=== PATIENT | female | born 1950 | race Caucasian/White ===

== ENCOUNTER 2016-05-12 05:06 | Inpatient (IN) ==
[2016-05-12 06:09] LABS: BASO% 0.2 % (0.0-0.8); HEMATOCRIT 44.8 % (37.0-47.0); HEMOGLOBIN 16.4 g/dL (12.0-16.0); IMM GRAN# 0.08 X1000 (0.0-0.04); IMM GRAN% 0.8 % (0.0-0.5); LYMPH# 1.56 X1000 (1.2-3.4); LYMPH% 14.9 % (20.5-51.1); MANUAL DIFF NEEDED? NO; MCH 30.5 PG (27-31); MCHC 36.6 g/dL (33-37); MCV 83.4 FL (81-99); MONO# 0.71 X1000 (0.11-0.59); MONO% 6.8 % (1.7-9.3); MPV 9.9 FL (7.4-10.4); NEUT% 77.3 % (42.2-75.2); PLT 254 X1000 (130-400); RBC 5.37 XMIL (4.2-5.4)
[2016-05-12 06:12] LABS: URINE CULTURE NEEDED? NO; URINE MICRO REVIEW NEEDED? NO; URINE SOURCE CLEAN CATCH
--- NOTE | 2016-05-12 06:17 | PROVIDER DOCUMENTATION ---
HPI-Neurological Disorder - General Chief Complaint: Stroke-Like Symptoms Stated Complaint: fall Time Seen by Provider: 05/12/16 06:10 Source: patient, family Allergies/Adverse Reactions: Patient Allergies Allergy/AdvReac Type Severity Reaction Status Date / Time NSAIDS (Non-Steroidal Allergy Severe ANGIOEDEMA Verified 07/29/15 22:41 Anti-Inflamma aspirin Allergy ANGIOEDEMA Verified 07/29/15 22:41 ramipril [From Altace] Allergy COUGH Verified 07/29/15 22:41 Home Medications: Home Medication List Medication Instructions Recorded Confirmed Last Taken Type Carisoprodol [Soma] 350 mg PO HS PRN 05/12/16 05/12/16 05/11/16 21:00 History 350 MG Clonidine [Catapres] 0.1 mg PO TID 05/12/16 05/12/16 05/11/16 21:00 History 0.1 MG Clopidogrel Bisulfate [Plavix] 75 mg PO DAILY 05/12/16 05/12/16 05/11/16 09:00 History 75 MG Losartan/Hydrochlorothiazide 1 dose PO DAILY 05/12/16 05/12/16 05/11/16 09:00 History [Hyzaar 50-12.5 Tablet] 1 DOSE Nebivolol HCl [Bystolic] 10 mg PO DAILY 05/12/16 05/12/16 05/11/16 09:00 History 10 MG Pregabalin [Lyrica] 75 mg PO BID 05/12/16 05/12/16 05/11/16 21:00 History 75 MG - History of Present Illness-Neuro Nature of Presenting Problem: per daughter, said her called her, and said had found pt in floor, totally unresponsive. Pt does not know how she got in floor. Admits to small H/A , and nausea. Denies all other, including weakness. later arrived, said he heard noise about 0430, went in BR, prt was unresponsive. She had similar about a year ago, was thought to be due to benzos. Nurse says when she arrived, she could not even tell him her name Severity: reports: mild Onset/Duration: reports: abrupt Timing: reports: gone now Context: reports: found unresponsive by family Approximate time patient was last seen normal?: 22:00 Character of Altered Mental Status: reports: other (was unresponsive, but is A& O now) Any recent trauma/injury?: reports: none New weakness or altered sensation location:: reports: none Cognitive Baseline: alert, oriented x3 Gait Baseline: walks without assistance Associated Symptoms: reports: headache, nausea Similar Symptoms Previously?: Yes (see HPI) Recently seen or treated by another doctor?: No Review of Systems - Adult - REVIEW OF SYSTEMS - ADULT Constitutional: reports: no symptoms reported Eyes: reports: no symptoms reported Ears, Nose, Mouth & Throat: reports: no symptoms reported Cardiovascular: reports: no symptoms reported Respiratory: reports: no symptoms reported Gastrointestinal: reports: no symptoms reported Genitourinary: reports: no symptoms reported Musculoskeletal: reports: no symptoms reported Integumentary: reports: no symptoms reported Neurological: reports: no symptoms reported Psychiatric: reports: no symptoms reported Endocrine: reports: no symptoms reported Hematologic/Lymphatic: reports: no symptoms reported Allergic/Immunologic: reports: no symptoms reported Past History - Adult - PAST MEDICAL HISTORY-ADULT Review of Records: reports: Medications Reviewed Major Childhood Illnesses: reports: denies history Cardiovascular: reports: HTN Neurological: reports: CVA - IMMUNIZATION STATUS Childhood Immunizations: See Nurse Assessment Flu Vaccine: See Nurse Assessment - SOCIAL HISTORY Smoking: denies Physical Exam- Neurological - Physical Exam-Neuro Initial Vital Signs Reviewed: Yes General Appearance: appears well, alert, no apparent distress Eye Exam: bilateral eye: normal inspection, PERRL, EOMI HENMT: normocephalic/atraumatic, moist mucous membranes, normal ENT inspection, pharynx normal Head Injury: no evidence of injury Neck: full range of motion, supple, normal inspection Respiratory: lungs clear, normal breath sounds, no respiratory distress Cardiovascular: normal peripheral pulses, regular rate, rhythm, no edema, no gallop, no murmur Abdominal Exam: non tender, soft Peripheral Pulses: radial (R): 4+, radial (L): 4+ Extremity: normal range of motion, non-tender, no pedal edema 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 Exam: normal hearing, normal speech, PERRL, other (CN II-XII intact) Motor/Sensory: no motor deficit, no sensory deficit, no pronator drift Neurologic: no motor/sensory deficits, other (CN II-XII intact) Integumentary: normal color, normal turgor, warm/dry Psych/Mental Status: normal mood/affect, normal thought content, normal thought process, oriented x 3, other (oriented to self, year, month, not day of week, and is oriented to pl,kasandra, at my exam) Progress - PLAN OF CARE/RESULTS Progress/Plan/Lab Results: Vital Signs Temp Pulse Resp BP Pulse Ox 05/12/16 06:49 79 16 171/106 100 05/12/16 05:10 98.0 F 59 L 16 140/91 97 NSAIDS (Non-Steroidal Anti-Inflamma Allergy (Severe, Verified 07/29/15 22:41) ANGIOEDEMA aspirin Allergy (Verified 07/29/15 22:41) ANGIOEDEMA ramipril [From Altace] Allergy (Verified 07/29/15 22:41) COUGH Carisoprodol [Soma] 350 mg PO HS PRN 05/12/16 Clonidine [Catapres] 0.1 mg PO TID 05/12/16 Clopidogrel Bisulfate [Plavix] 75 mg PO DAILY 05/12/16 Losartan/Hydrochlorothiazide [Hyzaar 50-12.5 Tablet] 1 dose PO DAILY 05/12/16 Nebivolol HCl [Bystolic] 10 mg PO DAILY 05/12/16 Pregabalin [Lyrica] 75 mg PO BID 05/12/16 Dietary Diet Regular Diet Start ThuMay 12 0746 Laboratory 05/12/16 05/12/16 05/12/16 07:25 06:06 06:06 WBC RBC Hgb Hct MCV MCH MCHC RDW Std Deviation Plt Count MPV Immature Gran % (Auto) Neut % (Auto) Lymph % (Auto) [place] % (Auto) Eos % (Auto) Baso % (Auto) Immature Gran # (Auto) Neut # (Auto) Lymph # (Auto) [place] # (Auto) Eos # (Auto) Baso # (Auto) PT INR PTT (Actin FS) D-Dimer Sodium Potassium Chloride Carbon Dioxide Anion Gap BUN Creatinine Estimated GFR/1.73 m2 BUN/Creatinine Ratio Glucose Calculated Osmolality Calcium Total Bilirubin AST ALT Alkaline Phosphatase Troponin T < 0.010 Total Protein Albumin Globulin Albumin/Globulin Ratio Plasma Lactate Urine Source CLEAN CATCH Urine Color YELLOW Urine Turbidity CLEAR Urine pH 6.5 Ur Specific [place] 1.026 Urine Protein 300 A Ur Glucose (Stick) NEGATIVE Ur Ketones (Stick) TRACE A Urine Blood NEGATIVE Urine Nitrite NEGATIVE Urine Bilirubin NEGATIVE Urobilinogen Dipstick NORMAL Urine Leukocytes NEGATIVE Urine WBC (Auto) <10 Urine RBC (Auto) <10 U Epithel Cells (Auto) <10 Urine Bacteria (Auto) NEGATIVE Urine Opiates Screen NONE DETECTED Ur Oxycodone Screen NONE DETECTED Ur Methadone, Qual NONE DETECTED Ur Barbiturates Screen NONE DETECTED Ur Phencyclidine Scrn NONE DETECTED Ur Amphetamines Screen NONE DETECTED U Benzodiazepines Scrn NONE DETECTED Urine Cocaine Screen NONE DETECTED U Cannabinoids Screen NONE DETECTED 05/12/16 05/12/16 05/12/16 05:45 05:45 05:45 WBC RBC Hgb Hct MCV MCH MCHC RDW Std Deviation Plt Count MPV Immature Gran % (Auto) Neut % (Auto) Lymph % (Auto) [place] % (Auto) Eos % (Auto) Baso % (Auto) Immature Gran # (Auto) Neut # (Auto) Lymph # (Auto) [place] # (Auto) Eos # (Auto) Baso # (Auto) PT INR PTT (Actin FS) D-Dimer 1.37 H Sodium Potassium Chloride Carbon Dioxide Anion Gap BUN Creatinine Estimated GFR/1.73 m2 BUN/Creatinine Ratio Glucose Calculated Osmolality Calcium Total Bilirubin AST ALT Alkaline Phosphatase Troponin T < 0.010 Total Protein Albumin Globulin Albumin/Globulin Ratio Plasma Lactate 3.8 H Urine Source Urine Color Urine Turbidity Urine pH Ur Specific [place] Urine Protein Ur Glucose (Stick) Ur Ketones (Stick) Urine Blood Urine Nitrite Urine Bilirubin Urobilinogen Dipstick Urine Leukocytes Urine WBC (Auto) Urine RBC (Auto) U Epithel Cells (Auto) Urine Bacteria (Auto) Urine Opiates Screen Ur Oxycodone Screen Ur Methadone, Qual Ur Barbiturates Screen Ur Phencyclidine Scrn Ur Amphetamines Screen U Benzodiazepines Scrn Urine Cocaine Screen U Cannabinoids Screen 05/12/16 05/12/16 05/12/16 05:45 05:45 05:45 WBC 10.48 RBC 5.37 Hgb 16.4 H Hct 44.8 MCV 83.4 MCH 30.5 MCHC 36.6 RDW Std Deviation 14.9 H Plt Count 254 MPV 9.9 Immature Gran % (Auto) 0.8 H Neut % (Auto) 77.3 H Lymph % (Auto) 14.9 L [place] % (Auto) 6.8 Eos % (Auto) 0.0 Baso % (Auto) 0.2 Immature Gran # (Auto) 0.08 H Neut # (Auto) 8.11 H Lymph # (Auto) 1.56 [place] # (Auto) 0.71 H Eos # (Auto) 0.00 Baso # (Auto) 0.02 PT 11.2 INR 1.06 PTT (Actin FS) 21.9 L D-Dimer Sodium 140 Potassium 3.2 L Chloride 98 Carbon Dioxide 22 L Anion Gap 20 BUN 7 L Creatinine 0.8 Estimated GFR/1.73 m2 > 60 BUN/Creatinine Ratio 9 Glucose 178 H Calculated Osmolality 282 Calcium 9.4 Total Bilirubin 0.76 AST 55 H ALT 44 H Alkaline Phosphatase 98 Troponin T Total Protein 6.9 Albumin 3.8 Globulin 3.1 Albumin/Globulin Ratio 1.2 Plasma Lactate Urine Source Urine Color Urine Turbidity Urine pH Ur Specific [place] Urine Protein Ur Glucose (Stick) Ur Ketones (Stick) Urine Blood Urine Nitrite Urine Bilirubin Urobilinogen Dipstick Urine Leukocytes Urine WBC (Auto) Urine RBC (Auto) U Epithel Cells (Auto) Urine Bacteria (Auto) Urine Opiates Screen Ur Oxycodone Screen Ur Methadone, Qual Ur Barbiturates Screen Ur Phencyclidine Scrn Ur Amphetamines Screen U Benzodiazepines Scrn Urine Cocaine Screen U Cannabinoids Screen Orders Category Date Time Status Admit - [facility] [place] Routine AdmDCTranf 05/12/16 07:44 Ordered Activity - Up Ad Melody ORDERED Care 05/12/16 07:44 Active Call Admitting on Arrival AT ADMISSION Care 05/12/16 07:45 Active Cardiac Monitoring DIRECTED Care 05/12/16 05:10 Active Finger Stick Blood Sugar (ED) DIRECTED Care 05/12/16 05:10 Active Casey Cath Insertion ORDERED Care 05/12/16 06:59 Active Casey Cath Insertion ORDERED Care 05/12/16 07:52 Active IV Insertion ORDERED Care 05/12/16 06:59 Active IV Insertion ORDERED Care 05/12/16 07:52 Active Intake and Output-Strict ORDERED Care 05/12/16 06:59 Active Intake and Output-Strict ORDERED Care 05/12/16 07:52 Active Misc. NRSG Communication Order DIRECTED Care 05/12/16 05:10 Active Neurological Check Q4H Care 05/12/16 07:45 Active Notify MD/PA/[employer] for exam NOW Care 05/12/16 06:59 Active Notify MD/PA/[employer] for exam NOW Care 05/12/16 07:52 Active Nursing- MD Consult Request ROUTINE Care 05/12/16 07:49 Active Repeat Vital Signs .Blood Pressure Care 05/12/16 06:59 Active Repeat Vital Signs .Heart Rate Care 05/12/16 06:59 Active Repeat Vital Signs .Oxygen Saturation Care 05/12/16 06:59 Active Repeat Vital Signs .Respiratory Rate Care 05/12/16 06:59 Active Repeat Vital Signs .Temp Care 05/12/16 06:59 Active Resuscitation Status Routine Care 05/12/16 07:44 Ordered Saline Loc NOW Care 05/12/16 05:10 Active Seizure Precautions ROUTINE Care 05/12/16 07:44 Active Vital Signs Order ARRIVAL TO ROOM Care 05/12/16 07:44 Active Vital Signs Order Q 8-HR .ASSESS Care 05/12/16 07:44 Active Physician/Provider Consults Routine Cons 05/12/16 07:44 Ordered Regular Diet Diet 05/12/16 07:46 Active CHEST-PORTABLE [RAD] Stat Exams 05/12/16 05:10 Taken HEAD W/O CONTRAST [CT] Stat Exams 05/12/16 05:10 Draft MRI BRAIN W W/O CONTRAST [MRI] Stat Exams 05/12/16 07:44 Ordered ABG [RESP] Routine Lab 05/12/16 08:11 Ordered BLOOD CULTURE [BLDCUL] Stat Lab 05/12/16 07:29 Received CBC WITH ELECTRONIC DIFF [HEME] Stat Lab 05/12/16 05:45 Completed COMPREHENSIVE METABOLIC PANEL [CHEM] Stat Lab 05/12/16 05:45 Completed D-DIMER [CHEM] Stat Lab 05/12/16 05:45 Completed LACTATE, PLASMA [CHEM] Stat Lab 05/12/16 05:45 Completed LACTATE, PLASMA [CHEM] Timed Lab 05/12/16 06:59 Ordered LACTATE, PLASMA [CHEM] Timed Lab 05/12/16 07:52 Ordered PROTIME WITH INR [COAG] Stat Lab 05/12/16 05:45 Completed PTT [COAG] Stat Lab 05/12/16 05:45 Completed TROPONIN T Stat Lab 05/12/16 05:45 Completed TROPONIN T Stat Lab 05/12/16 07:25 Completed URINALYSIS W/POSS RFLX CULT [URINALYSIS] Stat Lab 05/12/16 06:06 Completed URINE DRUG SCREEN Stat Lab 05/12/16 06:06 Completed 0.9% Sodium Chloride Inj [Ns] 1,000 ml Med 05/12/16 06:59 Discontinued IV As Directed 0.9% Sodium Chloride Inj [Ns] 500 ml Med 05/12/16 07:00 Active IV 999 mls/hr Dextrose 5%-0.45% NaCl Inj [D5 1/2 Ns] 250 ml Med 05/12/16 07:45 Ordered Norepinephrine [Levophed] 8 mg IV As Directed Dextrose 5%-Water Inj [D5w] 250 ml Med 05/12/16 07:00 Active Epinephrine 8 mg IV As Directed Dextrose 5%-Water Inj [D5w] 250 ml Med 05/12/16 07:45 Ordered Epinephrine 8 mg IV As Directed Labetalol Med 05/12/16 08:02 Ordered 20 mg IV Q4H PRN PRN Levetiracetam [Keppra] Med 05/12/16 09:00 Ordered 500 mg PO BID Levetiracetam [Keppra] 500 mg Med 05/12/16 06:40 Discontinued 0.9% Sodium Chloride Inj [Ns] 100 ml IV NOW Lorazepam [Ativan] Med 05/12/16 07:44 Active 1 mg IV Q4H PRN PRN Lorazepam [Ativan] Med 05/12/16 06:30 Discontinued 2 mg .ROUTE .STK-MED ONE Lorazepam [Ativan] Med 05/12/16 06:40 Discontinued 2 mg IV NOW ONE Meropenem [Merrem] 1 gm Med 05/12/16 06:59 Discontinued 0.9% Sodium Chloride Inj [Ns] 50 ml IV NOW Meropenem [Merrem] 1 gm Med 05/12/16 07:45 Ordered 0.9% Sodium Chloride Inj [Ns] 50 ml IV Q8H Pharmacy Order [Vancomycin IV Per Pharmacy] Med 05/12/16 07:00 Ordered 1 each MISC DIRECTED Pharmacy Order [Vancomycin IV Per Pharmacy] Med 05/12/16 07:45 Ordered 1 each MISC DIRECTED Vasopressin [Pitressin] 40 unit Med 05/12/16 07:45 Ordered 0.9% Sodium Chloride Inj [Ns] 100 ml IV DIRECTED Telemetry [OM.EQ] Routine Oth 05/12/16 07:44 Active EEG, Including Awake & Drowsy Urgent Ther 05/12/16 07:44 Ordered EKG [EKG] Stat Ther 05/12/16 06:53 Draft Transfer/Admit Order [TRANSFER] Routine Transfer 05/12/16 07:43 Ordered - REASSESSMENT Reassessment #1 Time Reassessed: 06:40 (had a 1 min sz. Was given Ativan, loaded with Keppra) Status: worsening - EKG 1 Time of EKG reading by physician:: 06:55 EKG Read and Signed by:: Aly Dhaliwal EKG Interpretation (*Must complete 3 of following elements*): Abnormal Rate: 61 Rhythm: NSR Ashley: normal QRS: LVH, other (NS intravent conduction delay) SD Interval: normal 2 Time of EKG reading by physician:: 07:00 EKG Read and Signed by:: Aly Dhaliwal EKG Interpretation (*Must complete 3 of following elements*): Abnormal Rate: 86 Rhythm: NSR Ashley: normal QRS: LBB SD Interval: normal ST Wave: normal - CONSULTS/PCP/HOSPITALIST Notification #1 *Consult/PCP/Hospitalist*: Emmie Time Discussed: 07:05 Consult Disposition: Admit Departure - Departure Time of Disposition Order: 07:05 DIAGNOSIS: New onset seizure Disposition: ADMITTED INPATIENT 09 Certified Medical Emergency: Emergent Condition: Good
[2016-05-12 06:23] LABS: AGAP 20; ALBUMIN 3.8 g/dL (3.5-5.0); ALKALINE PHOSPHATASE 98 U/L (32-104); BUN 7 mg/dL (8-22); CALCIUM 9.4 mg/dL (8.8-10.2); CHLORIDE 98 mmol/L (98-107); COSMO 282; GOT 55 U/L (10-30); GPT 44 U/L (10-36); POTASSIUM 3.2 mmol/L (3.5-5.1); SODIUM 140 mmol/L (136-145); TCO2 22 mmol/L (25-35); TOTAL BILIRUBIN 0.76 mg/dL (0.20-1.00); TOTAL PROTEIN 6.9 g/dL (6.3-8.3)
[2016-05-12 06:27] LABS: UR AMPHETAMINES QUAL NONE DETECTED (NONE DETECT); UR BARBITUATES QUAL NONE DETECTED (NONE DETECT); UR BENZODIAZEPIN QUAL NONE DETECTED (NONE DETECT); UR CANNABINOIDS QUAL NONE DETECTED (NONE DETECT); UR COCAINE QUAL NONE DETECTED (NONE DETECT); UR METHADONE QUAL NONE DETECTED (NONE DETECT); UR OPIATES QUAL NONE DETECTED (NONE DETECT); UR OXYCODONE QUAL NONE DETECTED (NONE DETECT); UR PCP QUAL NONE DETECTED (NONE DETECT)
[2016-05-12] MEDS ORDERED: ATIVAN ONE (06:30)
[2016-05-12 06:33] LABS: INR 1.06; PROTIME 11.2 Seconds (9.2-11.7); PTT 21.9 Seconds (22.0-36.0)
[2016-05-12] MEDS ORDERED: ATIVAN IV ONE (06:40)
[2016-05-12] MEDS ORDERED: KEPPRA 500 MG in NS 100 ML IV ONE (06:40)
[2016-05-12] MEDS ORDERED: MERREM 1 GM in NS 50 ML IV ONE (06:59)
[2016-05-12] MEDS ORDERED: NS 1,000 ML IV ONE (06:59)
[2016-05-12] MEDS ORDERED: VANCOMYCIN IV PER PHARMACY MISC SCH ×2 (07:00→07:45)
[2016-05-12] MEDS ORDERED: EPINEPHRINE 8 MG in D5W 250 ML IV SCH ×2 (07:00→07:45)
--- NOTE | 2016-05-12 07:10 | EKG Report ---
Test Performed on : 05/12/2016 06:55:07 AM Test Reason : possible rhythm change Blood Pressure : / mmHG Vent. Rate : 086 BPM Atrial Rate : 086 BPM P-R Int : 158 ms QRS Dur : 148 ms QT Int : 450 ms P-R-T Axes : 052 -13 142 degrees QTc Int : 538 ms Normal sinus rhythm. Left bundle branch block Abnormal ECG When compared with ECG of 12-MAY-2016 05:37, (Unconfirmed) Left bundle branch block is now present Unconfirmed Result
[2016-05-12 07:25] LABS: BILIRUBIN URINE NEGATIVE (NEGATIVE); BLOOD URINE NEGATIVE (NEGATIVE); COLOR YELLOW; GLUCOSE URINE NEGATIVE (NEGATIVE); LEUKOCYTES URINE NEGATIVE (NEGATIVE); NITRITE URINE NEGATIVE (NEGATIVE); PH URINE 6.5; PROTEIN URINE 300 mg/dL (NEGATIVE); SP GRAVITY URINE 1.026; TURBIDITY URINE CLEAR (CLEAR); UROBILINOGEN URINE NORMAL (NORMAL)
[2016-05-12 07:26] LABS: UR EPITHELIAL CELLS <10 /HPF (<10); URINE BACTERIA NEGATIVE /HPF; URINE RBC <10 /HPF (<10); URINE WBC <10 /HPF (<10)
[2016-05-12] MEDS ORDERED: ATIVAN IV PRN (07:44)
[2016-05-12] MEDS ORDERED: LEVOPHED 8 MG in D5 1/2 NS 250 ML IV SCH (07:45)
[2016-05-12] MEDS ORDERED: PITRESSIN 40 UNIT in NS 100 ML IV SCH (07:45)
[2016-05-12] MEDS ORDERED: LABETALOL IV PRN (08:02)
--- NOTE | 2016-05-12 08:14 | Diag Imaging Result Document ---
PROCEDURE NAME: HEAD W/O CONTRAST - 05/12/2016 CT OF THE HEAD WITHOUT CONTRAST: FINDINGS: There is some subcortical white matter lucency in the anterior parietal and frontal lobes, and there is a lacune in the inferior basal ganglia on the left side measuring up to 8 mm in size. Compared to 07/29/2015, this has not changed significantly. There is no evidence of bleed or abnormal extra-axial fluid collection. The paranasal sinuses are clear. The calvarium is intact. IMPRESSION: Chronic microvascular ischemic disease. No evidence of acute disease.
--- NOTE | 2016-05-12 08:42 | HISTORY AND PHYSICAL ---
HISTORY: Ms. Quesada, who is a 65-year-old, white female, was brought to the emergency room after she became unresponsive in her bathroom. She has a known case of hypertension, had a history of CVA and TIAs in the past. She also has a history of poliomyelitis. She has been on multiple medications for hypertension and the blood pressure was also slightly elevated. While she was in the emergency room, she had a seizure and it apparently appears like she probably had a seizure while she was in the bathroom because she became more alert after an hour and oriented, and then she suddenly had another seizure and became confused. PAST SURGICAL HISTORY: Laparoscopic cholecystectomy, hysterectomy, 1 back surgery, and 1 surgery on her left leg with a ana placed in the leg where she had polio. PERSONAL, PAST FAMILY HISTORY: She is a nonsmoker. Does not drink. MEDICATIONS: She is on multiple medications including Norvasc, Catapres, and losartan for hypertension. REVIEW OF SYSTEMS: At present cannot be obtained on account of confusion. PHYSICAL EXAMINATION: VITAL SIGNS: Temperature normal, pulse 100 per minute, respiratory rate 20 per minute. Blood pressure was 158/96. HEENT: Head normocephalic. Pupils PERRLA. Fundus examination could not be done. Neck supple. JVP normal. ENT examination unremarkable. There is no evidence of lymphadenopathy, thyroid enlargement, pedal edema, calf tenderness, anemia, cyanosis, or clubbing. EXTREMITIES: Pedal pulses are well felt. There is minimal leg edema. She has some feet deformity on account of polio. BREASTS: Examination not done. CHEST: Normal inspection. LUNGS: Clear on auscultation. CARDIAC: PMI in the normal position. Heart sounds normal. No murmur, gallop, or rub noted. ABDOMEN: Nondistended. Hernial orifices normal. No guarding, rigidity, free fluid, masses, or organomegaly. Bowel sounds normal. RECTAL: Examination deferred. CONTINUITY MANAGER: Higher functions normal. Cranial nerves normal. Motor and sensory system examination unremarkable except that she has muscle wasting in both legs, more on the left side. Deep tendon reflexes are absent in the legs. Plantars downgoing. Skull and spine examination reveals a scar. A detailed exam could not be done. No signs of meningeal irritation noted. Locomotor exam unremarkable except for painful movements of the left knee. CLINICAL IMPRESSION: 1. The patient became unresponsive, possibly postictal effect. 2. History of transient ischemic attacks. 3. History of previous cerebrovascular accident. PLAN: CT scan initially is negative. Neurologic consult has been obtained. MRI as well as EEG have been ordered. We are giving her IV Keppra 1 dose and labetalol IV will be given p.r.n.
[2016-05-12] MEDS ORDERED: KEPPRA PO SCH (09:00)
--- NOTE | 2016-05-12 09:27 | EKG Report ---
Test Performed on : 05/12/2016 05:37:50 AM Test Reason : No Order in [facility] Blood Pressure : / mmHG Vent. Rate : 061 BPM Atrial Rate : 061 BPM P-R Int : 138 ms QRS Dur : 100 ms QT Int : 474 ms P-R-T Axes : 054 -01 087 degrees QTc Int : 477 ms Normal sinus rhythm. Left ventricular hypertrophy with repolarization abnormality Abnormal ECG When compared with ECG of 30-JUL-2015 00:24, [id number] is no longer present Confirmed by Paul YOUNG, Alejandro Bernstein ([id number]) on 05/12/2016 4:34:26 PM
[2016-05-12] MEDS ORDERED: LABETALOL ONE (09:46)
[2016-05-12 10:01] LABS: ALLEN TEST YES; BE 0.3 mmoll (-3.0-3.0); BLOOD TYPE ARTERIAL; DRAW SITE R RADIAL; METHB 1.8 % (0.0-1.5); O2(CT) 18.9 mL/dL (15.0-23.0); PCO2(98.6) 38 mmHg (35-45); PO2(98.6) 95 mmHg (60-100); SAMPLE BLOOD; SAO2 99.4 % (95.0-100.0); pH(98.6) 7.42 (7.35-7.45)
[2016-05-12 10:02] LABS: MODALITY CANNULA
--- NOTE | 2016-05-12 10:04 | Diag Imaging Result Document ---
PROCEDURE NAME: MRI BRAIN W W/O CONTRAST - 05/12/2016 MRI OF THE BRAIN WITH AND WITHOUT GADOLINIUM: FINDINGS: There is severe diffuse hyperintensity throughout the white matter of both hemispheres. There is no evidence of restricted diffusion. There is no evidence of bleed or abnormal extra- axial fluid collection. There is some cortical hyperintensity on FLAIR particularly in the posterior hemispheres. There is considerable patient motion but no evidence of abnormal gadolinium enhancement is present. Compared to the previous examination of 08/16/2015, white matter changes in the posterior hemispheres have worsened. The appearance is somewhat similar to the previous study of 07/30/2015 at which point the original diagnosis of posterior reversible encephalopathy syndrome was made. IMPRESSION: Recurrent posterior reversible encephalopathy syndrome.
--- NOTE | 2016-05-12 10:06 | Diag Imaging Result Document ---
PROCEDURE NAME: CHEST-PORTABLE - 05/12/2016 AP PORTABLE CHEST, 05/12/2016 AT 0515 HOURS: FINDINGS: There is no evidence of acute cardiac or pulmonary disease. Compared to 07/29/2015, there has been no significant change in the appearance of the chest. IMPRESSION: No evidence of acute disease.
[2016-05-12] MEDS ORDERED: NS 1,000 ML ONE (10:20)
[2016-05-12] MEDS ORDERED: VANCOMYCIN 1,800 MG in NS 250 ML IV ONE (11:00)
[2016-05-12] MEDS ORDERED: DILAUDID ONE (11:50)
[2016-05-12] MEDS ORDERED: ZOFRAN ONE (11:50)
[2016-05-12] MEDS: ZOFRAN IV PRN ×2 (11:54→19:42)
[2016-05-12] MEDS: DILAUDID IV PRN ×3 (11:58→19:54)
[2016-05-12] MEDS: NS 500 ML IV SCH ×2 (13:44→13:48)
--- NOTE | 2016-05-12 14:03 | CONSULTATION ---
DATE OF CONSULTATION: 05/12/2016 Ms. Quesada is 65 years old. History from review of the available hospital record sounds like she had seizure at home and then a 2nd seizure witnessed in the emergency room. Based on report, these were generalized without focal features. Today, she reports no previous history of seizure. She remembers feeling odd with nothing specific and then she had a sense that she "blacked out." Workup here includes labs showing blood sugar 178, slightly elevated liver enzymes, unremarkable chemistry otherwise, unremarkable CBC. Urine drug screen was all negative, ( she takes carisoprodol regularly and has had drug screen positive for barbiturates in the past consistent with that, and she reports not missing any carisoprodol doses this time, but drug screen is all negative this time ). Noncontrast CT showed usual changes and nothing different compared to scan done 07/29/2015. Brain MRI this morning is reported to show bilateral posterior signal which is similar to what she had on MRI scan in July last year, and much more prominent than she had on the followup MRI scan done a few weeks later. Now, she reports having some headaches. She believes that she had not missed any medicine doses and believes she was taking her blood pressure medicine correctly. She feels chilled. Record here shows systolic blood pressure is 140s-170s, heart rate 59-79, afebrile. PHYSICAL EXAMINATION: On exam, she is awake, alert, attentive. She recognized me and called me by name. Conversation was appropriate. Speech is not dysarthric. Language function is intact. Remote memory is good. Recent memory is uncertain. She has full visual mora tested carefully by confrontational finger counting. Extraocular movements are full. Right pupil is larger than the left but both react briskly to bright light. Facial motility is symmetric. Gag is intact. Tongue is midline. Hearing is fair. Shoulder shrug is equal. Strength is unchanged. She has chronic post-polio deficit. I did not test her gait. IMPRESSION: History sounds like recent seizures. This would not be unusual with hypertensive encephalopathy, and with the brain imaging changes as noted. She has some very minor metabolic findings but nothing that generally would be associated with seizure or encephalopathy. Meprobamate withdrawal after missing carisoprodol might be associated with seizure. At this point, she seems stable clinically, stable neurologically. We will need to consider repeating her MRI scan in 2-4 weeks, sooner if she deteriorates or has new problems. EEG this morning showed generalized slowing but no evidence of epileptiform discharge. Levetiracetam 500 mg b.i.d. has been added and we can continue that short term until we see how she is doing clinically. We need to continue aggressive management of blood pressure, aggressive management of blood sugar, watch for withdrawal symptoms. Thanks for asking me to see Ms. Quesada. [facility]
--- NOTE | 2016-05-12 16:04 | EEG REPORT ---
DATE: 05/12/2016 PATIENT LOCATION: Emergency department holding bed. COMMENT: This is a digitally recorded EEG on a 65-year-old patient with apparent recent seizures, history of likely posterior reversible encephalopathy syndrome. FINDINGS: During waking, polymorphic and rhythmic slowing in the theta and delta range is prominent across both hemispheres. There is very poorly sustained posterior rhythm at 7 Hz intermittently. Some beta rhythm is present centrally. There was no variation to correlate with spontaneous drowsing and sleep. Activating procedures were not done. No definite epileptiform discharge was identified. INTERPRETATION: Abnormal EEG because of generalized slowing. CORRELATION: This is indicative of a diffuse encephalopathy and is nonspecific. The absence of epileptiform discharges on a single EEG does not exclude a clinical diagnosis of seizures.
[2016-05-12] MEDS: MERREM 1 GM in NS 50 ML IV SCH (17:45)
[2016-05-12] MEDS: D5 1/2 NS + KCL 30 MEQ 1,000 ML IV SCH (19:45)
[2016-05-12] MEDS ORDERED: KEPPRA 500 MG in NS 100 ML IV SCH (20:30)
[2016-05-13] MEDS: ZOFRAN IV PRN (01:05)
[2016-05-13] MEDS: DILAUDID IV PRN ×3 (01:05→20:24)
[2016-05-13] MEDS: MERREM 1 GM in NS 50 ML IV SCH ×3 (03:00→17:34)
[2016-05-13 07:17] LABS: AGAP 11; BUN 3 mg/dL (8-22); CHLORIDE 103 mmol/L (98-107); COSMO 281; SODIUM 142 mmol/L (136-145); TCO2 28 mmol/L (25-35)
[2016-05-13 07:42] LABS: CALCIUM 8.2 mg/dL (8.8-10.2)
[2016-05-13 07:43] LABS: POTASSIUM 2.5 mmol/L (3.5-5.1)
[2016-05-13] MEDS: D5 1/2 NS + KCL 30 MEQ 1,000 ML IV SCH ×2 (08:34→20:16)
[2016-05-13] MEDS: CATAPRES PO SCH ×2 (09:00→20:16)
[2016-05-13] MEDS: KEPPRA PO SCH ×2 (09:00→20:16)
[2016-05-13] MEDS: COZAAR PO SCH (09:00)
--- NOTE | 2016-05-13 09:10 | Diag Imaging Result Document ---
PROCEDURE NAME: CHEST-PORTABLE - 05/13/2016 AP PORTABLE CHEST: TIME: 0500 hours. FINDINGS: There is atelectasis present in the left base. The inspiration is suboptimal. Otherwise, compared with the previous study of 05/12/2016, there has been no significant change. IMPRESSION: Worsened left lower lobe atelectasis.
--- NOTE | 2016-05-13 09:25 | PROGRESS NOTE ---
DATE: 05/13/2016 SUBJECTIVE: Ms. Quesada in ICU 6. She is doing better. She is more alert. There were no seizures last night. OBJECTIVE: Her potassium is 2.5. ASSESSMENT AND PLAN: We are going to give her supplemental potassium, start oral antihypertensive medications, repeat Chem-7 again in the morning.
--- NOTE | 2016-05-13 09:57 | PROGRESS NOTE ---
DATE: 05/13/2016 PATIENT LOCATION: ICU bed 6. Ms. Quesada is more alert and more attentive today. She has full visual mora. Facial motility is good bilaterally. There is no new motor deficit in the limbs. She has not had any more typical clinical seizure episodes reported. Since she is more alert and attentive, I reviewed her history today. She reports no previous history of seizure. She reports taking her carisoprodal 1 pill daily regularly without recent missing doses. She denies using illicit drugs and she denies using ethanol or benzodiazepines. We reviewed the MRI findings and discussed the clinical course she had last summer when she presented with similar findings. I am optimistic that she will again recover spontaneously. I encouraged her to be aggressive with management of blood pressure and to make sure she is taking all of her medicines correctly. No new suggestions today. Thanks for asking me to see Ms. Quesada. MTDD
[2016-05-13] MEDS: POTASSIUM CHLORIDE 20 MEQ/SWI 100 ML IV SCH ×2 (10:30→14:51)
[2016-05-13] MEDS: VANCOMYCIN 1,500 MG in NS 250 ML IV SCH (13:16)
[2016-05-13 17:00] LABS: AGAP 9; BUN 4 mg/dL (8-22); CALCIUM 7.5 mg/dL (8.8-10.2); CHLORIDE 103 mmol/L (98-107); COSMO 278; POTASSIUM 3.1 mmol/L (3.5-5.1); SODIUM 140 mmol/L (136-145); TCO2 28 mmol/L (25-35)
[2016-05-13] MEDS ORDERED: ULTRAM PO SCH (17:00)
[2016-05-13] MEDS: ULTRAM PO PRN (17:58)
[2016-05-14] MEDS: MERREM 1 GM in NS 50 ML IV SCH ×3 (01:19→18:01)
[2016-05-14] MEDS: DILAUDID IV PRN ×3 (05:51→19:35)
[2016-05-14 06:31] LABS: AGAP 9; BUN 6 mg/dL (8-22); CALCIUM 7.9 mg/dL (8.8-10.2); CHLORIDE 107 mmol/L (98-107); COSMO 282; POTASSIUM 3.3 mmol/L (3.5-5.1); SODIUM 142 mmol/L (136-145); TCO2 26 mmol/L (25-35)
[2016-05-14] MEDS ORDERED: CELEBREX PO SCH (09:00)
--- NOTE | 2016-05-14 09:03 | PROGRESS NOTE ---
DATE: 05/14/2016 Ms. Quesada is doing somewhat better. She is alert. She still does not have appetite. She is complaining about back pain. We are going to x-ray the lumbar spine to make sure that she did not have any injury to the back. Her lungs sound clear. However, chest x-ray shows worsening of the atelectasis. We will start the incentive spirometry. She is already on the antibiotics. We are also going to start physical therapy on her as soon as we can. We have reviewed all her medications. We will transfer her to the floor if possible.
[2016-05-14] MEDS: CATAPRES PO SCH ×2 (09:41→20:06)
[2016-05-14] MEDS: KEPPRA PO SCH ×2 (09:41→20:05)
[2016-05-14] MEDS: COZAAR PO SCH (09:41)
--- NOTE | 2016-05-14 10:38 | Diag Imaging Result Document ---
PROCEDURE NAME: LUMBAR SPINE - 05/14/2016 LUMBOSACRAL SPINE SERIES WITH OBLIQUES 6 VIEWS: FINDINGS: The pedicles are intact. There is mild generalized curvature of the thoracolumbar spine with convexity to the left. There is generalized osteopenia. There is loss of height of T11 and the upper endplate of L3 is collapsed particularly on the left side. The T11 vertebral compression fracture was present at the time of the abdominal study of 08/17/2012. The compression of the upper endplate of L3 is not present at that time. No other previous studies which demonstrate the lumbar spine are available for comparison. IMPRESSION: Osteoporosis with old compression fracture of T11 and compression fracture of the upper endplate of L3 of uncertain age. No evidence of subluxation.
[2016-05-14] MEDS: VANCOMYCIN 1,500 MG in NS 250 ML IV SCH (11:53)
[2016-05-14] MEDS: D5 1/2 NS + KCL 30 MEQ 1,000 ML IV SCH ×2 (14:07→20:50)
--- NOTE | 2016-05-14 14:40 | PROGRESS NOTE ---
DATE: 05/14/2016 Ms. Quesada is more alert, brighter, maintaining her attention better today. She carried on more appropriate conversation with me today. Her back has been hurting. Lumbar spine x-ray shows a lot of old changes including compression fractures. She has not had a definite clinical seizure since admission. 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 I hope we will see same pattern this year. We can plan to repeat MRI of the brain in 2-4 weeks and we can do that sooner if she deteriorates. I encouraged her to be aggressive with management of her medical problems and to be careful with her medications. MTDD
[2016-05-14] MEDS: ZOFRAN IV PRN (17:10)
[2016-05-15] MEDS: MERREM 1 GM in NS 50 ML IV SCH ×3 (01:05→21:09)
[2016-05-15] MEDS: DILAUDID IV PRN ×4 (01:07→19:37)
--- NOTE | 2016-05-15 09:17 | PROGRESS NOTE ---
DATE: 05/15/2016 Ms. Quesada reports continued improvement. She feels a little bit stronger. She got herself up to a chair. She has not had any further seizure. I do not have any new suggestions today. I remain optimistic that with time and attention to her medical problems, she will continue stable and improving as she did following the episode last year. Thanks for allowing me to follow Ms. Quesada.
--- NOTE | 2016-05-15 09:21 | PROGRESS NOTE ---
DATE: 05/15/2016 SUBJECTIVE: Ms. Quesada is doing about the same. She is in a lot of pain, especially the back pain. I am wondering if we should put her on stronger narcotic pain medications. Physical therapy has been started. She has fracture of lumbar 3 of uncertain age, and we will try to do bone scan to find out about whether the age of the fracture is recent or old. I discussed with her about rehabilitation, and so far she has flatly refused to go to rehabilitation. Overall condition is unchanged. We will continue with the current management. She is getting physical therapy. Her O2 saturation was 97% this morning. We will repeat a chest x-ray in the morning.
[2016-05-15] MEDS: LYRICA PO SCH ×3 (09:35→21:08)
[2016-05-15] MEDS: COZAAR PO SCH (09:35)
[2016-05-15] MEDS: BYSTOLIC PO SCH ×2 (09:35→09:36)
[2016-05-15] MEDS: CATAPRES PO SCH ×2 (09:35→21:08)
[2016-05-15] MEDS: PLAVIX PO SCH ×2 (09:35)
[2016-05-15] MEDS: D5 1/2 NS + KCL 30 MEQ 1,000 ML IV SCH (09:36)
[2016-05-15] MEDS: KEPPRA PO SCH ×2 (09:36→21:08)
[2016-05-15] MEDS: VANCOMYCIN 1,500 MG in NS 250 ML IV SCH (15:04)
--- NOTE | 2016-05-15 15:13 | Diag Imaging Result Document ---
PROCEDURE NAME: BONE SCAN, TOTAL BODY - 05/15/2016 NUCLEAR MEDICINE WHOLE BODY BONE SCAN: COMPARISON: No prior bone scan is available for comparison. FINDINGS: 26.1 mCi of technetium-99 MDP was administered intravenously, and images of the whole body were obtained in the usual fashion post administration. There is very mild bandlike increased uptake involving the superior endplate of L3 corresponding to the height loss seen on a recent lumbar spine radiograph. This suggests that the compression fracture is subacute or late subacute. There is also mild increased uptake involving what appears to be either the T4 or T5 level. This may represent degenerative uptake. It also may represent a recent compression fracture. Correlation with a plain radiograph of the thoracic spine is recommended to evaluate for height loss. If so, this is probably late acute to subacute. Otherwise, there is increased uptake at the medial tibial plateau of the left leg that is probably degenerative. No other abnormal increased uptake is identified. There is normal excretion of radiotracer by the system and normal soft tissue uptake. IMPRESSION: 1. Very mild increased uptake associated with L3 likely representing a subacute compression fracture. 2. Also mild increased uptake associated with 1 of the thoracic levels, probably T4 or T5 as detailed above. 3. Degenerative uptake involving the left knee. MTDD
[2016-05-15] MEDS: ULTRAM PO PRN (17:02)
[2016-05-15] MEDS: NORCO-5 PO PRN (21:08)
[2016-05-16] MEDS: ZOFRAN IV PRN ×4 (01:44→18:38)
[2016-05-16] MEDS: DILAUDID IV PRN ×4 (01:44→20:48)
[2016-05-16] MEDS: D5 1/2 NS + KCL 30 MEQ 1,000 ML IV SCH ×3 (01:45→20:46)
[2016-05-16] MEDS: MERREM 1 GM in NS 50 ML IV SCH ×3 (02:39→18:38)
[2016-05-16] MEDS: NORCO-5 PO PRN (05:07)
[2016-05-16 05:49] LABS: AGAP 10; BUN 5 mg/dL (8-22); CALCIUM 8.4 mg/dL (8.8-10.2); CHLORIDE 107 mmol/L (98-107); COSMO 283; POTASSIUM 3.9 mmol/L (3.5-5.1); SODIUM 143 mmol/L (136-145); TCO2 26 mmol/L (25-35)
[2016-05-16] MEDS: LYRICA PO SCH ×2 (08:14→20:43)
[2016-05-16] MEDS: BYSTOLIC PO SCH (08:14)
[2016-05-16] MEDS: PLAVIX PO SCH (08:14)
[2016-05-16] MEDS: CATAPRES PO SCH ×2 (08:14→20:43)
[2016-05-16] MEDS: KEPPRA PO SCH ×2 (08:14→20:43)
[2016-05-16] MEDS: COZAAR PO SCH (08:15)
--- NOTE | 2016-05-16 08:15 | Diag Imaging Result Document ---
PROCEDURE NAME: CHEST-2 VIEWS - 05/16/2016 CHEST X-RAY, 2 VIEWS: COMPARISON: 05/13/2016. FINDINGS: There is improvement in the band-like infiltrate in the left lung base. There is some stable patchy infiltrate in the right lung base. There is decrease in the pulmonary vascular congestion. Heart size remains normal. There are trace pleural effusions. IMPRESSION: Slight improvement from prior.
--- NOTE | 2016-05-16 08:18 | Diag Imaging Result Document ---
PROCEDURE NAME: THORACIC SPINE - 05/15/2016 CHEST X-RAY, 2 VIEWS: COMPARISON: 05/14/2016, 07/29/2015, 08/17/2012. FINDINGS: There is a compression fracture at T11 that has been present since at least 08/17/2012. There is a new T4 compression fracture that was not visible on any prior exams. This demonstrates about 75% loss of height. IMPRESSION: Apparently new compression fracture at T4.
--- NOTE | 2016-05-16 09:34 | PROGRESS NOTE ---
DATE: 05/16/2016 Ms. Quesada is awake and alert. She has not had any more seizures. She still has a good bit of discomfort in her back, worse when she tries to be up. She has not stood unassisted. She has had workup including x-ray and bone scan. I do not have any new suggestion from neurologic standpoint today. I remain optimistic that she will continue to improve. We will need to consider repeat MRI as before. Thanks for allowing me to follow Ms. Quesada.
--- NOTE | 2016-05-16 10:45 | PROGRESS NOTE ---
DATE: 05/16/2016 SUBJECTIVE: Ms Quesada is still in a lot of pain. She has a fracture of the T4, which is new, and L3 is also partly new. She has some shortness of breath. She is improving as far as atelectasis is concerned. Overall, her condition is otherwise unchanged. PLAN: I am going to change from Nara Visa to Percocet. Also, I am going to ask for Dr. Escobar's help for osteoporosis and Dr. Bowles for an orthopedic consult for her spine fractures.
[2016-05-16] MEDS: PERCOCET-5 PO PRN ×2 (11:37→18:38)
[2016-05-16] MEDS: VANCOMYCIN 1,500 MG in NS 250 ML IV SCH (15:01)
[2016-05-16] MEDS: SOMA PO PRN (22:21)
[2016-05-17] MEDS: MERREM 1 GM in NS 50 ML IV SCH ×3 (02:00→17:35)
[2016-05-17] MEDS: PERCOCET-5 PO PRN ×3 (08:20→21:50)
[2016-05-17] MEDS: PLAVIX PO SCH (08:30)
[2016-05-17] MEDS: COZAAR PO SCH (08:30)
[2016-05-17] MEDS: KEPPRA PO SCH ×2 (08:30→20:18)
[2016-05-17] MEDS: LYRICA PO SCH ×2 (08:30→20:18)
[2016-05-17] MEDS: BYSTOLIC PO SCH (08:30)
[2016-05-17] MEDS: CATAPRES PO SCH ×2 (08:30→20:18)
[2016-05-17] MEDS: DILAUDID IV PRN ×2 (09:30→17:46)
[2016-05-17] MEDS: ZOFRAN IV PRN ×2 (09:32→15:30)
[2016-05-17] MEDS ORDERED: CALTRATE 600 ONE (12:52)
[2016-05-17] MEDS: CALTRATE 600 PO SCH (12:53)
[2016-05-17] MEDS: VITAMIN D PO SCH (12:53)
--- NOTE | 2016-05-17 14:18 | PROGRESS NOTE ---
DATE: 05/17/2016 SUBJECTIVE: Interval history was reviewed. 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 MRI of the brain showed reversible encephalopathy syndrome. She was transferred out of the ICU to a step-down unit. Upon questioning, there is no headache and no fever. Previous H and P, medications were reviewed from Dr. Olea's notes. REVIEW OF SYSTEMS: HEENT: No headache. No vision problems. Cardiopulmonary: No cough. No chest pain, shortness of breath, PND, or orthopnea. Gastrointestinal: No nausea, vomiting, abdominal pain. Genitourinary: He had a Casey catheter placed. Musculoskeletal: Complains of mid back pain on back brace. Neurologic: No weakness. PAST MEDICAL HISTORY: Reviewed. MEDICATIONS: Reviewed. PHYSICAL EXAMINATION: Vital Signs: Temperature is 98 degrees, pulse is 63, respirations 18, blood pressure is 135/79, saturation 92%. HEENT: Atraumatic, normocephalic. Pupils equal, reactive to light. Neck: Supple. No lymphadenopathy. No goiter. Chest: Clear to auscultation. No signs of pneumonitis. Heart: Sounds are regular. No murmur. Abdomen: Soft, obese, nontender. Genitourinary: Casey catheter was placed. Extremities: Left leg is weak due to polio and had a scar present anteriorly. Left upper extremity is edematous from the IV fluids. INVESTIGATIONS: Chest x-ray: Possible left lower lobe infiltrate. MRI showed reversible encephalopathy syndrome. X-ray of the L-spine showed L3 compression fracture. Bone scan: Compression fracture at T1, T12, and L3. ASSESSMENT AND PLAN: 1. History of seizure, etiology to be determined, probably hypotensive with reversible encephalopathy syndrome, on Keppra 500 p.o. b.i.d. 2. Hypertension, controlled on Cozaar 100 mg once daily, clonidine 0.2 p.o. b.i.d., and Bystolic 10 mg daily. 3. Chronic pain, on Lyrica. 4. Possible aspiration pneumonia, left lower lobe, on vancomycin and meropenem. We will do the blood workup and a chest x-ray in the morning. 5. Osteoporotic compression fractures due to trauma, on back brace. Will add calcitonin nasal spray, calcium with vitamin D. 6. Plan of care today: Discontinue Casey in the morning. Out of bed with physical therapy. Also, consider osteoporosis plan down the line and follow up. cc: MD Juan Schmid MD
[2016-05-17] MEDS: VANCOMYCIN 1,500 MG in NS 250 ML IV SCH (15:30)
[2016-05-17] MEDS: FORTICAL NAS SCH (17:05)
[2016-05-17] MEDS: D5 1/2 NS + KCL 30 MEQ 1,000 ML IV SCH (17:11)
[2016-05-17] MEDS: SOMA PO PRN (20:18)
[2016-05-18] MEDS: D5 1/2 NS + KCL 30 MEQ 1,000 ML IV SCH (00:19)
[2016-05-18] MEDS: MERREM 1 GM in NS 50 ML IV SCH ×3 (01:58→17:48)
[2016-05-18] MEDS: DILAUDID IV PRN ×4 (02:03→21:08)
[2016-05-18] MEDS: ZOFRAN IV PRN ×4 (03:35→22:14)
[2016-05-18] MEDS: PERCOCET-5 PO PRN ×4 (03:35→22:14)
[2016-05-18 05:27] LABS: MANUAL DIFF NEEDED? NO
[2016-05-18 05:30] LABS: BASO% 0.5 % (0.0-0.8); HEMATOCRIT 35.2 % (37.0-47.0); HEMOGLOBIN 12.4 g/dL (12.0-16.0); IMM GRAN# 0.02 X1000 (0.0-0.04); IMM GRAN% 0.5 % (0.0-0.5); LYMPH# 0.87 X1000 (1.2-3.4); LYMPH% 22.4 % (20.5-51.1); MCH 31.1 PG (27-31); MCHC 35.2 g/dL (33-37); MCV 88.2 FL (81-99); MONO# 0.56 X1000 (0.11-0.59); MONO% 14.4 % (1.7-9.3); MPV 9.6 FL (7.4-10.4); NEUT% 62.2 % (42.2-75.2); PLT 141 X1000 (130-400); RBC 3.99 XMIL (4.2-5.4)
[2016-05-18 05:52] LABS: AGAP 9; BUN 6 mg/dL (8-22); CALCIUM 9.1 mg/dL (8.8-10.2); CHLORIDE 105 mmol/L (98-107); COSMO 279; POTASSIUM 3.8 mmol/L (3.5-5.1); SODIUM 141 mmol/L (136-145); TCO2 27 mmol/L (25-35)
[2016-05-18] MEDS: PLAVIX PO SCH (08:35)
[2016-05-18] MEDS: CATAPRES PO SCH ×2 (08:35→21:08)
[2016-05-18] MEDS: KEPPRA PO SCH ×2 (08:35→21:08)
[2016-05-18] MEDS: COZAAR PO SCH (08:35)
[2016-05-18] MEDS: LYRICA PO SCH ×2 (08:35→21:08)
[2016-05-18] MEDS: CALTRATE 600 PO SCH (08:35)
[2016-05-18] MEDS: VITAMIN D PO SCH (08:35)
[2016-05-18] MEDS: BYSTOLIC PO SCH (08:35)
[2016-05-18] MEDS: FORTICAL NAS SCH (08:40)
--- NOTE | 2016-05-18 09:26 | Diag Imaging Result Document ---
PROCEDURE NAME: CHEST-2 VIEWS - 05/18/2016 CHEST 2 VIEWS: Compared with 05/16/2016. FINDINGS: Heart size is normal. Inspiration is mildly shallow. There is mild basilar subsegmental atelectasis. There is no consolidation, substantial pleural effusion, or pneumothorax identified. IMPRESSION: Mildly shallow inspiration. No indication of pneumonia.
--- NOTE | 2016-05-18 11:58 | PROGRESS NOTE ---
DATE: 05/18/2016 INTERVAL HISTORY: The patient is doing very well. No complaints. Not able tolerate calcitonin due to irritation of the nose. REVIEW OF SYSTEMS: Swelling of feet and the hands is improving. All other review of systems are normal. PHYSICAL EXAMINATION: Vital Signs: Afebrile. Vitals are stable. Blood pressure is 152/72. HEENT: Atraumatic, normocephalic. Pupils equal, reactive to light. Neck: Supple. No lymphadenopathy. Chest: No signs of pneumonitis. Cardiovascular: Heart sounds are regular. Abdomen: Belly is soft, obese, nontender. Good bowel sounds. Extremities: No peripheral edema. Weakness on the left leg due to polio. LABORATORIES: White cell count 3.8, hematocrit 35, platelets 141,000, SMA 7, normal. Chest x- ray: Improved left lower lobe infiltrate. Blood cultures were negative. ASSESSMENT AND PLAN: 1. Left lower lobe pneumonia. Improved. Continue on IV vancomycin. 2. History of seizures on Keppra. Plan of care: Discontinue IV fluids, discontinue Casey catheter. 3. Hypotension. We will check the orthostatic blood pressure. 4. Osteoporotic compression fracture at L3 and thoracic spine. Out of bed with physical therapy today. Dr. Olea going to follow up. cc: MD Juan Schmid MD
[2016-05-18] MEDS: KLOR-CON PO SCH ×2 (14:08→17:48)
[2016-05-18] MEDS: VANCOMYCIN 1,500 MG in NS 250 ML IV SCH (16:06)
[2016-05-18] MEDS: SOMA PO PRN (21:08)
[2016-05-19] MEDS: MERREM 1 GM in NS 50 ML IV SCH ×2 (02:06→11:17)
[2016-05-19] MEDS: DILAUDID IV PRN ×2 (03:02→09:30)
[2016-05-19] MEDS: PERCOCET-5 PO PRN ×2 (04:27→10:37)
[2016-05-19] MEDS: ZOFRAN IV PRN ×2 (04:28→10:38)
[2016-05-19 08:30] VITALS: BP 126/84
[2016-05-19] MEDS ORDERED: LASIX PO SCH (09:00)
--- NOTE | 2016-05-19 09:16 | PROGRESS NOTE ---
DATE: 05/19/2016 Ms. Quesada reports continued back pain, improved with her corset brace. She has been able to get up and walk and is able to tolerate that pain. She believes she may be discharged home soon. She has not had any further seizures. She continues levetiracetam 500 mg b.i.d. as a precaution. She has resumed her previous medications including carisoprodol p.r.n., lorazepam p.r.n. I agree with plans for physical therapy and discharge. She will need follow-up MRI electively, not urgent. Thanks again for allowing me to follow Ms. Quesada. cc: MD Juan Huffman III, MD MTDD
--- NOTE | 2016-05-19 09:17 | PROGRESS NOTE ---
DATE: 05/19/2016 SUBJECTIVE: Ms Quesada is doing better. OBJECTIVE: Her vital signs are stable. Lungs are clear. Heart sounds are normal. She will be discharged today with a prescription of Keppra as well as antibiotic and Percocet for pain. She had compression fracture. She is given the lumbosacral and dorsal belt and will be discharged today. She will go home. cc: Juan Olea MD
[2016-05-19] MEDS: VITAMIN D PO SCH (09:29)
[2016-05-19] MEDS: CALTRATE 600 PO SCH (09:29)
[2016-05-19] MEDS: KLOR-CON PO SCH (09:30)
[2016-05-19] MEDS: KEPPRA PO SCH (09:30)
[2016-05-19] MEDS: COZAAR PO SCH (09:30)
[2016-05-19] MEDS: CATAPRES PO SCH (09:30)
[2016-05-19] MEDS: PLAVIX PO SCH (09:30)
[2016-05-19] MEDS: BYSTOLIC PO SCH (09:30)
[2016-05-19] MEDS: LYRICA PO SCH (09:30)
[2016-05-19] MEDS: FORTICAL NAS SCH (10:32)
--- NOTE | 2016-05-19 13:30 | CONSULTATION ---
DATE OF CONSULTATION: 05/16/2016 ADMITTING PHYSICIAN: Juan Olea MD CONSULTING PHYSICIAN: Stan Umana MD CHIEF COMPLAINT: Back pain. HISTORY OF PRESENT ILLNESS: Mrs. Quesada is a 65-year-old white female who has experienced back pain since a seizure-like episode on May 12, 2016. She denies any recent injuries or other associated injuries with this event. Radiographic evaluation of the lumbar spine suggests a compression fracture of the 4th thoracic vertebra. PRIMARY CARE PROVIDER: Juan Olea MD ALLERGIES: 1. Nonsteroidal anti-inflammatories. 2. ASA 3. Altace. PAST MEDICAL HISTORY: 1. Hypertension. 2. Cerebrovascular disease. 3. History of poliomyelitis. 4. Osteoarthritis. 5. Degenerative disk disease. 6. Irritable bowel syndrome. 7. Chronic obstructive pulmonary disorder. SURGICAL HISTORY: 1. Cholecystectomy. 2. Hysterectomy. 3. Low back surgery. 4. Nailing of the left tibia. SOCIAL HISTORY: The patient is nonsmoker. HOME MEDICATIONS: 1. Apresoline 10 mg 3 times a day. 2. Potassium 10 mEq by mouth 3 times a day. 3. Lasix 40 mg by mouth daily. 4. Plavix 75 mg daily. 5. Lyrica 75 mg by mouth twice daily. 6. Soma 350 mg by mouth at bedtime as necessary. 7. Hyzaar 50/12.5, one tablet daily. 8. Catapres 0.1 mg by mouth 3 times a day. 9. Bystolic 10 mg by mouth daily. REVIEW OF SYSTEMS: HEENT: The patient has a history of cerebrovascular disease and experienced a cerebrovascular accident, and ischemic attacks. Her major event was in 1999. Cardiovascular: The patient has a history of hypertension, which is recalcitrant to management. No known history of coronary artery disease or valvular heart disease. Denies chest pain, pressure, or other anginal equivalents. Pulmonary: The patient is a nonsmoker. She does have a history of chronic obstructive pulmonary disorder. Gastrointestinal: She is treated for irritable bowel syndrome and she has recently has had diarrhea. Genitourinary: No recent kidney or bladder infection or dysfunction. Neurological: She has a history of recurrent posterior reversible encephalopathy, which is thought to be secondary to her hypertension. Musculoskeletal: She is here today for back pain. She has a history of osteoarthritis, degenerative disk disease, and a history of poliomyelitis. PHYSICAL EXAMINATION: General Appearance: The patient is resting comfortably in bed. She is articulate and able answer all questions fully. She has family at bedside. HEENT: Head is normocephalic, atraumatic. Pupils are equal, round, react to light. Nares are patent. Throat without exudate. Heart: Regular rate and rhythm. No murmurs, gallops, or rubs. Lungs: Clear to auscultation bilaterally. Gastrointestinal: Abdomen is round. Bowel sounds are present. It is nontender. Genitourinary: Not examined. Neurological: She discerns soft touch in the lower extremity. Gross motor function is intact. Musculoskeletal: No gross deformity, edema, or ecchymosis is noted. She does have point tenderness over the mid-thoracic spine. IMPRESSION: T4 compression fracture. PLAN: We recommend nonoperative management and bracing, as well as physical therapy. She can weight bear as tolerated. We will follow her up in the office. Thank you for including us in the care of Mrs. Quesada. We will continue to follow as necessary. If you need any additional assistance, please do not hesitate to ask. Dictated by OBI Waters for Stan Umana MD cc: OBI Waters MD Amit V. Vora, MD [id number]
--- NOTE | 2016-05-19 22:22 | DISCHARGE SUMMARY ---
ADMISSION DATE: 05/12/2016 DISCHARGE DATE: 05/19/2016 HISTORY OF PRESENT ILLNESS: Ms. Dipak madison, who is a 65-year-old white female, who was brought to the emergency room in the state of confusion. Her blood pressure was high. During the emergency room stay, she had a grand mal type of seizure. She had a thorough workup for the seizure, including the CT scan and MRI. The brain MRI had shown 20% posterior reversible encephalopathy syndrome. The findings are severely diffuse hyperintensity throughout the white matter of both hemispheres, some cortical hyperintensity on the flair, particularly in the posterior hemispheres. Chest x-ray revealed presence of bilateral atelectasis, which had improved to some extent. X-ray of the thoracic spine, done on 05/15, revealed a new compression fracture of T4. The lumbar spine x-ray revealed osteoporosis with compression fracture of T11, and compression fracture of the upper L3, of uncertain age, however, we did a bone scan, which revealed that the compression fracture of L3 was also acute to subacute in nature. Electroencephalogram revealed diffuse encephalopathy, and nonspecific absence of epileptiform waves, did not rule out the seizure disorder. Her lab data was nonsignificant, except for hypokalemia. Potassium had gone down to 2.5 at times. She had a neurological consultation by Dr. Roman, and later on a consultation with orthopedic surgeon. COURSE IN THE HOSPITAL: She was initially treated with IV Keppra, antibiotics were started, as it was thought she may have aspirated and had some atelectasis. Imipenem substitute, as well as, vancomycin. Meropenem and vancomycin were started and continued for 7 days. General condition started getting better after about 3 to 4 days. However, she has a lot of pain, which was treated symptomatically. A lumbar belt is given now to her. She is placed on Keppra, as well as, Percocet and Keflex now, and discharged on these 3 prescriptions. She is going to continue her blood pressure medicines, as well as, potassium tablets. General condition is stable at the present time. I will see her in the office in about 7 days, and then we will decide if she does prefer to go in the car to her home, and she refused to go to rehab for rehabilitation. FINAL DIAGNOSES: 1. Uncontrolled hypertension, with hypertensive encephalopathy. 2. Possible seizure disorder. 3. Severe osteoporosis with multiple compression fractures, which could be secondary from trauma that she sustained during the seizure episode. 4. She had uncontrolled hypertension. 5. Hypokalemia. cc: Juan Olea MD
== END 2016-05-19 12:40 | disposition home or self-care (01) ==
LOC: EDBD → ED 05:06 → EDIPHOLD 08:28 → 3N 10:01 → EDIPHOLD 10:06 → ICU 16:30 → 3S 05-15 07:27
PROVIDERS: ADMIT Internal Medicine; ATTEND Internal Medicine

== ENCOUNTER 2016-05-21 19:32 | Inpatient (IN) ==
[2016-05-21] MEDS ORDERED: ZOFRAN IV ONE (20:07)
[2016-05-21] MEDS ORDERED: MORPHINE IV ONE (20:07)
[2016-05-21] MEDS ORDERED: NS 1,000 ML IV ONE (20:07)
--- NOTE | 2016-05-21 20:26 | PROVIDER DOCUMENTATION ---
HPI-Abdominal Pain/GI Problem - General Chief Complaint: Nausea/Vomiting Stated Complaint: FALL/BACK INJURY, VOMITING Time Seen by Provider: 05/21/16 20:06 Source: patient, old records Allergies/Adverse Reactions: Patient Allergies Allergy/AdvReac Type Severity Reaction Status Date / Time NSAIDS (Non-Steroidal Allergy Severe ANGIOEDEMA Verified 05/21/16 19:49 Anti-Inflamma aspirin Allergy ANGIOEDEMA Verified 05/21/16 19:49 ramipril [From Altace] Allergy COUGH Verified 05/21/16 19:49 Home Medications: Home Medication List Medication Instructions Recorded Confirmed Last Taken Type Losartan/Hydrochlorothiazide 1 dose PO DAILY 05/12/16 05/21/16 05/11/16 09:00 History [Hyzaar 50-12.5 Tablet] 1 DOSE Hydralazine [Apresoline] 10 mg PO TID 05/18/16 05/21/16 05/11/16 History Carisoprodol [Soma] 350 mg PO HS PRN PRN #0 tablet 05/19/16 05/21/16 Unknown Rx Cholecalciferol (Vit D3) [Vitamin 5,000 unit PO DAILY capsule 05/19/16 Unknown Rx D] Clopidogrel [Plavix] 75 mg PO DAILY tablet 05/19/16 05/21/16 Unknown Rx Furosemide [Lasix] 40 mg PO DAILY tablet 05/19/16 05/21/16 Unknown Rx Levetiracetam [Keppra] 500 mg PO BID tablet 05/19/16 05/21/16 Unknown Rx Nebivolol [Bystolic] 10 mg PO DAILY tablet 05/19/16 05/21/16 Unknown Rx Oxycodone/APAP 5 mg/325 mg 1 each PO Q6H PRN PRN #0 tablet 05/19/16 05/21/16 Unknown Rx [Percocet-5] Potassium Chloride E.r. [Klor-Con] 10 meq PO TID tablet 05/19/16 05/21/16 Unknown Rx Pregabalin [Lyrica] 75 mg PO BID capsule 05/19/16 05/21/16 Unknown Rx - History of Present Illness-ABD Nature of Presenting Problems: This pt, who was d/c from the hospital 2 days ago following an episode of new onset seizures causing a fall and thoracic spine compression fx, presents today c complaints weakness c n/v. She reports that this morning she began to vomiting and is now dry heaving. She states that she is very nauseated and the dry heaving is causing her considerable pain in her back. She denies any fever. No change in BM. She is urinating well. On her d/c summary there was mention of possibly placing the pt in a rehab facility if she was not able to tolerate her care at home. Abdominal Pain Onset Location: reports: generalized abdomen Pain Radiation: reports: back Quality of Pain: reports: sharp, stabbing Severity in ED: reports: moderate (in back due to wretching) Onset/Duration: reports: this morning Timing: reports: still present Associated Symptoms: reports: back/neck pain, nausea, vomiting Last BM: 24 hours ago Dark Stools Present?: reports: none noticed Rectal Bleeding: reports: none Rectal Pain: reports: none Emesis Description: reports: none Bruising or Bleeding Gums?: No Similar Symptoms Previously?: Yes Recently seen or treated by another doctor?: Yes Review of Systems - Adult - REVIEW OF SYSTEMS - ADULT Constitutional: reports: anthonyque. denies: chills, fever Eyes: reports: no symptoms reported. denies: discharge, dry eyes Ears, Nose, Mouth & Throat: reports: no symptoms reported. denies: ear discharge, ear pain Cardiovascular: reports: no symptoms reported. denies: chest pain, edema Respiratory: reports: no symptoms reported. denies: chronic cough, cough Gastrointestinal: reports: abdominal pain, nausea, vomiting. denies: diarrhea, difficulty swallowing, rectal bleeding Genitourinary: reports: no symptoms reported. denies: dysuria, discharge Musculoskeletal: reports: see HPI, back pain. denies: frequent leg cramps, joint pain Integumentary: reports: no symptoms reported. denies: hives, hair loss Neurological: reports: no symptoms reported. denies: ataxia, dizziness/vertigo Psychiatric: reports: no symptoms reported. denies: anxiety, anti-depressant use Endocrine: reports: no symptoms reported Hematologic/Lymphatic: reports: no symptoms reported Allergic/Immunologic: reports: no symptoms reported All Other Systems: Reviewed and Negative Past History - Adult - PAST MEDICAL HISTORY-ADULT Review of Records: reports: Old Records Reviewed, Nursing Assessment Review, Medications Reviewed, Social history reviewed & non-contributory. Major Childhood Illnesses: reports: denies history Cardiovascular: reports: HTN Respiratory: reports: denies history Gastrointestinal: reports: denies history Obstetrical/Gynecological: reports: denies history Genitourinary: reports: denies history Musculoskeletal: reports: neck/back injury, spinal fracture Neurological: reports: CVA Endocrine/Immune: reports: denies history Other Conditions: reports: denies history - IMMUNIZATION STATUS Childhood Immunizations: See Nurse Assessment Flu Vaccine: See Nurse Assessment Physical Exam-General - PHYSICAL EXAM-ADULT Initial Vital Signs Reviewed: Yes - CONSTITUTIONAL General Appearance: alert, mild distress, anxious. negative: lethargic, slow to respond - EYES Eyes: PERRL/EOMI, pink conjunctivae. negative: pale conjunctivae - HEAD, EARS, NOSE, MOUTH & THROAT HENMT: normocephalic/atraumatic, moist mucous membranes, normal ENT inspection, TMs normal, pharynx normal. negative: pharyngeal erythema, TM abnormal, TM obscurred by cerumen - NECK Neck: supple, normal inspection - RESPIRATORY Respiratory: chest non-tender, lungs clear, normal breath sounds, no pleuratic chest pain, no respiratory distress, no accessory muscle use. negative: respiratory distress, decreased breath sounds, accessory muscle use, crackles, rales, rhonchi, stridor, wheezing - CARDIOVASCULAR Cardiovascular: normal peripheral pulses, regular rate, rhythm - GASTROINTESTINAL (ABDOMEN) Abdominal Exam: normal bowel sounds, non tender, soft, no organomegaly, no pulsatile mass. negative: abdominal bruit, abnormal bowel sounds, distended, guarding, rigid, rebound, tenderness - LYMPHATIC Lymphatic: no adenopathy - MUSCULOSKELETAL Back Exam: no CVA tenderness, vertebral tenderness (low thoracic, lumbar) Extremity: normal range of motion, non-tender - SKIN Integumentary: normal turgor, warm/dry, pallor. negative: cyanosis, diaphoresis - NEUROLOGIC Neurologic: grossly normal, no motor/sensory deficits. negative: facial droop, focal weakness, motor weakness, sensory deficit - PSYCHIATRIC Psych/Mental Status: normal mood/affect, normal thought content, normal thought process, oriented x 3 Progress - PLAN OF CARE/RESULTS Progress/Plan/Lab Results: Vital Signs - 8 hr 05/21/16 19:36 Temperature 98.4 F Pulse Rate 69 Blood Pressure 166/106 O2 Sat by Pulse Oximetry 96 Orders Category Date Time Status Saline Loc NOW Care 05/21/16 20:07 Active NPO Diet 05/21/16 20:20 Active FLAT/UPRIGHT ABD/1 VIEW CHEST [RAD] Stat Exams 05/21/16 20:07 Ordered AMYLASE [CHEM] Stat Lab 05/21/16 20:07 Uncollected CBC WITH ELECTRONIC DIFF [HEME] Stat Lab 05/21/16 20:07 Uncollected COMPREHENSIVE METABOLIC PANEL [CHEM] Stat Lab 05/21/16 20:07 Uncollected INFLUENZA SCREEN A/B Stat Lab 05/21/16 20:07 Uncollected LIPASE [CHEM] Stat Lab 05/21/16 20:07 Uncollected URINALYSIS W/POSS RFLX CULT [URINALYSIS] Stat Lab 05/21/16 20:07 Uncollected 0.9% Sodium Chloride Inj [Ns] 1,000 ml Med 05/21/16 20:07 Active IV 999 mls/hr Morphine Med 05/21/16 20:07 Discontinued 4 mg IV NOW ONE Ondansetron [Zofran] Med 05/21/16 20:07 Discontinued 4 mg IV NOW ONE EKG [EKG] Stat Ther 05/21/16 20:07 Ordered Reviewed labs, radiology with Dr. Rebolledo, agrees with plan of care, admission for hypokalemia, ALOC, N/V Result Diagrams: 05/21/16 20:14 05/21/16 20:14 - REASSESSMENT Reassessment #1 Time Reassessed: 21:29 Status: unchanged Reassessment Comment: Pt continues to vomit and scream due to pain Reassessment #2 Time Reassessed: 00:02 Status: worsening (pt acutely confused, actively vomiting, will medicate for nausea/admit. pt cannot follow commands, just repeadetly states "help me" unable to assess cranial nerves. no facial droop, PEERLA. at bedside reports pt had an episode similiar to this last year, diagnosed with malignant hypertension. Dr. Rebolledo notified of pt status, will admit to hospiatlist.) - CONSULTS/PCP/HOSPITALIST Notification #1 *Consult/PCP/Hospitalist*: Dr. Peter Time Discussed: 23:55 Reason/Comments: hypokalemia, ALOC, nausea/vomiting Consult Disposition: Will see in ED, Admit - CHANGE OF SHIFT REPORT (ED Provider) Report Given and Care Transferred to:: LIAN Lagunas Time of Transfer: 21:29 Items Pending: Labs, XRAY Results, Pain Control Comment: Continues to have vomiting and pain but is stable at present. Departure - Departure Time of Disposition Decision: 23:55 DIAGNOSIS: Altered level of consciousness, Hypokalemia Nausea & vomiting Qualifiers: Vomiting type: unspecified Vomiting Intractability: intractable Qualified Code( s): R11.2 - Nausea with vomiting, unspecified Disposition: ADMITTED INPATIENT 09 Certified Medical Emergency: Emergent Condition: Stable Referrals and Follow-Ups: Juan Olea MD [Primary Care Provider] - Attestation - Physician/ BIB Attestation Patient care was provided by Advanced Practice Provider:: Yes Advanced Practice Provider:: Jack Donato Advanced Practice Provider documentation review:: The Mid-level provider documentation, treatment plan and medical decision making was reviewed by the physician who agrees with all treatment and medical decision making by the MLP.
[2016-05-21] MEDS ORDERED: ZOFRAN ODT PO ONE (20:28)
[2016-05-21] MEDS ORDERED: PHENERGAN IM ONE (20:29)
[2016-05-21] MEDS ORDERED: DILAUDID IM ONE (20:29)
[2016-05-21] MEDS ORDERED: PHENERGAN ONE (20:30)
[2016-05-21] MEDS ORDERED: DILAUDID ONE (20:30)
[2016-05-21 20:51] LABS: MANUAL DIFF NEEDED? NO
[2016-05-21 20:51] LABS: URINE CULTURE NEEDED? NO; URINE MICRO REVIEW NEEDED? NO; URINE SOURCE CLEAN CATCH
[2016-05-21 20:56] LABS: BASO% 0.6 % (0.0-0.8); HEMATOCRIT 40.6 % (37.0-47.0); HEMOGLOBIN 14.6 g/dL (12.0-16.0); LYMPH# 0.71 X1000 (1.2-3.4); LYMPH% 13.8 % (20.5-51.1); MCH 30.7 PG (27-31); MCV 85.3 FL (81-99); MONO# 0.63 X1000 (0.11-0.59); MONO% 12.3 % (1.7-9.3); MPV 9.4 FL (7.4-10.4); NEUT% 73.3 % (42.2-75.2); PLT 199 X1000 (130-400); RBC 4.76 XMIL (4.2-5.4)
[2016-05-21 20:58] LABS: BILIRUBIN URINE NEGATIVE (NEGATIVE); BLOOD URINE NEGATIVE (NEGATIVE); COLOR YELLOW; GLUCOSE URINE NEGATIVE (NEGATIVE); LEUKOCYTES URINE NEGATIVE (NEGATIVE); NITRITE URINE NEGATIVE (NEGATIVE); PROTEIN URINE 200 mg/dL (NEGATIVE); SP GRAVITY URINE 1.016; TURBIDITY URINE CLEAR (CLEAR); UROBILINOGEN URINE NORMAL (NORMAL)
[2016-05-21 20:59] LABS: UR EPITHELIAL CELLS <10 /HPF (<10); URINE BACTERIA NEGATIVE /HPF; URINE RBC <10 /HPF (<10); URINE WBC <10 /HPF (<10)
[2016-05-21 21:16] LABS: AGAP 19; ALBUMIN 3.6 g/dL (3.5-5.0); ALKALINE PHOSPHATASE 128 U/L (32-104); AMYLASE 28 U/L (20-200); BUN 7 mg/dL (8-22); CALCIUM 8.6 mg/dL (8.8-10.2); CHLORIDE 90 mmol/L (98-107); COSMO 282; GOT 24 U/L (10-30); GPT 27 U/L (10-36); LIPASE 12 U/L (13-60); POTASSIUM 2.6 mmol/L (3.5-5.1); SODIUM 142 mmol/L (136-145); TCO2 33 mmol/L (25-35); TOTAL BILIRUBIN 0.93 mg/dL (0.20-1.00); TOTAL PROTEIN 6.3 g/dL (6.3-8.3)
[2016-05-21] MEDS ORDERED: NS + KCL 20 MEQ 1,000 ML IV SCH (21:24)
[2016-05-21] MEDS ORDERED: APRESOLINE IV ONE (22:56)
[2016-05-22] MEDS ORDERED: ZOFRAN IV ONE (00:01)
[2016-05-22] MEDS: CARDENE 20 MG/D5W 20 MG/200 ML PIGGYBACK IV SCH ×6 (00:39→06:56)
[2016-05-22] MEDS ORDERED: MORPHINE IV PRN (01:33)
[2016-05-22] MEDS: PROTONIX IV SCH (01:33)
[2016-05-22] MEDS ORDERED: POTASSIUM CHLORIDE 60 MEQ in NS 500 ML IV ONE (01:33)
[2016-05-22] MEDS: NS 1,000 ML IV SCH ×2 (02:36→16:14)
[2016-05-22] MEDS: ATIVAN IV PRN ×2 (02:37→06:43)
[2016-05-22] MEDS: LOVENOX SUBQ SCH (02:37)
[2016-05-22] MEDS: KEPPRA 750 MG in NS 100 ML IV SCH ×2 (02:37→18:04)
[2016-05-22] MEDS ORDERED: STERILE WATER INJ. INJ ONE (03:22)
[2016-05-22] MEDS ORDERED: GEODON IM ONE (03:22)
[2016-05-22] MEDS ORDERED: ATIVAN IV ONE (03:51)
[2016-05-22 04:17] LABS: ALLEN TEST YES; BE 8.8 mmoll (-3.0-3.0); BLOOD TYPE ARTERIAL; DRAW SITE R BRACHIAL; METHB 1.5 % (0.0-1.5); O2(CT) 20.2 mL/dL (15.0-23.0); PCO2(98.6) 35 mmHg (35-45); PO2(98.6) 92 mmHg (60-100); SAMPLE BLOOD; SAO2 99.5 % (95.0-100.0)
[2016-05-22 04:18] LABS: MODALITY NRB; pH(98.6) 7.56 (7.35-7.45)
--- NOTE | 2016-05-22 05:36 | EKG Report ---
Test Performed on : 05/21/2016 9:35:08 PM Test Reason : AMS Blood Pressure : / mmHG Vent. Rate : 066 BPM Atrial Rate : 066 BPM P-R Int : 126 ms QRS Dur : 094 ms QT Int : 522 ms P-R-T Axes : 065 001 038 degrees QTc Int : 547 ms Normal sinus rhythm. Left ventricular hypertrophy with repolarization abnormality Prolonged QT Abnormal ECG When compared with ECG of 12-MAY-2016 06:55, Left bundle branch block is no longer present Unconfirmed Result
--- NOTE | 2016-05-22 06:06 | HISTORY AND PHYSICAL ---
PRIMARY CARE PHYSICIAN: Dr. Juan Smith. CHIEF COMPLAINT: Nausea, vomiting and generalized weakness. HISTORY OF PRESENT ILLNESS: This is a 65-year-old female, with past medical history of new onset seizure, and also history of CVA, who was recently discharged from the hospital 2 days ago because, as we mentioned before, a new onset seizure. Also, had a fall with a thoracic spine compression fracture that happened after. This time, the patient reports that today she started feeling nauseated, and she had 3 episodes of vomiting today, and also she is complaining of moderate to severe back pain. She denies any fever or chills. Here in the ER, the blood pressure was high, and the blood pressure recorded here at almost 2000 hours was 166, but she had an episode of altered mental status and we checked the blood pressure and it was 210/111, and actually upon my examination the patient's blood pressure was 245/115. Even before proceeding with the interview of the patient, I informed immediately the nurse to start Cardene drip on this patient, because I think this could be a hypertensive emergency that needs to be treated immediately. The patient is going to be admitted for further evaluation and treatment. PAST MEDICAL HISTORY: 1. Uncontrolled hypertension. 2. History of CVA. 3. History of poliomyelitis. PAST SURGICAL HISTORY: 1. Laparoscopic cholecystectomy. 2. Hysterectomy. 3. Back surgery. 4. Surgery of the left leg. SOCIAL HISTORY: As per family, she denies drinking alcohol, smoking tobacco, or using illicit drugs. REVIEW OF SYSTEMS: Not possible to obtain because of the mental status of the patient right now. DISCHARGE PHYSICAL EXAMINATION: vital signs: T 98.4, heart rate 74, respiratory rate 17, blood pressure 245/115, O2 saturation 98% on room air. General: This is a 65-year- old female lying in bed, not able to answer questions, just keep saying help me, help me, in apparently no acute distress, confused. HEENT: Head is normocephalic, atraumatic. Anicteric sclerae and pale conjunctivae. Mucous membranes moist. Neck: Supple. No JVD noted. No carotid bruits. No lymphadenopathy. No thyromegaly. cardiovascular: S1, S2 heard. No murmurs, gallops, or rubs. Regular rate and rhythm. Respiratory: Clear bilaterally to auscultation. No work of breathing or using accessory muscles. Abdomen: Soft, nontender to palpation. Abdomen is distended, but there are no signs of peritoneal irritation. Bowel sounds present. No organomegaly. Extremities: No clubbing, cyanosis, or edema. Peripheral pulses present in both legs. Neurological: The patient is restless, moves 4 extremities. Not possible to perform a proper neurological examination. LABORATORY DATA: CBC is unremarkable, and BMP shows a potassium of 2.66. ASSESSMENT AND PLAN: 1. Uncontrolled hypertension. 2. Severe hypokalemia. 3. Encephalopathy. PLAN: 1. The patient is going to be admitted to the hospital because of the mental status, most likely related to hypertensive emergency. At this time, we are going to send this patient to the intensive care unit, and start Cardene drip. The patient was not able to take her medications today because of nausea and vomiting. We are going to hold off her blood pressure med until she is able to start taking them. 2. Also for severe hypokalemia, we are going to replete potassium accordingly. Because she is not able to take her medications for seizures, we are going to start Keppra IV 750 mg q.12 hours. 3. For physical deconditioning when patient is medically stable, we will consider the option to send him to a rehab facility versus alf. 4. Further recommendations to follow according to the clinical situation of the patient. 5. The patient will be seen by Dr. Smith, tomorrow morning, who was going to resume her care. cc: MD Ortiz Jasmine MD MTDD
[2016-05-22 06:44] LABS: MANUAL DIFF NEEDED? NO
[2016-05-22 06:45] LABS: URINE CULTURE NEEDED? NO; URINE MICRO REVIEW NEEDED? NO; URINE SOURCE CATH
[2016-05-22 06:50] LABS: BILIRUBIN URINE NEGATIVE (NEGATIVE); BLOOD URINE TRACE (NEGATIVE); COLOR YELLOW; GLUCOSE URINE TRACE mg/dL (NEGATIVE); LEUKOCYTES URINE NEGATIVE (NEGATIVE); NITRITE URINE NEGATIVE (NEGATIVE); PH URINE 7.5; PROTEIN URINE 50 mg/dL (NEGATIVE); SP GRAVITY URINE 1.009; TURBIDITY URINE CLEAR (CLEAR); UROBILINOGEN URINE NORMAL (NORMAL)
[2016-05-22 06:51] LABS: UR EPITHELIAL CELLS <10 /HPF (<10); URINE BACTERIA NEGATIVE /HPF; URINE RBC <10 /HPF (<10); URINE WBC <10 /HPF (<10)
[2016-05-22] MEDS ORDERED: NS 0 ML ONE (07:18)
[2016-05-22 07:20] LABS: AGAP 17; BUN 6 mg/dL (8-22); CALCIUM 7.8 mg/dL (8.8-10.2); CHLORIDE 92 mmol/L (98-107); COSMO 280; POTASSIUM 2.8 mmol/L (3.5-5.1); SODIUM 139 mmol/L (136-145); TCO2 30 mmol/L (25-35)
[2016-05-22 07:36] LABS: BASO% 0.2 % (0.0-0.8); HEMATOCRIT 38.2 % (37.0-47.0); HEMOGLOBIN 13.6 g/dL (12.0-16.0); IMM GRAN# 0.02 X1000 (0.0-0.04); IMM GRAN% 0.4 % (0.0-0.5); LYMPH# 0.31 X1000 (1.2-3.4); LYMPH% 6.2 % (20.5-51.1); MCH 30.7 PG (27-31); MCHC 35.6 g/dL (33-37); MCV 86.2 FL (81-99); MONO# 0.42 X1000 (0.11-0.59); MONO% 8.3 % (1.7-9.3); MPV 9.7 FL (7.4-10.4); NEUT% 84.9 % (42.2-75.2); PLT 142 X1000 (130-400); RBC 4.43 XMIL (4.2-5.4)
--- NOTE | 2016-05-22 07:46 | Diag Imaging Result Document ---
PROCEDURE NAME: FLAT/UPRIGHT ABD/1 VIEW CHEST - 05/21/2016 FRONTAL CHEST X-RAY AND 2 VIEWS OF THE ABDOMEN, 05/21/2016: COMPARISON: 05/18/2016. FINDINGS: Lung volumes are severely low, even lower than previously. There is worsening, ill- defined infiltrate or atelectasis at the right mid lung and lung bases. There are surgical clips in the right upper quadrant and right lower quadrant. No bowel obstruction or free air. IMPRESSION: No definite acute disease.
--- NOTE | 2016-05-22 08:24 | Diag Imaging Result Document ---
PROCEDURE NAME: HEAD W/O CONTRAST - 05/21/2016 CT OF THE HEAD WITHOUT CONTRAST: FINDINGS: There is an 8-mm lacune in the inferior left basal ganglia. This has not changed since 05/12/2016. There is no evidence of bleed or abnormal extra-axial fluid collection and there are no masses. Otherwise, there has been no significant change. IMPRESSION: Chronic microvascular changes. No evidence of acute disease.
[2016-05-22] MEDS: PLAVIX PO SCH (09:00)
[2016-05-22 09:28] LABS: ALLEN TEST YES; BE 17.6 mmoll (-3.0-3.0); BLOOD TYPE ARTERIAL; DRAW SITE R RADIAL; METHB 1.2 % (0.0-1.5); O2(CT) 16.4 mL/dL (15.0-23.0); PCO2(98.6) 47 mmHg (35-45); PO2(98.6) 64 mmHg (60-100); SAMPLE BLOOD; SAO2 97.3 % (95.0-100.0); THB 12.5 g/dL (11.5-17.4)
[2016-05-22 09:29] LABS: MODALITY CANNULA
[2016-05-22 09:30] LABS: pH(98.6) 7.56 (7.35-7.45)
--- NOTE | 2016-05-22 13:59 | ECHO REPORT ---
ORDER DATE: 05/22/2016 INTERPRETING PHYSICIAN: Dr. Conteh PROCEDURE: Two-dimensional echocardiogram. CLINICAL INDICATIONS: Yskeg[age]ddl[age]-old female with hypertensive emergency, history of stroke, poliomyelitis. M-MODE MEASUREMENTS: Right ventricle: 2.2 cm. Left ventricle end diastole: 4.0 cm. Left ventricle end systole: 2.6 cm. Posterior wall: 0.8 cm. Interventricular septum: 0.9 cm. Left atrium: 4.1 cm. Aortic root: 2.5 cm. SUMMARY OF 2-DIMENSIONAL IMAGING: The left ventricular function is normal. Ejection fraction is estimated at 63%. There is no wall motion abnormality. The right ventricle appears to be normal. The atria appear to be normal. There is no pericardial effusion, masses, or thrombus. The inferior vena cava is not dilated. Mitral valve looks normal with trace regurgitation. Pulse wave Doppler of mitral inflow is normal. Tissue Doppler of septal and lateral mitral anulus averages 6-1/2 cm. The tricuspid valve shows mild degree of regurgitation. Pulmonary pressure is estimated at 54 mmHg. Pulmonic valve is unremarkable. Aortic valve looks normal. Color flow mapping within normal range. There is no evidence of masses or thrombus. SUMMARY: This study showed: 1. Normal left ventricular systolic function with borderline concentric left ventricular hypertrophy. The left ventricular wall thickness is estimated at 1.3 cm. 2. Normal valvular structures. 3. No diastolic dysfunction. 4. Mild elevation of pulmonary pressure estimated at 54 mmHg. Clinical correlation recommended. cc: MD Ortiz Atkins MD Amit V. Vora, MD
--- NOTE | 2016-05-22 14:27 | EKG Report ---
Test Performed on : 05/22/2016 11:19:51 AM Test Reason : ED. Not ordered in [place] Blood Pressure : / mmHG Vent. Rate : 108 BPM Atrial Rate : 108 BPM P-R Int : 122 ms QRS Dur : 124 ms QT Int : 398 ms P-R-T Axes : 074 -10 133 degrees QTc Int : 533 ms Sinus tachycardia. Left bundle branch block Abnormal ECG When compared with ECG of 21-MAY-2016 21:35, Vent. rate has increased BY 42 BPM Left bundle branch block is now present Unconfirmed Result
--- NOTE | 2016-05-22 15:02 | CONSULTATION ---
DATE OF CONSULTATION: 05/22/2016 IMPRESSION: 1. Encephalopathy. 2. Poorly controlled hypertension. 3. History of seizure disorder. 4. History of cerebrovascular accident in the past. RECOMMENDATION: 1. Agree with current management with intravenous Cardene drip. Her blood pressure appears to be coming under control quickly, which may facilitate putting her back on her usual medications in the next 24 hours. 2. Conservative cardiovascular management overall. HISTORY: This 65-year-old, white female, with past history of new onset seizure, prior cerebrovascular accident and hypertension, was admitted to emergency room today after she presented with several episodes of vomiting with complaint of moderate to severe back pain. Patient's mental status became altered and her blood pressure was markedly elevated. For this reason, she has started on intravenous Cardene drip, admitted to the intensive care unit. Blood pressure now much better controlled. The patient is awake, but does not communicate, although she moves all 4 extremities well. She does not give any significant history. PAST MEDICAL HISTORY: 1. Hypertension. 2. Previous cerebrovascular accident. 3. Recent seizures. 4. Chronic back disorder. 5. History of polio. PAST SURGICAL HISTORY: Includes laparoscopic cholecystectomy, hysterectomy, unspecified back surgery. Unspecified surgery of the left leg. MEDICATIONS: Prior to admission as listed. SOCIAL HISTORY: Per family, she does not drink alcohol nor smoke cigarettes. FAMILY HISTORY: Negative for premature coronary disease. REVIEW OF SYSTEMS: Not obtainable because of patient's altered mental status. PHYSICAL EXAM: General: This was an overweight, older, white female, who is awake but noncommunicative, in no distress. Vital Signs: Blood pressure 145/80, heart rate 96 and regular. HEENT Exam: Extraocular movements intact. Mucous membranes moist. Neck: Supple. No JV distention. There are no carotid bruits. Chest: Clear to auscultation. Cardiac: Reveals a regular rate and rhythm without appreciable murmur or gallop. Abdomen: Soft, nontender. Bowel sounds are normal. Extremities: Without edema. Neurologic Exam: Reveals her to be somewhat drowsy, but easily awakened. She does not communicate. She moves all 4 extremities equally well. DIAGNOSTIC DATA: ECG demonstrates sinus rhythm, baseline artifact, and left bundle branch block. cc: MD Juan Perez MD
--- NOTE | 2016-05-22 20:05 | PROGRESS NOTE ---
DATE: 05/22/2016 SUBJECTIVE: Ms. Quesada Ms. Quesada is more alert now than in the morning. Her lungs reveal some congestion at the bases. I am going to put her on IV Cefepime, change the morphine to q.4 hours p.r.n., and cover her with oral blood pressure medications. We will continue to watch her in ICU. She possibly has pneumonia at the right lower lobe. A CT scan of the brain was negative. cc: Juan Olea MD
[2016-05-22] MEDS: CATAPRES PO SCH (21:14)
[2016-05-22] MEDS: ZOFRAN IV PRN (21:25)
[2016-05-22] MEDS: PERCOCET-5 PO PRN (21:25)
[2016-05-22] MEDS: MAXIPIME 1 GM/NS 1 GM/50 ML IVPB IV SCH (21:30)
[2016-05-22] MEDS: MORPHINE IV PRN (21:52)
[2016-05-22] MEDS ORDERED: MAGNESIUM SULFATE 2 GM/S.W.I. 2 GM/50 ML IVPB IV ONE (22:37)
[2016-05-22] MEDS: POTASSIUM CHLORIDE 20 MEQ/SWI 20 MEQ/100 ML IVPB IV SCH (23:08)
[2016-05-23] MEDS: POTASSIUM CHLORIDE 20 MEQ/SWI 20 MEQ/100 ML IVPB IV SCH ×3 (01:00→05:01)
[2016-05-23] MEDS: LOVENOX SUBQ SCH (05:05)
[2016-05-23] MEDS: KEPPRA 750 MG in NS 100 ML IV SCH ×2 (05:05→16:46)
[2016-05-23] MEDS: PROTONIX IV SCH (05:05)
[2016-05-23] MEDS: NS 1,000 ML IV SCH ×2 (05:05→16:46)
--- NOTE | 2016-05-23 06:00 | EKG Report ---
Test Performed on : 05/22/2016 9:05:15 PM Test Reason : No ORder in [facility] Blood Pressure : / mmHG Vent. Rate : 094 BPM Atrial Rate : 094 BPM P-R Int : 132 ms QRS Dur : 098 ms QT Int : 394 ms P-R-T Axes : 066 022 087 degrees QTc Int : 492 ms Normal sinus rhythm. Left ventricular hypertrophy Nonspecific ST and T wave abnormality Prolonged QT Abnormal ECG When compared with ECG of 22-MAY-2016 11:19, Left bundle branch block is no longer present (rate related QRS widening now resolved) Confirmed by Kofi YOUNG, Juan Antonio Roe ([id number]) on 05/23/2016 5:39:26 PM
[2016-05-23] MEDS: MAXIPIME 1 GM/NS 1 GM/50 ML IVPB IV SCH ×2 (08:05→18:14)
[2016-05-23] MEDS: BYSTOLIC PO SCH (09:43)
[2016-05-23] MEDS: COZAAR PO SCH (09:44)
[2016-05-23] MEDS: CATAPRES PO SCH ×2 (09:44→21:46)
[2016-05-23] MEDS: PLAVIX PO SCH (09:44)
--- NOTE | 2016-05-23 10:21 | PROGRESS NOTE ---
DATE: 05/23/2016 SUBJECTIVE: Ms. Quesada is doing better. OBJECTIVE: She is alert her vital signs are stable. Urine output is somewhat low; however, we will check on her potassium today before we order more Lasix as she is getting IV fluids. She is not volume depleted. We will manage to transfer her to [facility] if a bed is available today. cc: Juan Olea MD
[2016-05-23 10:53] LABS: AGAP 11; BUN 10 mg/dL (8-22); CALCIUM 7.1 mg/dL (8.8-10.2); CHLORIDE 102 mmol/L (98-107); COSMO 283; POTASSIUM 3.9 mmol/L (3.5-5.1); SODIUM 143 mmol/L (136-145); TCO2 30 mmol/L (25-35)
[2016-05-23] MEDS: MORPHINE IV PRN ×3 (11:20→20:26)
[2016-05-23] MEDS: ZOFRAN IV PRN ×3 (11:23→20:22)
[2016-05-23] MEDS: PERCOCET-5 PO PRN (13:54)
[2016-05-23] MEDS: APRESOLINE IV PRN ×2 (13:54→20:23)
--- NOTE | 2016-05-23 16:47 | PROGRESS NOTE ---
DATE: 05/23/2016 CARDIOLOGY FOLLOWUP NOTE: SUBJECTIVE: Patient now off intravenous nicardipine with stable blood pressure. Mentation has improved. She denies any chest discomfort or dyspnea. OBJECTIVE: Vital Signs: Blood pressure 129/78. Neck: There is no significant jugular venous distention. Chest: Clear to auscultation. Cardiac Exam: Reveals a regular rate and rhythm without appreciable murmur or gallop. There is no evidence of peripheral edema. IMPRESSION: 1. Recent poorly controlled hypertension. Blood pressure now better controlled. 2. Previous cerebrovascular accident. 3. Encephalopathy, improved. 4. History of seizure disorder. RECOMMENDATIONS: 1. Agree with plans for transfer to telemetry. 2. Continue current antihypertensive regimen. 3. We will see further on an as needed basis. cc: MD Juan Perez MD
[2016-05-24] MEDS: MORPHINE IV PRN ×6 (00:38→23:18)
[2016-05-24] MEDS: ZOFRAN IV PRN ×6 (00:39→23:18)
[2016-05-24] MEDS: APRESOLINE IV PRN (03:53)
[2016-05-24] MEDS: PROTONIX IV SCH (04:32)
[2016-05-24] MEDS: SODIUM CHLORIDE 0.9% INJ SCH (04:32)
[2016-05-24] MEDS: KEPPRA 750 MG in NS 100 ML IV SCH (04:32)
[2016-05-24 06:08] LABS: AGAP 10; BUN 9 mg/dL (8-22); CHLORIDE 105 mmol/L (98-107); COSMO 281; POTASSIUM 3.5 mmol/L (3.5-5.1); SODIUM 142 mmol/L (136-145); TCO2 27 mmol/L (25-35)
[2016-05-24] MEDS: MAXIPIME 1 GM/NS 1 GM/50 ML IVPB IV SCH ×2 (06:11→17:43)
[2016-05-24] MEDS: COZAAR PO SCH (08:31)
[2016-05-24] MEDS: CATAPRES PO SCH ×2 (08:31→20:40)
[2016-05-24] MEDS: BYSTOLIC PO SCH (08:31)
[2016-05-24] MEDS: PLAVIX PO SCH (08:32)
[2016-05-24] MEDS: NS 1,000 ML IV SCH (10:05)
[2016-05-24] MEDS ORDERED: SALINE LOCK IV FLUID XX ONE (11:11)
--- NOTE | 2016-05-24 11:45 | PROGRESS NOTE ---
DATE: 05/24/2016 SUBJECTIVE: I am seeing the patient in place of Dr. Olea. Patient says she is feeling much better. She is having a little dizziness if she looks abruptly to the left but otherwise feels much better. OBJECTIVE: Afebrile. Pulse 68, respirations 21, BP 156/55, O2 saturation on room air 97-99%. CV: RRR. Lungs: CTA. HEENT: PERRL. EOMI. Neurologic: Cranial nerves 2 through 12 intact. Extremities: No calf tenderness, cords or edema. LABS: Sodium 142, potassium 3.5, chloride 105, CO2 27, BUN 9, creatinine 0.6, glucose 87, calcium 8.0. White count 5, hemoglobin 13.6, these are from 05/22. ASSESSMENT: 1. Encephalopathy much improved. 2. Previous history of CVA with 8 mm lacune in the inferior left basal ganglia. 3. Hypertensive emergency, resolved. 4. Profound hypokalemia, resolved. 5. History of seizure disorder. 6. History of chronic pain associated with fairly recent surgeries. PLAN: Resume previous home dose of Keppra and discontinue the IV Keppra. Continue Cozaar 100 mg daily, Bystolic 10 mg daily and Catapres 0.2 mg p.o. b.i.d. We will resume her home dose of Apresoline she had taken in the past and monitor blood pressure. Particularly monitor the dizziness and try to work back to oral medications as we can, trying to leave her off of her pain medications as possible. cc: MD Juan Daugherty MD
[2016-05-24] MEDS: APRESOLINE PO SCH ×2 (12:41→18:29)
[2016-05-24] MEDS: KEPPRA PO SCH (20:40)
[2016-05-24] MEDS: PERCOCET-5 PO PRN (20:43)
[2016-05-25] MEDS: PERCOCET-5 PO PRN ×2 (04:22→16:14)
[2016-05-25] MEDS: MAXIPIME 1 GM/NS 1 GM/50 ML IVPB IV SCH ×2 (05:55→18:16)
[2016-05-25] MEDS: PROTONIX PO SCH ×2 (05:55→05:59)
[2016-05-25] MEDS: MORPHINE IV PRN ×4 (06:23→20:02)
[2016-05-25] MEDS: ZOFRAN IV PRN ×4 (06:23→20:04)
[2016-05-25] MEDS: APRESOLINE PO SCH ×2 (09:01→22:47)
[2016-05-25] MEDS: BYSTOLIC PO SCH (09:01)
[2016-05-25] MEDS: COZAAR PO SCH (09:02)
[2016-05-25] MEDS: KEPPRA PO SCH ×2 (09:02→20:03)
[2016-05-25] MEDS: PLAVIX PO SCH (09:02)
[2016-05-25] MEDS: CATAPRES PO SCH ×2 (09:02→20:03)
[2016-05-25] MEDS: VITAMIN D PO SCH (09:02)
[2016-05-25] MEDS ORDERED: APRESOLINE PO SCH (09:43)
--- NOTE | 2016-05-25 10:14 | PROGRESS NOTE ---
DATE: 05/25/2016 SUBJECTIVE: Patient says dizzy feeling is some better. Still has it mildly. She is feeling overall better. OBJECTIVE: Vital Signs: Afebrile, pulse 62, respirations 21, blood pressure 199/69, O2 saturation room air 98-99%. Neurologic: No changes. No distinct abnormality. CV: RRR. Lungs: CTA. Abdomen: Nontender. Last bowel movement yesterday in the ICU. Extremities: No calf tenderness, cords, or edema. ASSESSMENT: 1. Encephalopathy, resolved. 2. History of previous cerebrovascular accident with 8 mm lacune in the inferior left basal ganglia noted on imaging. 3. Hypertensive emergency with uncontrolled hypertension, improving. 4. Profound hypokalemia, resolved. 5. Seizure disorder. 6. History of chronic pain with recent surgeries. PLAN: She is now back on her oral Keppra. Continue Cozaar at 100 mg daily and Bystolic at 10 mg daily. We will bump the Catapres to 0.3 mg b.i.d. and increase hydralazine started yesterday from 10-25 mg t.i.d. Continue to monitor blood pressure. Increase her activity level as we can. Continue Plavix. cc: MD Juan Daugherty MD
[2016-05-25] MEDS: APRESOLINE IV PRN (20:03)
[2016-05-25] MEDS: SODIUM CHLORIDE 0.9% INJ PRN (21:15)
[2016-05-25] MEDS: PHENERGAN IV PRN (21:15)
[2016-05-26] MEDS: PHENERGAN IV PRN ×6 (00:53→22:03)
[2016-05-26] MEDS: SODIUM CHLORIDE 0.9% INJ PRN ×2 (00:53→17:56)
[2016-05-26] MEDS: MORPHINE IV PRN ×4 (00:53→13:22)
[2016-05-26] MEDS: PROTONIX PO SCH (06:19)
[2016-05-26] MEDS: MAXIPIME 1 GM/NS 1 GM/50 ML IVPB IV SCH ×2 (06:19→17:20)
[2016-05-26] MEDS ORDERED: ANTIVERT PO ONE (09:01)
[2016-05-26] MEDS: VITAMIN D PO SCH (09:18)
[2016-05-26] MEDS: BYSTOLIC PO SCH (09:19)
[2016-05-26] MEDS: APRESOLINE PO SCH ×3 (09:20→20:34)
[2016-05-26] MEDS: KEPPRA PO SCH ×2 (09:20→20:34)
[2016-05-26] MEDS: CATAPRES PO SCH ×2 (09:20→20:34)
[2016-05-26] MEDS: COZAAR PO SCH (09:21)
[2016-05-26] MEDS: PLAVIX PO SCH (09:21)
[2016-05-26] MEDS: PERCOCET-5 PO PRN ×3 (11:18→20:34)
[2016-05-26] MEDS: APRESOLINE IV PRN ×2 (11:20→20:35)
[2016-05-26] MEDS: NORVASC PO SCH (20:35)
[2016-05-26] MEDS: SODIUM CHLORIDE 0.9% INJ SCH (22:03)
--- NOTE | 2016-05-26 22:06 | PROGRESS NOTE ---
DATE: 05/26/2016 Ms. Quesada is doing better. She is somewhat dizzy when she turns her head. It could be inner ear problems. She is getting physical therapy. We will be repeating a chest x-ray to see about the progress of the atelectasis. Her general condition is stable. We will continue with the current management on her and meclizine p.r.n. She has agreed to go to rehabilitation. cc: Juan Olea MD
[2016-05-26] MEDS ORDERED: MORPHINE IV ONE (23:30)
[2016-05-27] MEDS: APRESOLINE IV PRN (00:02)
[2016-05-27] MEDS: ATIVAN IV PRN ×4 (01:19→22:37)
[2016-05-27] MEDS: MAXIPIME 1 GM/NS 1 GM/50 ML IVPB IV SCH ×2 (06:05→22:37)
[2016-05-27] MEDS: PROTONIX PO SCH (06:10)
[2016-05-27 06:37] LABS: AGAP 14; BUN 6 mg/dL (8-22); CALCIUM 8.2 mg/dL (8.8-10.2); CHLORIDE 102 mmol/L (98-107); COSMO 281; POTASSIUM 2.8 mmol/L (3.5-5.1); SODIUM 142 mmol/L (136-145); TCO2 26 mmol/L (25-35)
[2016-05-27] MEDS: PERCOCET-5 PO PRN ×3 (07:23→22:38)
[2016-05-27] MEDS: KEPPRA PO SCH ×2 (09:11→22:39)
[2016-05-27] MEDS: APRESOLINE PO SCH ×3 (09:11→22:38)
[2016-05-27] MEDS: BYSTOLIC PO SCH (09:11)
[2016-05-27] MEDS: CATAPRES PO SCH ×2 (09:12→22:39)
[2016-05-27] MEDS: COZAAR PO SCH (09:12)
[2016-05-27] MEDS: NORVASC PO SCH (09:12)
[2016-05-27] MEDS: PLAVIX PO SCH (09:12)
[2016-05-27] MEDS: VITAMIN D PO SCH (09:13)
--- NOTE | 2016-05-27 09:13 | Diag Imaging Result Document ---
PROCEDURE NAME: CHEST-2 VIEWS - 05/27/2016 TWO VIEWS OF THE CHEST: FINDINGS: There is blunting of the left posterior costophrenic sulcus. The heart size and pulmonary vascularity are within normal limits. The lungs are better expanded than on 05/21/2016. There is minimal atelectasis in the left costophrenic angle. IMPRESSION: Small left pleural effusion.
[2016-05-27] MEDS: KLOR-CON PO SCH ×2 (09:17→22:39)
--- NOTE | 2016-05-27 09:39 | PROGRESS NOTE ---
DATE: 05/27/2016 SUBJECTIVE: Ms. Quesada is feeling better. Her physical exam is unchanged. She had a chest x-ray done this morning; the results are not back. We are going to remove the catheter. We will continue the physical therapy. Her potassium was 2.8 this morning, again low without her having any diuretics. She just gets some normal saline IV. We will discontinue that and we will supplement her potassium and get a nephrology consult for recurrent hypokalemia. -5 cc: Juan Olea MD
[2016-05-27] MEDS ORDERED: MAGNESIUM SULFATE 2 GM/S.W.I. 2 GM/50 ML IVPB IV ONE (11:52)
--- NOTE | 2016-05-27 15:25 | CONSULTATION ---
DATE OF CONSULTATION: 05/27/2016 REASON FOR ADMISSION: Nausea, vomiting, generalized weakness, hypertensive. REASON FOR CONSULTATION: Chronic hypokalemia. CONSULTING PHYSICIAN: Dr. Olea. HISTORY OF PRESENT ILLNESS: This is a 65-year-old female who has a past medical history of recent CVA along with new onset seizure and recent thoracic spine compression fracture secondary to fall. The patient had just been discharged from the hospital less than a week ago prior to admission secondary to new onset seizure. She was having severe back pain, nausea, vomiting and generalized weakness and presented to the emergency room. In the ER, her blood pressure was noted to be greater than 200/100 and on recheck was 245/115 and the patient was immediately begun on a Cardene drip and admitted to the intensive care unit for further workup and treatment. Over the course of the hospitalization, her blood pressure has been better controlled with multiple medication regimen. She was found to be quite hypokalemic with an initial potassium of 2.6 on admission. She has received repletion. The highest potassium has gotten during this hospitalization is 3.9. Her diuretics have been held for almost a week now and potassium is still running around 2.8. Magnesium during this time has also been low at 1.3 noted on the 5th. She received repletion. Recheck today her magnesium was again low. The patient's blood sugars have been controlled. She has had no overt vomiting or diarrhea. She has been off diuretics and has actually been in mild negative territory fluid art now for a couple of days. We have been asked to see her for her continued hypokalemia after discontinuation of her diuretics. When I see the patient today she is able to give me some history although she is drowsy and does fall asleep during the conversation. PAST MEDICAL HISTORY: 1. Hypertension that has been somewhat [id number]. Of note, she did take diuretics as part of that regimen. 2. History of CVA. 3. History of poliomyelitis. 4. History of new onset seizure. 5. Congestive heart failure. 6. History of a TIA. 7. History of pneumonia. 8. She has had a closed fracture distal radius and ulna previously. ALLERGIES: Nonsteroidals, aspirin, ramipril. CURRENT MEDICATIONS: Norvasc, Maxipime, vitamin D, Catapres, Plavix, Apresoline , Keppra, Ativan, Cozaar, Bystolic, Zofran, Percocet, Protonix, potassium chloride, Phenergan, sodium chloride, IV flush. Has received magnesium sulfate. FAMILY HISTORY: Noncontributory. 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 No ETOH, tobacco or illicit drug use per the family notes. REVIEW OF SYSTEMS: As noted above. PHYSICAL EXAMINATION: Vital Signs: Temperature 98.8 degrees, pulse 78, respiratory rate 18, blood pressure 174/66. Intake 580 mL. Output 1 L. Again she has been in negative territory now for the last couple of days in this range. General: This is a middle-aged/ elderly female resting in bed. She is quite drowsy. Will answer questions and drifts off back to sleep. She is appropriate when she is awake. HEENT: Normocephalic atraumatic. Conjunctivae are pale. Oral mucosa is moist. Neck: Supple. There is no JVD. Cardiovascular: Regular rate and rhythm. There is no murmur or gallop appreciated. Pulmonary: She has equal excursion. She is clear bilaterally. There is no increased work of breathing. She is on room air. Abdomen: Soft, round, positive bowel sounds. : She is now voiding. Extremities: She has trace to 1+ pretibial edema left greater than right. Skin: Pale, warm and dry. No rash or lesion. Neurologic: She is drowsy but nonfocal otherwise. LAB DATA: Sodium 142, potassium 2.8, chloride 102, CO2 26, BUN 6, creatinine 0.5. Magnesium 1.3. She had a chest x-ray with no acute process with improved atelectasis. ASSESSMENT AND PLAN: 1. Hypokalemia in the setting of discontinued on diuretics and in the setting of continued hypertension. The patient has no fluid loss from the standpoint of diuretics or current vomiting or diarrhea that would attest for the fact of her hypokalemia. She had has continued to have hypertension in this setting. As such, we will go ahead and order urine creatinine and urine potassium for a ratio. Also we will check a cortisol level, random aldosterone level and a plasma renin activity for other causes of her hypokalemia. We did recheck her magnesium. It was again 1.3 and we have already ordered repletion for that. She has potassium repletion ordered currently. We will make no changes until we have these other labs back and then further orders to follow. 2. Hypertension. She is on a multidrug regimen and blood pressure is although still above target is much better controlled than initial presentation. During conversation when the patient was awake she stated that her blood pressure has been extremely hard to control and that she was on a thiazide diuretic along with a loop diuretic secondary to her blood pressure and not for swelling. 3. Fluid volume. She does have some trace pretibial edema. She has chronic edema on the left lower extremity secondary to her history of poliomyelitis. She has trace to 1+ pretibial edema to the right and has a dependent edema to the hips. She does not appear fluid overloaded at this time. We will continue to monitor closely. Thank you for the consult. Data reviewed, discussed with Daria Cheney on 05/27/16. I agree with the above assessment and plan of care. rg Dictated by LIAN Wei for Hardeep Shen MD cc: MD Juan Nixon MD MTDD
[2016-05-27] MEDS ORDERED: SODIUM CHLORIDE 0.9% 10 ML ONE (22:29)
[2016-05-27] MEDS: PHENERGAN IV PRN (22:37)
[2016-05-28 00:03] LABS: UR CREAT RANDOM 27.9 mg/dL (11-20)
[2016-05-28] MEDS ORDERED: SODIUM CHLORIDE 0.9% 10 ML ONE (03:55)
[2016-05-28] MEDS: ATIVAN IV PRN ×4 (04:02→21:20)
[2016-05-28] MEDS: PERCOCET-5 PO PRN ×3 (04:03→20:18)
[2016-05-28] MEDS: PHENERGAN IV PRN ×4 (04:03→18:48)
[2016-05-28] MEDS: PROTONIX PO SCH (06:09)
[2016-05-28] MEDS: KEPPRA PO SCH ×2 (08:29→20:20)
[2016-05-28] MEDS: MAXIPIME 1 GM/NS 1 GM/50 ML IVPB IV SCH ×2 (08:29→20:21)
[2016-05-28] MEDS: KLOR-CON PO SCH ×2 (08:29→20:20)
[2016-05-28] MEDS: APRESOLINE PO SCH ×3 (08:29→20:19)
[2016-05-28] MEDS: PLAVIX PO SCH (08:30)
[2016-05-28] MEDS: NORVASC PO SCH (08:30)
[2016-05-28] MEDS: CATAPRES PO SCH ×2 (08:30→20:20)
[2016-05-28] MEDS: VITAMIN D PO SCH (08:30)
[2016-05-28] MEDS: COZAAR PO SCH (08:30)
[2016-05-28] MEDS: BYSTOLIC PO SCH (08:30)
[2016-05-28] MEDS: SODIUM CHLORIDE 0.9% INJ PRN (08:31)
--- NOTE | 2016-05-28 08:44 | PROGRESS NOTE ---
DATE: 05/28/2016 Ms. Quesada is feeling better. Her vital signs are stable except for the elevated blood pressure which the diastolic is staying around 160-180. She is on multiple medications. We are trying to get the diuretics off. She is on potassium supplement. We will order electrolyte studies again on her tomorrow. Her urinary potassium was negative. We did the lupus studies for ANDERSON and it was negative. She was seen by the nurse practitioner for nephrology. Recommendations are followed. We will continue with the current management. -2 cc: Juan Olea MD
[2016-05-28 08:49] LABS: AGAP 12; ALBUMIN 2.9 g/dL (3.5-5.0); BUN 6 mg/dL (8-22); CALCIUM 8.4 mg/dL (8.8-10.2); CHLORIDE 102 mmol/L (98-107); COSMO 281; POTASSIUM 3.3 mmol/L (3.5-5.1); SODIUM 142 mmol/L (136-145); TCO2 28 mmol/L (25-35)
[2016-05-28] MEDS: MAG-OX PO SCH ×2 (08:52→20:20)
--- NOTE | 2016-05-28 10:25 | PROGRESS NOTE ---
DATE: 05/28/2016 SUBJECTIVE: The patient is resting in bed. She is awake and alert this morning. She is in no acute distress. OBJECTIVE: Vital Signs: Temperature 98.3 degrees, pulse 76, respiratory rate 16 , blood pressure 160/76. Intake 580 mL. Output 2.2 L. PHYSICAL EXAMINATION: General: This is an elderly female, resting in bed. Awake and alert in no acute distress. HEENT: Normocephalic, atraumatic. Dentition excellent. Tongue midline. Conjunctivae pink. JOSHUA. Neck supple. Trachea in midline. No JVD. Cardiovascular: Regular rate and rhythm without murmur or gallop appreciated. Pulmonary: She has equal excursion. She is clear bilaterally. Abdomen is soft with positive bowel sounds. : Not inspected. She is voiding. Extremities: She has trace to 1+ pretibial edema. No clubbing or cyanosis. Integumentary: Skin is pale, warm and dry. LABORATORY DATA: Pending. ASSESSMENT AND PLAN: 1. Hypokalemia. She does have repletion ordered daily for her potassium. We are awaiting her cortisol, aldosterone, plasma, renin activity levels. Will add aldosterone. rg 2. Hypomagnesia. Recheck labs this morning. Replete if remains low. 3. Fluid volume. She is in negative territory overnight without diuretics. 4. New onset seizure activity followed by primary. Seen, data reviewed, discussed with Daria Cheney on 05/28/16. I agree with the above assessment and plan of care. rg Dictated by LIAN Wei for Hardeep Shen MD cc: MD Juan Nixon MD [facility]
[2016-05-28] MEDS: ALDACTONE PO SCH (13:01)
[2016-05-28] MEDS: ZOFRAN IV PRN (20:19)
[2016-05-29] MEDS: PHENERGAN IV PRN ×2 (00:01→14:17)
[2016-05-29] MEDS: SODIUM CHLORIDE 0.9% INJ SCH (00:02)
[2016-05-29] MEDS: APRESOLINE IV PRN (00:02)
[2016-05-29 05:47] LABS: AGAP 11; ALBUMIN 3.2 g/dL (3.5-5.0); BUN 6 mg/dL (8-22); CALCIUM 8.7 mg/dL (8.8-10.2); CHLORIDE 105 mmol/L (98-107); COSMO 285; SODIUM 144 mmol/L (136-145); TCO2 28 mmol/L (25-35)
[2016-05-29] MEDS: PERCOCET-5 PO PRN ×3 (06:16→20:49)
[2016-05-29] MEDS: ZOFRAN IV PRN (06:17)
[2016-05-29] MEDS: PROTONIX PO SCH (06:17)
--- NOTE | 2016-05-29 09:07 | PROGRESS NOTE ---
DATE: 05/29/2016 SUBJECTIVE: Ms. Quesada is doing better. OBJECTIVE/LABS: Her potassium is normal now with potassium supplementation. Her blood cultures are negative. Magnesium report is not back today. Yesterday, it was 1.7. Her urine magnesium level was 4.0. We have a cortisol level which is 5.2, and that is slightly lower for a.m. levels. Aldosterone level has not been back. ASSESSMENT AND PLAN: We will wait to tomorrow and see. In the meantime, she is getting the physical therapy. Will continue with the current management. cc: Juan Olea MD
[2016-05-29] MEDS: MAXIPIME 1 GM/NS 1 GM/50 ML IVPB IV SCH ×2 (09:15→20:50)
[2016-05-29] MEDS: PLAVIX PO SCH (09:15)
[2016-05-29] MEDS: VITAMIN D PO SCH (09:15)
[2016-05-29] MEDS: KLOR-CON PO SCH ×2 (09:15→20:49)
[2016-05-29] MEDS: ALDACTONE PO SCH (09:15)
[2016-05-29] MEDS: BYSTOLIC PO SCH (09:15)
[2016-05-29] MEDS: CATAPRES PO SCH ×2 (09:15→20:49)
[2016-05-29] MEDS: KEPPRA PO SCH ×2 (09:15→20:49)
[2016-05-29] MEDS: COZAAR PO SCH (09:15)
[2016-05-29] MEDS: NORVASC PO SCH (09:15)
[2016-05-29] MEDS: APRESOLINE PO SCH ×3 (09:15→20:51)
[2016-05-29] MEDS: MAG-OX PO SCH ×2 (09:15→20:49)
--- NOTE | 2016-05-29 15:43 | PROGRESS NOTE ---
DATE: 05/29/2016 SUBJECTIVE: Patient resting in bed. She has had no complaints this morning. OBJECTIVE: Vital signs: Temperature 97.7 degrees, pulse 67, respiratory rate 18, blood pressure 156/65. Intake 1.7 L. Output 600 mL. General: Elderly female, resting in bed. No acute distress. Awake and alert. HEENT: Normocephalic, atraumatic. Oral mucosa is moist. JOSHUA. Conjunctivae pink. Neck: Supple. Her trachea midline without JVD. Cardiovascular: Regular rate and rhythm. No murmur or gallop appreciated. Pulmonary: She has equal excursion. She is clear bilaterally without increased work of breathing. She is on O2 supplementation via nasal cannula. Abdomen: Soft, with positive bowel sounds. : Not inspected. She is voiding. Extremities: She has trace to 1+ pretibial edema. No clubbing or cyanosis. She has been ambulatory to the bathroom with the assistance of a walker. Integumentary: Skin is pale, warm, and dry. She has areas of ecchymoses noted bilateral upper extremities. LAB DATA: Sodium 144, potassium 4.0, CO2 28, BUN 6, creatinine 0.5, albumin 3.2. ASSESSMENT AND PLAN: 1. Hypokalemia. We had spironolactone started yesterday. The patient's potassium today is in target. Continue to monitor. 2. Hypomagnesemia. I have no new labs. 3. Blood pressure is improved. 4. Fluid volume. She is actually in positive territory today but she has no worsening edema or increased work of breathing. Seen, data reviewed, discussed with Daria Cheney on 05/29/16. I agree with the above assessment and plan of care. rg Dictated by LIAN Wei for Hardeep Shen MD cc: MD Juan Nixon MD [facility]
[2016-05-29] MEDS: ATIVAN IV PRN ×2 (18:43→20:50)
[2016-05-30] MEDS: PERCOCET-5 PO PRN ×2 (03:36→13:06)
[2016-05-30] MEDS: PHENERGAN IV PRN ×2 (03:37→13:06)
[2016-05-30] MEDS: ATIVAN IV PRN (05:01)
[2016-05-30 05:50] LABS: AGAP 14; ALBUMIN 3.1 g/dL (3.5-5.0); BUN 7 mg/dL (8-22); CALCIUM 8.5 mg/dL (8.8-10.2); CHLORIDE 103 mmol/L (98-107); COSMO 278; POTASSIUM 4.3 mmol/L (3.5-5.1); SODIUM 140 mmol/L (136-145); TCO2 23 mmol/L (25-35)
[2016-05-30] MEDS: PROTONIX PO SCH (06:16)
[2016-05-30] MEDS: VITAMIN D PO SCH (08:42)
[2016-05-30] MEDS: KEPPRA PO SCH (08:42)
[2016-05-30] MEDS: MAXIPIME 1 GM/NS 1 GM/50 ML IVPB IV SCH (08:42)
[2016-05-30] MEDS: CATAPRES PO SCH (08:43)
[2016-05-30] MEDS: NORVASC PO SCH (08:43)
[2016-05-30] MEDS: BYSTOLIC PO SCH (08:43)
[2016-05-30] MEDS: PLAVIX PO SCH (08:43)
[2016-05-30] MEDS: MAG-OX PO SCH (08:43)
[2016-05-30] MEDS: KLOR-CON PO SCH (08:43)
[2016-05-30] MEDS: APRESOLINE PO SCH (08:44)
[2016-05-30] MEDS: ALDACTONE PO SCH (08:44)
[2016-05-30] MEDS: COZAAR PO SCH (08:44)
--- NOTE | 2016-05-30 11:32 | DISCHARGE SUMMARY ---
ADMISSION DATE: 05/22/2016 DISCHARGE DATE: 05/30/2016 HISTORY OF PRESENT ILLNESS: Ms. Quesada, who is a 65-year-old white female, was admitted for acute mental status change and uncontrolled hypertension. She also had vomited. LABORATORY DATA: Her laboratory data in the hospital, a repeat CT scan of the brain revealed chronic microvascular changes. No evidence of acute disease noted. Her abdominal x-ray did not show any acute abnormality. Chest x-ray done on 05/27/2016 revealed a very small left-sided effusion. Otherwise, pulmonary vascularity was within normal limits. Lungs are better expanded. There was minimal atelectasis in the left costophrenic angle. The lab data, her potassium had gone down to 2.8 again; it was as low as 2.6 this time on 05/21/2016, and it went up slowly, and final potassium is 4.3 this morning. The BUN is 7, creatinine is 0.7. Blood sugar was normal of 103. Renin activity and aldosterone levels were unremarkable. Renin activity was less than 0.6, and aldosterone level was also less than 4. It was negative for hyperaldosteronism or any renal involvement with elevation of renin. COURSE IN THE HOSPITAL: She was initially seen in the ER and kept in the emergency room and later on transferred to CICU. She had periods of hypokalemia, hypomagnesemia, and was transferred to CICU. Dr. Shen was consulted. Her general condition improved. The potassium is better. Repeat magnesium is now better; it went down to 1.7. We have given her magnesium oxide. We have also started spironolactone to prevent hypokalemia. [facility]. cc: Juan Olea MD
[2016-05-30 12:09] VITALS: BP 191/84
--- NOTE | 2016-05-30 13:57 | PROGRESS NOTE ---
DATE: 05/30/2016 SUBJECTIVE: She is feeling well today. She has plans for discharge. No shortness of breath or chest discomfort etc. OBJECTIVE: Vital Signs: Blood pressure 161/79, heart rate 70, respirations 20 and afebrile. Exam has no acute distress. No edema. LABORATORY DATA: Potassium 4.3. IMPRESSION: 1. Hypokalemia and hypomagnesemia. Improved. I agree with your plan for discharge. Would continue spironolactone. No change in dose. I would be glad to see her as an outpatient if you desire, but I have not scheduled followup. cc: MD Juan Nixon MD
[2016-05-31] MEDS ORDERED: MAG-OX PO SCH (09:00)
[2016-05-31] MEDS ORDERED: ALDACTONE PO SCH (09:00)
[2016-05-31] MEDS ORDERED: KLOR-CON PO SCH (09:00)
--- NOTE | 2016-06-05 08:29 | DISCHARGE SUMMARY ---
ADMISSION DATE: 05/22/2016 DISCHARGE DATE: 05/30/2016 DISCHARGE SUMMARY ADDENDUM: Ms. Quesada was admitted with mental status change. Her blood pressure was very high. It was 245/115 on admission. She required IV Cardene to bring the blood pressure down. She had been confused, and it appeared like she had hypertensive encephalopathy responsible for the condition in the emergency room that she came in with. cc: Juan Olea MD
== END 2016-05-30 13:18 ==
LOC: ED 19:32 → SUATTDRO 05-22 03:03 → EDIPHOLD 05-22 03:03 → ICU 05-22 11:03 → 3S 05-24 03:44
PROVIDERS: ADMIT Internal Medicine; ATTEND Internal Medicine

== ENCOUNTER 2019-04-08 14:47 | Inpatient (IN) ==
[2019-04-08] MEDS ORDERED: CALCIUM CHLORIDE SYRINGE IV ONE ×2 (15:14→16:05)
[2019-04-08] MEDS ORDERED: ATROPINE IV ONE (15:20)
[2019-04-08] MEDS ORDERED: ATROPINE SYRINGE IV ONE ×2 (15:20→16:01)
[2019-04-08 15:25] LABS: BASO# 0.01 X1000 (0.0-0.2); BASO% 0.2 % (0.0-0.8); HEMATOCRIT 38.5 % (37.0-47.0); HEMOGLOBIN 12.8 g/dL (12.0-16.0); LYMPH# 2.49 X1000 (1.2-3.4); LYMPH% 43.5 % (20.5-51.1); MCH 32.9 PG (27-31); MCHC 33.2 g/dL (33-37); MONO# 0.63 X1000 (0.11-0.59); MPV 10.9 FL (7.4-10.4); NEUT% 45.3 % (42.2-75.2); PLT 172 X1000 (130-400); RBC 3.89 XMIL (4.2-5.4); RDW 14.3 % (11.5-14.5); WBC 5.73 X1000 (4.8-10.8)
[2019-04-08] MEDS ORDERED: NS 1,000 ML ONE (15:31)
[2019-04-08] MEDS ORDERED: DOPAMINE 800 MG/D5W 800 MG/500 ML IV.SOLN IV SCH (15:31)
[2019-04-08] MEDS ORDERED: DOPAMINE 800 MG/D5W 800 MG/500 ML IV.SOLN ONE (15:31)
--- NOTE | 2019-04-08 15:33 | EKG Report ---
Test Performed on : 04/08/2019 3:10:10 PM Test Reason : bradycardia Blood Pressure : / mmHG Vent. Rate : 030 BPM Atrial Rate : 000 BPM P-R Int : 000 ms QRS Dur : 132 ms QT Int : 570 ms P-R-T Axes : 000 004 077 degrees QTc Int : 402 ms Idioventricular rhythm. Left bundle branch block Abnormal ECG When compared with ECG of 22-MAY-2016 21:05, Idioventricular rhythm. has replaced Sinus rhythm. Vent. rate has decreased BY 64 BPM Unconfirmed Result
[2019-04-08 15:34] LABS: INR 1.1; PROTIME 14.3 Seconds (11.0-16.0)
[2019-04-08 15:35] LABS: PTT 29.1 Seconds (22.3-41.8)
[2019-04-08] MEDS ORDERED: MORPHINE IV ONE ×2 (15:38→17:05)
[2019-04-08] MEDS ORDERED: MORPHINE ONE (15:45)
[2019-04-08] MEDS ORDERED: NS 1,000 ML IV ONE (15:55)
--- NOTE | 2019-04-08 16:01 | Diag Imaging Result Doc PS360 ---
EXAM: CHEST-1 VIEW 04/08/2019 HISTORY: DYSPNEA TECHNIQUE: AP portable semiupright at 1553 COMMENT: Considering differences in technique and inspiration there has been no significant change since 02/23/2019. IMPRESSION: No acute disease. Electronically signed by Eduardo Howell 04/08/2019 3:59 PM
[2019-04-08 16:14] LABS: ALB/GLOB RATIO 1.7; ALBUMIN 3.9 g/dL (3.5-5.0); CREATININE 2.5 mg/dL (0.5-0.9); POTASSIUM 7.4 mmol/L (3.5-5.1); TOTAL BILIRUBIN 0.6 mg/dL (0.20-1.00); TOTAL PROTEIN 6.2 g/dL (6.3-8.3)
[2019-04-08] MEDS ORDERED: SODIUM BICARBONATE 8.4% IV PUSH ONE ×2 (16:19→16:21)
[2019-04-08 16:23] LABS: ALLEN TEST YES; BE -15.3 mmoll (-3.0-3.0); BLOOD TYPE ARTERIAL; HCO3-(ACT) 12.9 mmoll (20.0-26.0); METHB 0.9 % (0.0-1.5); O2(CT) 17.7 mL/dL (15.0-23.0); PCO2(98.6) 24 mmHg (35-45); PO2(98.6) 84 mmHg (60-100); SAMPLE BLOOD; SAO2 97.6 % (95.0-100.0); THB 13.2 g/dL (11.5-17.4); pH(98.6) 7.24 (7.35-7.45)
[2019-04-08 16:24] LABS: MODALITY CANNULA
[2019-04-08] MEDS ORDERED: D50W SYRINGE IV ONE (16:29)
[2019-04-08] MEDS ORDERED: ALBUTEROL 0.5% INH CONC FOR HYPERKALEMIA INH ONE (16:30)
[2019-04-08] MEDS ORDERED: D50W SYRINGE ONE (16:32)
[2019-04-08] MEDS ORDERED: HUMULIN R IV ONE (16:34)
[2019-04-08] MEDS ORDERED: D5 1/2 NS 1,000 ML IV ONE (16:39)
--- NOTE | 2019-04-08 17:55 | PROVIDER DOCUMENTATION ---
This chart was entered by Keiry Steele Scribe, acting as scribe for Edmond Jacobson MD. HPI-Respiratory General - General Chief Complaint: Wheezing Stated Complaint: SOB Time Seen by Provider: 04/08/19 15:04 Source: patient, family, EMS Allergies/Adverse Reactions: Patient Allergies Allergy/AdvReac Type Severity Reaction Status Date / Time NSAIDS (Non-Steroidal Allergy Severe ANGIOEDEMA Verified 05/21/16 19:49 Anti-Inflamma aspirin Allergy ANGIOEDEMA Verified 05/21/16 19:49 ramipril [From Altace] Allergy COUGH Verified 05/21/16 19:49 Home Medications: Home Medication List Medication Instructions Recorded Confirmed Last Taken Type Nebivolol [Bystolic] 10 mg PO DAILY tablet 05/19/16 05/21/16 Unknown Rx Oxycodone/APAP 5 mg/325 mg 1 each PO Q6H PRN PRN #0 tablet 05/19/16 05/21/16 Unknown Rx [Percocet-5] Amlodipine [Norvasc] 5 mg PO DAILY tablet 05/30/16 Unknown Rx Cholecalciferol (Vit D3) [Vitamin 5,000 unit PO DAILY capsule 05/30/16 Unknown Rx D] Clonidine [Catapres] 0.3 mg PO BID tablet 05/30/16 Unknown Rx Clopidogrel [Plavix] 75 mg PO DAILY tablet 05/30/16 Unknown Rx Hydralazine [Apresoline] 25 mg PO TID@0900,1500,2100 tablet 05/30/16 Unknown Rx Levetiracetam [Keppra] 500 mg PO BID tablet 05/30/16 Unknown Rx Losartan [Cozaar] 100 mg PO DAILY tablet 05/30/16 Unknown Rx Magnesium Oxide [Mag-Ox] 400 mg PO BID tablet 05/30/16 Unknown Rx Nebivolol [Bystolic] 10 mg PO DAILY tablet 05/30/16 Unknown Rx Oxycodone/APAP 5 mg/325 mg 1.5 each PO Q6H PRN PRN #0 tablet 05/30/16 Unknown Rx [Percocet-5] Pantoprazole [Protonix] 40 mg PO DAILY@0700 tablet 05/30/16 Unknown Rx Potassium Chloride E.r. [Klor-Con] 10 meq PO DAILY tablet 05/30/16 Unknown Rx Spironolactone [Aldactone] 25 mg PO DAILY tablet 05/30/16 Unknown Rx - History of Present Illness-Resp Nature of Presenting Problem: 68 yowf presents to the ed via ems with c/o sob dizziness and diffuse numbness. pt sts she felt good this am and cleaned the house then sat down in her chair to rest. pt woke from a nap at 1230 feeling sob and dizziness. pt called 911 and once ems aos pt HR was noted to be in low 30's. pt geve pt a neb tx e nroute to ed for sob. pt denies any pain on exam and does state she takes potassium 3x daily. pt is anxious on exam and is at bedside Quality of Pain: reports: none Severity in ED: reports: moderate (sob and dizziness with bradycardia) Onset/Duration: reports: this afternoon (1230) Timing: reports: still present, constant Exposure: reports: unknown cause Cough Quality/Degree: reports: mild Episode Frequency: no prior episodes Current Respiratory Medication Therapy: Initiated see nurses note Modifying Factors: improves with: nothing Associated Symptoms: reports: dizziness, shortness of breath, wheezing, other (diffuse numbness). denies: chest pain/soreness Similar Symptoms Previously?: No Recently seen or treated by another doctor?: No Review of Systems - Adult - REVIEW OF SYSTEMS - ADULT Constitutional: denies: chills, fever Eyes: reports: no symptoms reported Ears, Nose, Mouth & Throat: reports: no symptoms reported Cardiovascular: denies: chest pain, palpitations, syncope Respiratory: reports: see HPI, shortness of breath, wheezing Gastrointestinal: denies: abdominal pain, hematemesis, diarrhea, nausea, rectal bleeding, vomiting Genitourinary: reports: no symptoms reported Musculoskeletal: denies: back pain, neck pain Integumentary: reports: no symptoms reported Neurological: reports: see HPI, dizziness/vertigo, numbness. denies: headache/migraines, syncope Psychiatric: reports: no symptoms reported Endocrine: reports: no symptoms reported Hematologic/Lymphatic: reports: no symptoms reported Allergic/Immunologic: reports: no symptoms reported All Other Systems: Reviewed and Negative Past History - Adult - PAST MEDICAL HISTORY-ADULT Review of Records: reports: Old Records Reviewed, Nursing Assessment Review, Medications Reviewed, Social history reviewed & non-contributory. Major Childhood Illnesses: reports: denies history Cardiovascular: reports: HTN, other (tachycardia) Respiratory: reports: denies history Gastrointestinal: reports: denies history Obstetrical/Gynecological: reports: denies history Genitourinary: reports: denies history Musculoskeletal: reports: neck/back injury, spinal fracture Neurological: reports: CVA Psychiatric: reports: denies history Endocrine/Immune: reports: denies history Other Conditions: reports: denies history - PRIOR SURGERIES/PROCEDURES Surgical/Procedure History: reports: orthopedic (extremity) - IMMUNIZATION STATUS Childhood Immunizations: See Nurse Assessment Flu Vaccine: See Nurse Assessment - SOCIAL HISTORY Smoking: denies Substance Use: denies Alcohol Use Frequency: never Living Situation: family Physical Exam-General - PHYSICAL EXAM-ADULT Initial Vital Signs Reviewed: Yes - CONSTITUTIONAL General Appearance: appears well, mild distress, obese, anxious - EYES Eyes: PERRL/EOMI, pink conjunctivae - HEAD, EARS, NOSE, MOUTH & THROAT HENMT: moist mucous membranes - NECK Neck: non-tender, full range of motion, supple, normal inspection - RESPIRATORY Respiratory: chest non-tender, wheezing - CARDIOVASCULAR Cardiovascular: normal peripheral pulses, bradycardia (29), other (decreased heart sounds) - CHEST (BREASTS) Chest/Breast: deferred - GASTROINTESTINAL (ABDOMEN) Abdominal Exam: normal bowel sounds, non tender, soft - GENITOURINARY Female Genitalia/Pelvic Exam: deferred Rectal Exam: deferred Hemoccult Exam: deferred - LYMPHATIC Lymphatic: no adenopathy - MUSCULOSKELETAL Back Exam: no CVA tenderness, no vertebral tenderness Extremity: normal range of motion, non-tender, normal inspection, other (brace noted on LLE) - SKIN Integumentary: normal color, normal turgor, warm/dry - NEUROLOGIC Neurologic: grossly normal - PSYCHIATRIC Psych/Mental Status: normal mood/affect, normal thought content, normal thought process, oriented x 3 Progress - PLAN OF CARE/RESULTS Progress/Plan/Lab Results: Vital Signs - 8 hr 04/08/19 14:55 04/08/19 15:40 04/08/19 15:52 Temperature 98.1 F Pulse Rate 29 L 87 72 Respiratory Rate 23 18 Blood Pressure 93/50 98/47 62/44 O2 Sat by Pulse Oximetry 97 92 L 04/08/19 16:08 04/08/19 16:16 04/08/19 16:18 Temperature Pulse Rate 94 H Respiratory Rate 25 H 26 H 27 H Blood Pressure 74/40 92/46 O2 Sat by Pulse Oximetry 96 91 L 04/08/19 16:23 04/08/19 16:26 04/08/19 16:36 Temperature Pulse Rate 75 72 76 Respiratory Rate 26 H 23 29 H Blood Pressure 103/40 106/42 105/53 O2 Sat by Pulse Oximetry 95 95 97 04/08/19 16:40 04/08/19 16:47 04/08/19 16:49 Temperature Pulse Rate 70 75 71 Respiratory Rate 24 24 26 H Blood Pressure 101/41 147/75 O2 Sat by Pulse Oximetry 98 95 04/08/19 17:05 04/08/19 17:06 04/08/19 17:21 Temperature Pulse Rate 98 H 85 94 H Respiratory Rate 22 25 H 23 Blood Pressure 107/48 185/162 90/52 O2 Sat by Pulse Oximetry 96 98 04/08/19 17:27 04/08/19 17:32 04/08/19 17:38 Temperature Pulse Rate 89 91 H 90 Respiratory Rate 20 19 22 Blood Pressure 106/67 97/49 110/48 O2 Sat by Pulse Oximetry 97 96 96 Laboratory Results - last 24 hr 04/08/19 04/08/19 04/08/19 15:15 15:15 15:15 WBC RBC Hgb Hct MCV MCH MCHC RDW Std Deviation Plt Count MPV Immature Gran % (Auto) Neut % (Auto) Lymph % (Auto) [place] % (Auto) Eos % (Auto) Baso % (Auto) Immature Gran # (Auto) Neut # (Auto) Lymph # (Auto) [place] # (Auto) Eos # (Auto) Baso # (Auto) PT INR PTT (Actin FS) Specimen Type Sample Site pH pCO2 pO2 HCO3 Base Excess Oxyhemoglobin ABG O2 Sat (Calculated) ABG O2 Saturation ABG Carboxyhemoglobin ABG Methemoglobin Ale[place]andro Test A-a O2 Difference Total Hemoglobin Lactate Liter Flow Blood Gas Modality FiO2 % Sodium 140 Potassium 7.4 H* Chloride 112 H Carbon Dioxide 11 L Anion Gap 17 BUN 63 H Creatinine 2.5 H Estimated GFR/1.73 m2 19 BUN/Creatinine Ratio 25 Glucose 156 H POC Glucose Calculated Osmolality 301 Calcium 9.0 Total Bilirubin 0.60 AST 72 H ALT 55 H Alkaline Phosphatase 107 H Creatine Kinase 103 Troponin T High Sens 26 [address] Owy-D-Ggroqlydnnc Pept 2078 H Total Protein 6.2 L Albumin 3.9 Globulin 2.3 Albumin/Globulin Ratio 1.7 04/08/19 04/08/19 04/08/19 15:15 15:15 15:17 WBC 5.73 RBC 3.89 L Hgb 12.8 Hct 38.5 MCV 99.0 MCH 32.9 H MCHC 33.2 RDW Std Deviation 14.3 Plt Count 172 MPV 10.9 H Immature Gran % (Auto) 0.0 Neut % (Auto) 45.3 Lymph % (Auto) 43.5 [place] % (Auto) 11.0 H Eos % (Auto) 0.0 Baso % (Auto) 0.2 Immature Gran # (Auto) 0.00 Neut # (Auto) 2.60 Lymph # (Auto) 2.49 [place] # (Auto) 0.63 H Eos # (Auto) 0.00 Baso # (Auto) 0.01 PT 14.3 INR 1.10 PTT (Actin FS) 29.1 Specimen Type Sample Site pH pCO2 pO2 HCO3 Base Excess Oxyhemoglobin ABG O2 Sat (Calculated) ABG O2 Saturation ABG Carboxyhemoglobin ABG Methemoglobin [place] Test A-a O2 Difference Total Hemoglobin Lactate Liter Flow Blood Gas Modality FiO2 % Sodium Potassium Chloride Carbon Dioxide Anion Gap BUN Creatinine Estimated GFR/1.73 m2 BUN/Creatinine Ratio Glucose POC Glucose 148 H Calculated Osmolality Calcium Total Bilirubin AST ALT Alkaline Phosphatase Creatine Kinase Troponin T High Sens Xfy-C-Sjwbkkocwoa Pept Total Protein Albumin Globulin Albumin/Globulin Ratio 04/08/19 16:14 WBC RBC Hgb Hct MCV MCH MCHC RDW Std Deviation Plt Count MPV Immature Gran % (Auto) Neut % (Auto) Lymph % (Auto) [place] % (Auto) Eos % (Auto) Baso % (Auto) Immature Gran # (Auto) Neut # (Auto) Lymph # (Auto) [place] # (Auto) Eos # (Auto) Baso # (Auto) PT INR PTT (Actin FS) Specimen Type ARTERIAL Sample Site R RADIAL pH 7.24 L pCO2 24 L pO2 84 HCO3 12.9 L Base Excess -15.3 L Oxyhemoglobin 95.0 ABG O2 Sat (Calculated) 17.7 ABG O2 Saturation 97.6 ABG Carboxyhemoglobin 1.80 ABG Methemoglobin 0.9 Ale[place]andro Test YES A-a O2 Difference 86.0 Total Hemoglobin 13.2 Lactate 1.60 Liter Flow 2.0 Blood Gas Modality CANNULA FiO2 % 28.0 Sodium Potassium Chloride Carbon Dioxide Anion Gap BUN Creatinine Estimated GFR/1.73 m2 BUN/Creatinine Ratio Glucose POC Glucose Calculated Osmolality Calcium Total Bilirubin AST ALT Alkaline Phosphatase Creatine Kinase Troponin T High Sens Ajw-N-Tchzbysqbme Pept Total Protein Albumin Globulin Albumin/Globulin Ratio Orders Category Date Time Status Admit - [facility] Routine AdmDCTranf 04/08/19 17:39 Active Cardiac Monitoring DIRECTED Care 04/08/19 15:15 Active Oxygen Therapy- ED Nursing DIRECTED Care 04/08/19 15:15 Active Saline Loc NOW Care 04/08/19 15:15 Active Vital Signs Order ROUTINE Care 04/08/19 17:39 Active Heart Healthy Diet Diet 04/08/19 17:40 Active CHEST-1 VIEW [RAD] Stat Exams 04/08/19 15:41 Completed ABG [RESP] Routine Lab 04/08/19 16:14 Completed BMP [BASIC METABOLIC PANEL] [CHEM] Stat Lab 04/08/19 17:23 Received CBC WITH ELECTRONIC DIFF [HEME] Stat Lab 04/08/19 15:15 Completed CK PROFILE [SP CHEM] Stat Lab 04/08/19 15:15 Completed COMPREHENSIVE METABOLIC PANEL [CHEM] Stat Lab 04/08/19 15:15 Completed PRO B-NATRIURETIC PEPTIDE Stat Lab 04/08/19 15:15 Completed PROTIME WITH INR [COAG] Stat Lab 04/08/19 15:15 Completed PTT [COAG] Stat Lab 04/08/19 15:15 Completed TROPONIN T HIGH SENSITIVITY Stat Lab 04/08/19 15:15 Completed TROPONIN T HIGH SENSITIVITY Stat Lab 04/08/19 17:23 Received 0.9% Sodium Chloride Inj [Ns] 1,000 ml Med 04/08/19 15:31 Discontinued .ROUTE As directed 0.9% Sodium Chloride Inj [Ns] 1,000 ml Med 04/08/19 15:55 Discontinued IV 999 mls/hr Albuterol 0.5% INH Conc [Albuterol 0.5% INH Conc For Med 04/08/19 16:30 Discontinued Hyperkalemia] 25 mg INH NOW ONE Atropine Syringe Med 04/08/19 15:20 Discontinued 1 mg IV NOW ONE Atropine Syringe Med 04/08/19 16:01 Discontinued 1 mg IV NOW ONE Calcium Chloride Syringe Med 04/08/19 15:14 Discontinued 1 gm IV NOW ONE Calcium Chloride Syringe Med 04/08/19 16:05 Discontinued 1 gm IV NOW ONE Dextrose 5%-0.45% NaCl Inj [D5 1/2 Ns] 1,000 ml Med 04/08/19 16:39 Active IV 100 mls/hr Dextrose 50% Syringe [D50w Syringe] Med 04/08/19 16:29 Discontinued 25 ml IV NOW ONE Dextrose 50% Syringe [D50w Syringe] Med 04/08/19 16:32 Discontinued 50 ml .ROUTE .STK-MED ONE Dopamine 800 mg/D5w Med 04/08/19 15:31 Discontinued 800 mg in 500 ml .ROUTE As directed Dopamine 800 mg/D5w Med 04/08/19 15:31 Active 800 mg in 500 ml IV As Directed mls/hr Insulin Human Regular [Humulin R] Med 04/08/19 16:34 Discontinued 5 unit IV NOW ONE Morphine Med 04/08/19 17:39 Active 2 mg IV Q2H PRN PRN Morphine Med 04/08/19 15:45 Discontinued 4 mg .ROUTE .STK-MED ONE Morphine Med 04/08/19 15:38 Discontinued 4 mg IV NOW ONE Morphine Med 04/08/19 17:05 Discontinued 4 mg IV NOW ONE Ondansetron [Zofran] Med 04/08/19 17:39 Active 4 mg IV Q4H PRN PRN Sodium Bicarbonate 8.4% Med 04/08/19 16:19 Discontinued 50 meq IV PUSH NOW ONE Sodium Bicarbonate 8.4% Med 04/08/19 16:21 Discontinued 50 meq IV PUSH NOW ONE Aerosol Treatments Routine Oth 04/08/19 16:30 Completed Aerosol Treatments Stat Oth 04/08/19 16:30 Completed CP/SOB/Palp >45 yrs of Age Stat Oth 04/08/19 15:15 Ordered Oxygen Device Routine Oth 04/08/19 17:39 Active EKG [EKG] Stat Ther 04/08/19 15:15 Draft Transfer/Admit Order [TRANSFER] Routine Transfer 04/08/19 17:[address] jacobson was at bedside with pt from [id number] [id number] except briefly stepped away to speak with transfer center [facility] to have pt sent [facility] has no beds at this time but when one is open pt will fly to [facility] Result Diagrams: 04/08/19 15:15 04/08/19 15:15 - REASSESSMENT Reassessment #1 Time Reassessed: 15:22 (pt was given atropine and calcium with dr at bedside. HR now at 72-75) Status: improving Reassessment #2 Time Reassessed: 16:31 (dr still at bedside with pt and given medications to help stablize the heart rate) Status: unchanged - EKG 1 Time of EKG reading by physician:: 15:10 EKG Read and Signed by:: Edmond Jacobson EKG Interpretation (*Must complete 3 of following elements*): Abnormal Rate: 30 Rhythm: Idioventricular rhythm [place]: normal QRS: LBB AL Interval: normal ST Wave: normal 2 Time of EKG reading by physician:: 16:56 EKG Read and Signed by:: Edmond Jacobson EKG Interpretation (*Must complete 3 of following elements*): Abnormal Rate: 88 Rhythm: sinus rhythm w/sinus arrythmia w/occ pvc QRS: LBB, PVC's AL Interval: normal ST Wave: normal 3 Time of EKG reading by physician:: 17:01 EKG Read and Signed by:: Edmond Jacobson EKG Interpretation (*Must complete 3 of following elements*): Abnormal Rate: 92 Rhythm: sinus rhythm w/pvc complexes or fusion complexes [place]: normal QRS: LBB [place] Interval: normal ST Wave: normal - XRAY 1 XRAY: Bilateral XRAY Study: Chest Impression: See EMR Report (EXAM: CHEST-1 VIEW 04/08/2019 HISTORY: DYSPNEA TECHNIQUE: AP portable semiupright at 1553 COMMENT: Considering differences in technique and inspiration there has been no significant change since 02/23/2019. IMPRESSION: No acute disease. Electronically signed by Eduardo Howell 04/08/2019 3:59 PM 04/08/19 1559 Interpreting Physician: Eduardo Howell MD Dictated Date/Time: 04/08/19 1558 cc: Edmond Siegel MD; Juan Olea MD) - CONSULTS/PCP/HOSPITALIST Notification #1 *Consult/PCP/Hospitalist*: [facility] transfer center Time Discussed: 16:18 Reason/Comments: will fly pt when a bed opens Consult Disposition: Admit Departure - Departure Date of Disposition Decision: 04/08/19 Time of Disposition Decision: 17:30 DIAGNOSIS: Hyperkalemia, Idioventricular rhythm, Metabolic acidemia, ATUL (acute kidney injury) Disposition: ADMITTED INPATIENT 09 Certified Medical Emergency: Emergent Condition: Critical Referrals and Follow-Ups: Juan Olea MD [Primary Care Provider] - - Critical Care Note This patient required my direct & personal management of CC.: Yes Total Time (mins): 100 Critical Care Statement: This patient required my direct personal management to treat or rule out processes, the absence of which, could potentiallly result in sudden, clinically significant life or limb threatening deterioration. Attestation - Physician/ BIB Attestation Patient care was provided by Advanced Practice Provider:: No The physician spent face to face time with patient:: Yes Advanced Practice Provider documentation review:: Supervising physician onsite and consulted in the evaluation and care of this patient. The physician did have a face to face encounter with the patient. This chart was documented by the indicated scribe, (Keiry Steele Scribe) and accurately reflects the services I performed and decisions made by me, Edmond Jacobson MD, as attested by the provider's signature.
[2019-04-08 18:00] LABS: CALCIUM 11.6 mg/dL (8.8-10.2); CREATININE 2.3 mg/dL (0.5-0.9); POTASSIUM 5.6 mmol/L (3.5-5.1)
[2019-04-08] MEDS: NS 1,000 ML IV SCH (20:10)
[2019-04-08] MEDS: MORPHINE IV PRN (20:15)
--- NOTE | 2019-04-08 20:42 | HISTORY AND PHYSICAL ---
CHIEF COMPLAINT: Altered mental status and difficulty breathing. HISTORY OF PRESENT ILLNESS: This is a 68-year-old female who came into the emergency room by EMS with complaints of having shortness of breath and dizziness along with some altered mental status. The patient states that she has been feeling well but this afternoon at about 2:50 p.m. felt dizzy and had altered mental status. She was also feeling shortness of breath and therefore was brought into the emergency room by EMS. Here at the emergency room, she was noted to be having severe tachycardia with heart rate in the 30s. The patient is a poor historian. PAST MEDICAL HISTORY: 1. Hypertension. 2. TIA. FAMILY HISTORY: Noncontributory. SOCIAL HISTORY: Patient denies having any smoking history and does not drink any alcohol. She does not use any recreational drugs. ALLERGIES: The patient reports to be allergic to NSAIDs and aspirin along with ramipril. CURRENT HOME MEDICATIONS: 1. Losartan 100 mg orally once daily. 2. Hydrochlorothiazide 12.5 mg orally once daily. 3. Amlodipine 10 mg orally once daily. 4. Clonidine 0.2 mg/hour patch every week. 5. Clopidogrel 75 mg orally once daily. 6. Furosemide 40 mg orally once daily. 7. Hydralazine 25 mg orally 3 times a day. 8. Bystolic 10 mg orally once daily. 9. Potassium chloride 20 mEq orally twice daily. REVIEW OF SYSTEMS: A full 14-point review of systems was obtained that was pretty much the same as already had been explained in the HPI. PHYSICAL EXAMINATION: VITAL SIGNS: Temperature is 98 degrees, pulse 78 per minute, respiratory rate 20 per minute, blood pressure 109/59, pulse oximetry 99% on 3 L of oxygen via nasal cannula. GENERAL: Patient is alert and oriented x3. She does not appear to be in any acute distress. HEENT: Within normal limits. NECK: Supple without any thyromegaly. LYMPHATICS: No lymphadenopathy noted in the neck region. CHEST: Chest wall is nontender. CARDIOVASCULAR SYSTEM: First and second heart sounds are audible without any murmurs or gallops. RESPIRATORY SYSTEM: Bilateral lung air entry is moderately decreased, but there are no rales or rhonchi present on auscultation. GASTROINTESTINAL SYSTEM: Patient is obese. ABDOMEN: Soft and nontender. Normal bowel sounds are present. GENITOURINARY: Deferred. NEUROLOGIC: No focal deficits are present. INTEGUMENTARY: Skin is warm and dry without any rash. DIAGNOSTIC DATA: CBC is nondiagnostic and initial comprehensive metabolic panel showed potassium levels of 7.4, chloride 112, CO2 11, BUN 63, creatinine 2.5, glucose 156, AST 72 and ALT 55. Repeat labs showed potassium level improved to 5.6, chloride 113, CO2 15, BUN 60, and creatinine 2.3 with glucose levels of 172. Calcium levels were found to be 11.6, after she received IV calcium gluconate. Initial calcium levels were normal at 9.0. ProBNP has been elevated at 2078 and high sensitivity troponin T was 26 at 3:15 p.m. and repeat high sensitivity troponin T levels were found to be 21 at 1723. Arterial blood gases showed pH of 7.24, pCO2 of 24, and pO2 84 on 2 L of oxygen. Chest x-ray obtained at the emergency room did not show any acute finding. EKG done initially at 3:10 p.m. today showed idioventricular rhythm at the rate of 30 beats per minute. Repeat EKGs done at 6:56 and 7:01 p.m. showed improved EKG with sinus rhythm with ventricular rate in the 80s. EMERGENCY ROOM COURSE: The patient was found to have severe hypotension and was resuscitated with normal saline IV along with dopamine drip. She also received sodium bicarbonate IV push along with IV D50 and regular insulin. Furthermore, she received 2 doses of calcium chloride 1 g IV along with 2 dosages of atropine sulfate 1 g IV. IMPRESSION: This is a 68-year-old lady who has been seen at the emergency room and being admitted to the ICU with severe hypotension, idioventricular rhythm secondary to severe hyperkalemia and altered mental status secondary to hypotension and cardiac arrhythmia. She also appears to have metabolic acidosis, along with transaminasemia and acute kidney injury. These all appear to be related to medication intake. PLAN: I am going to hold all diuretics and antihypertensive medications including clonidine patch and give her IV normal saline at 150 mL/h. We will monitor her electrolytes and renal function and repeat basic metabolic panel in the next couple of hours. I am going to repeat labs including ABG, LFTs and CBC along with basic metabolic panel in the morning tomorrow as well. Her heart rhythm has normalized, and her vital signs have also improved, and I do not believe she will need any pressors at this time, but I am going to put her on dopamine drip just in case if she needs that. Further recommendations will be given as per outcome of these measures. cc: Roly Block MD MTDD
[2019-04-08 21:26] LABS: CREATININE 2.1 mg/dL (0.5-0.9); MAGNESIUM 1.9 mg/dL (1.5-2.7); POTASSIUM 5.5 mmol/L (3.5-5.1)
[2019-04-08 21:46] LABS: URINE SOURCE CATH
[2019-04-08 22:33] LABS: BILIRUBIN URINE NEGATIVE (NEGATIVE); BLOOD URINE NEGATIVE (NEGATIVE); COLOR YELLOW; GLUCOSE URINE NEGATIVE (NEGATIVE); KETONE URINE NEGATIVE (NEGATIVE); LEUKOCYTES URINE NEGATIVE (NEGATIVE); NITRITE URINE NEGATIVE (NEGATIVE); PH URINE 5.5; PROTEIN URINE TRACE mg/dL (NEGATIVE); SP GRAVITY URINE 1.018; TURBIDITY URINE CLEAR (CLEAR); UROBILINOGEN URINE NORMAL (NORMAL)
[2019-04-08 22:34] LABS: UR EPITHELIAL CELLS <10 /HPF (<10); URINE BACTERIA NEGATIVE /HPF; URINE RBC <10 /HPF (<10); URINE WBC <10 /HPF (<10)
[2019-04-09] MEDS: TYLENOL PO PRN (00:10)
[2019-04-09] MEDS: NS 1,000 ML IV SCH ×3 (02:42→10:19)
[2019-04-09 04:40] LABS: ALLEN TEST YES; BE -9.6 mmoll (-3.0-3.0); BLOOD TYPE ARTERIAL; HCO3-(ACT) 17.4 mmoll (20.0-26.0); METHB 1.2 % (0.0-1.5); MODALITY CANNULA; O2(CT) 16.8 mL/dL (15.0-23.0); O2HB 96.3 % (95.0-99.0); PCO2(98.6) 36 mmHg (35-45); PO2(98.6) 155 mmHg (60-100); SAMPLE BLOOD; THB 12.2 g/dL (11.5-17.4); pH(98.6) 7.27 (7.35-7.45)
--- NOTE | 2019-04-09 05:35 | EKG Report ---
Test Performed on : 04/09/2019 05:20:41 AM Test Reason : Hyperkalemia; Cardiac Arrhythmia Blood Pressure : / mmHG Vent. Rate : 052 BPM Atrial Rate : 052 BPM P-R Int : 192 ms QRS Dur : 136 ms QT Int : 498 ms P-R-T Axes : 054 025 112 degrees QTc Int : 463 ms Sinus bradycardia. Left bundle branch block Abnormal ECG When compared with ECG of 08-APR-2019 17:01, (Unconfirmed) fusion complexes are no longer present premature ventricular complexes. are no longer present Vent. rate has decreased BY 40 BPM T wave inversion less evident in Lateral leads Confirmed by Rosalino Antunez MD ([id number]) on 04/11/2019 5:28:48 PM
[2019-04-09 06:26] LABS: HEMATOCRIT 33.5 % (37.0-47.0); HEMOGLOBIN 10.9 g/dL (12.0-16.0); LYMPH# 0.73 X1000 (1.2-3.4); LYMPH% 25.3 % (20.5-51.1); MCH 32.7 PG (27-31); MCHC 32.5 g/dL (33-37); MCV 100.6 FL (81-99); MONO# 0.31 X1000 (0.11-0.59); MONO% 10.7 % (1.7-9.3); MPV 11.4 FL (7.4-10.4); NEUT# 1.85 X1000 (1.4-6.5); PLT 82 X1000 (130-400); RBC 3.33 XMIL (4.2-5.4); RDW 14.5 % (11.5-14.5); WBC 2.89 X1000 (4.8-10.8)
[2019-04-09] MEDS: MORPHINE IV PRN ×3 (06:36→20:03)
[2019-04-09 06:47] LABS: ALB/GLOB RATIO 1.5; ALBUMIN 3.3 g/dL (3.5-5.0); CALCIUM 10.2 mg/dL (8.8-10.2); CREATININE 1.7 mg/dL (0.5-0.9); DIRECT BILIRUBIN 0.2 mg/dL (0.00-0.20); POTASSIUM 5.9 mmol/L (3.5-5.1); TOTAL BILIRUBIN 0.5 mg/dL (0.20-1.00); TOTAL PROTEIN 5.5 g/dL (6.3-8.3)
[2019-04-09] MEDS ORDERED: PLAVIX PO SCH (09:00)
[2019-04-09] MEDS ORDERED: KAYEXALATE PO ONE (11:36)
--- NOTE | 2019-04-09 15:40 | PROGRESS NOTE ---
DATE: 04/09/2019 SUBJECTIVE: Patient denies having any acute complaints this morning and feels better. OBJECTIVE: Vital Signs: Temperature 97.1 degrees, pulse 70 per minute, respiratory rate 22 per minute, blood pressure 102/68, pulse oximetry 98% on 2 L of oxygen via nasal cannula. General: Patient is alert and oriented x3. She does not appear to be in any acute distress. Cardiovascular System: First and second heart sounds are audible without any murmurs or gallops. Respiratory System: Bilateral lung air entry is slightly decreased but there are no rales or rhonchi present on auscultation. Gastrointestinal System: Abdomen is soft and nondistended. Normal bowel sounds are present. DIAGNOSTIC DATA: CBC shows WBC count of 2.89 with a hemoglobin of 10.9 and hematocrit 33.5. In comparison, her hemoglobin and hematocrit were 12.8 and 38.5 yesterday. Chemistry showed potassium levels of 5.9, BUN 55, creatinine 1.7, AST 51 and ALT 47. Rest of the comprehensive metabolic panel is nondiagnostic. In comparison, her potassium levels were 5.5 last night with BUN and creatinine of 59 and 2.1 respectively last night. Her transaminases were slightly higher with AST of 72 and ALT 55 yesterday. ECG done this morning showed sinus rhythm with a ventricular rate of 52 beats per minute and left bundle branch block. Echocardiogram has been performed today the report of which is pending at the time of this dictation. IMPRESSION: Cardiac arrhythmia secondary to severe hyperkalemia and metabolic acidosis with acute kidney injury and transaminasemia all likely related to medication intake. Cannot rule out underlying cardiac etiology. PLAN: The patient will be continued to be admitted to the intensive care unit and I have recommended her to take Kayexalate 30 grams orally as a single dose to treat her hyperkalemia. We will continue with IV fluid normal saline at 150 mL/h. Her blood pressure has been stable without needing any pressors at this time. I am going to obtain Cardiology consultation to further assist us in taking care of this patient. All of her blood pressure lowering medications are on hold at this time. Further recommendations will be given as per hospital course. cc: Roly Block MD
[2019-04-09] MEDS: LR 1,000 ML IV SCH (16:53)
[2019-04-09] MEDS: ZOFRAN IV PRN (18:54)
--- NOTE | 2019-04-09 19:32 | CARDIOLOGY CONSULTATION ---
DATE: 04/09/2019 CONSULTATION REQUESTED BY: Dr. Olea's service, Dr. Block. REASON FOR CONSULTATION: Patient with abnormal EKG, bradycardia. HISTORY: Mrs. 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 At this time, she presented to the ER on April 08 at 3 p.m. with sudden onset of dyspnea, dizziness, weakness. Upon presentation, she was found to be profoundly bradycardic. According to the records, her pulse rate was in the upper 20s and low 30s. EKG showed a heart block with idioventricular escape rhythm. Her potassium level at the time of initial encounter was measured at 7.4 mEq/L. Following that, she was given the usual treatments with calcium chloride, D50, etc., and eventually her potassium has come down to 5.9 mEq. Her heart rate also has improved and she appears to be now in a sinus mechanism with a heart rate that is presently at 70 per minute. She is still feeling somewhat short of breath. The patient states that she had been doing perfectly fine until she developed herpes labialis and that led to the prescription of valacyclovir and she took a total of 4 pills of it approximately 48 hours prior to the onset of her symptoms. She had also noted some decreased urinary output and she had not been drinking a whole lot of water. PAST HISTORY: Positive for hypertension for many years. In the past, she has [facility] [place] [facility] [address]. Dr. Dowell found "normal coronaries". In fact, she does have some plaque in the right coronary artery 20 to 30 percent however the left coronary system was normal. The patient has hypertension for many years. She has had a transient ischemic attack in the past. She had pneumonia. She has had arthritis. 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 SURGICAL HISTORY: She had cholecystectomy, hysterectomy. SOCIAL HISTORY: to her for 35 years. They have 1 daughter. Her daughter actually works for Dr. Olea. FAMILY HISTORY: Positive for coronary heart disease. HOME MEDICATIONS: At the time of admission included amlodipine 10 mg daily, clonidine as directed, clopidogrel 75 mg daily, losartan 100 daily, Bystolic 1 tablet daily, hydralazine 25 three times a day, hydrochlorothiazide 1 tablet daily, atropine diphenoxylate daily. ALLERGIES: She is allergic to aspirin, ramipril and nonsteroidal anti- inflammatory agents. REVIEW OF SYSTEMS: The patient has really had no issues until just the onset of her herpes labialis. No other trouble, she just has to walk with a brace. PHYSICAL EXAMINATION: Right now blood pressure 105/42, temperature 97.7 degrees, pulse 71, respirations 21. She is awake, alert, oriented, in no distress.HEENT: Unremarkable. Chest: Sounds relatively clear to auscultation and percussion. Heart: Sounds are regular and rhythmic. Abdomen: Nontender. Extremities: Showed no edema. 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 The pulses are really good. Neurological: Nonfocal. Moves 4 extremities. BLOOD WORK: Right now her hemoglobin is 10.9, white cell count is 2890. IMPRESSION: 1. Patient who presented with acute renal failure and hyperkalemia. I believe this would be an uncommon complication of valacyclovir probably added to a regimen of MIR inhibitors, beta blockers and diuretics. 2. Heart block secondary to hyperkalemia. This has resolved. 3. Patient has an abnormal EKG, left bundle branch block and this is not new. She has had the left bundle branch block for the past 3 years. There are EKGs from 05/12/2016 that showed that morphology. 4. History of poliomyelitis as a child. 5. History of transient ischemic attack. RECOMMENDATION: At this time we will keep her on Ringer's lactate. I will request an ultrasound of the kidneys. We should probably get a consultation with Nephrology for opinion. At any rate, the hyperkalemia seems to be resolving clinically. cc: MD Roly Atkins MD [facility]
[2019-04-10] MEDS: LR 1,000 ML IV SCH ×4 (00:02→23:14)
[2019-04-10] MEDS: MORPHINE IV PRN ×3 (00:03→09:39)
[2019-04-10] MEDS: ZOFRAN IV PRN ×4 (00:03→14:48)
[2019-04-10 07:13] LABS: HEMATOCRIT 32.9 % (37.0-47.0); HEMOGLOBIN 10.7 g/dL (12.0-16.0); LYMPH# 0.84 X1000 (1.2-3.4); MCH 33.3 PG (27-31); MCHC 32.5 g/dL (33-37); MCV 102.5 FL (81-99); MONO# 0.21 X1000 (0.11-0.59); MPV 11.4 FL (7.4-10.4); NEUT# 1.05 X1000 (1.4-6.5); PLT 63 X1000 (130-400); RBC 3.21 XMIL (4.2-5.4); RDW 14.5 % (11.5-14.5)
[2019-04-10 08:00] LABS: AGAP 13; ALB/GLOB RATIO 1.7; ALBUMIN 3.4 g/dL (3.5-5.0); ALKALINE PHOSPHATASE 88 U/L (32-104); BUN 24 mg/dL (8-22); CALCIUM 9.4 mg/dL (8.8-10.2); CHLORIDE 113 mmol/L (98-107); COSMO 288; CREATININE 0.9 mg/dL (0.5-0.9); ESTIMATED GFR > 60; GLUCOSE 80 mg/dL (70-104); GOT 58 U/L (10-30); GPT 46 U/L (10-36); POTASSIUM 4.8 mmol/L (3.5-5.1); SODIUM 143 mmol/L (136-145); TCO2 17 mmol/L (25-35); TOTAL BILIRUBIN 0.38 mg/dL (0.20-1.00); TOTAL PROTEIN 5.4 g/dL (6.3-8.3)
[2019-04-10] MEDS ORDERED: LOPRESSOR PO SCH (11:00)
--- NOTE | 2019-04-10 12:59 | PROGRESS NOTE ---
DATE: 04/10/2019 SUBJECTIVE: Patient denies having any acute complaints this morning and feels well. OBJECTIVE: Vital Signs: Temperature 98.3 degrees, pulse is 88 per minute, respiratory rate 25 per minute, blood pressure 112/71, pulse oximetry 95% on room air. General: Patient is alert and oriented x3. She does not appear to be in any acute distress. Cardiovascular System: First and second heart sounds are audible without any murmurs or gallops. Respiratory System: Bilateral lung air entry is good without any rales or rhonchi. Gastrointestinal System: Abdomen is soft and nondistended. Normal bowel sounds are present. Diagnostic Data: CBC shows WBC count of 2.10, hemoglobin 10.7, hematocrit 32.9, and platelet count of 63,000. In comparison, her CBC from yesterday showed WBC count of 2.89, hemoglobin 10.9, hematocrit 33.5, and platelet count of 82,000. On admission 2 days ago, on 04/08/2019, her WBC count was 5.73, hemoglobin 12.8, hematocrit 38.5, and platelet count of 172,000. Some of the drop of hemoglobin and hematocrit could be secondary to hemodilution since we have been giving her fluids intravenously. Comprehensive metabolic panel showed improved potassium levels from 5.9 yesterday to 4.8 today. Chloride is 113, CO2 is 17, BUN 24, and creatinine 0.9. In comparison, her BUN and creatinine were 55 and 1.7 respectively yesterday. AST is still elevated at 58 and ALT is still elevated slightly at 46. Rest of the comprehensive metabolic panel is nondiagnostic. IMPRESSION AND PLAN: This is a 68-year-old female who was initially admitted with severe hyperkalemia causing idioventricular rhythm and metabolic acidosis, along with acute kidney injury and transaminasemia. Her kidney function has normalized and metabolic acidosis has also improved. She has been having good heart rhythm, although she does have a left bundle branch block that is not new as per cardiology. She has developed pancytopenia which I am not sure of the etiology and therefore I am going to obtain hematology consultation with Dr. Escobar. Otherwise, her overall condition has improved and therefore I am going to transfer her out of intensive care unit to the regular medical floor. We will continue to monitor her blood counts and electrolytes, along with renal function. Dr. Olea is going to take over the patient's care from tomorrow morning. cc: Roly Block MD MTDD
--- NOTE | 2019-04-10 13:22 | CARDIOLOGY PROGRESS NOTE ---
DATE: 04/10/2019 CHIEF COMPLAINT: Weakness. SUBJECTIVE: Ms. Quesada is feeling better today. Her kidney function is improving. She is not having any pain. Telemetry shows that she is in sinus rhythm with episodes of PACs and PVCs. OBJECTIVE: Blood pressure is 122/59, temperature 98.2, respirations 19, pulse 91. Awake, alert and oriented, no distress. HEENT is normal. Chest clear to auscultation and percussion. Heart sounds are regular and rhythmic, some extrasystole. Abdomen is nontender. Extremities showed no edema. Neurologic: Follows commands, moves all 4 extremities. IMPRESSION: 1. The patient presented with symptomatic Bradycardia due to Heart Block ,3rd degree, secondary to severe Hyperkalemia due to acute renal failure secondary to a combination of valacyclovir plus all of her diuretics and antihypertensive drugs. This is resolving. Patient is normokalemic now. 2. Abnormal EKG with a left bundle branch block. 3. History of hypertension. 4. History of poliomyelitis as a child. 5. Transient ischemic attack. RECOMMENDATIONS: At this time, we will continue present therapy. I put her on Ringer's lactate yesterday. I would suggest to keep her on that medicine, and we will let her go to the floor today. Her chemistry panel from today shows a sodium of 143, potassium 4.8, BUN is 24, creatinine is 0.9. We will follow her along. cc: MD Roly Atkins MD MTD
--- NOTE | 2019-04-10 17:08 | ECHO REPORT ---
ORDER DATE: 04/09/2019 INDICATION: Elevation of proBNP level. Possible CHF. M-MODE MEASUREMENTS: Left ventricle end diastole: 3.7. Left ventricle end systole: 2.7. Posterior wall: 0.9. Interventricular septum: 0.9. Left atrium: 3.8. SUMMARY OF 2-DIMENSIONAL IMAGIN. Left ventricular function is normal. Ejection fraction is 68%. There is no wall motion abnormality noted. 2. The mitral annulus shows some calcification. The mitral valve shows a mild to moderate degree of regurgitation. 3. The pulse wave Doppler of mitral inflow shows normal E/A ratio. 4. Tissue Doppler of septal and lateral mitral annulus averages 10 cm. 5. The aortic valve shows some sclerosis of the cusps without stenosis. 6. The pulmonic valve is grossly normal. 7. The tricuspid valve shows a moderate degree of regurgitation. 8. Pulmonary systolic pressure is estimated at 46 to 51 mmHg. 9. There is no pericardial effusion, mass, and no thrombus. 10.The left atrium is moderately to significantly enlarged. Clinical correlation is recommended. cc: MD Roly Atkins MD
[2019-04-10] MEDS: PHENERGAN IV PRN (18:17)
[2019-04-10] MEDS: SODIUM CHLORIDE 0.9% INJ PRN (18:17)
[2019-04-11] MEDS: SODIUM CHLORIDE 0.9% INJ PRN ×3 (03:25→16:34)
[2019-04-11] MEDS: PHENERGAN IV PRN ×3 (03:26→16:35)
[2019-04-11 07:09] LABS: HEMATOCRIT 31.1 % (37.0-47.0); HEMOGLOBIN 10.3 g/dL (12.0-16.0); LYMPH# 0.69 X1000 (1.2-3.4); LYMPH% 34.8 % (20.5-51.1); MCH 32.6 PG (27-31); MCHC 33.1 g/dL (33-37); MCV 98.4 FL (81-99); MONO# 0.24 X1000 (0.11-0.59); MONO% 12.1 % (1.7-9.3); NEUT# 1.05 X1000 (1.4-6.5); NEUT% 53.1 % (42.2-75.2); PLT 64 X1000 (130-400); RBC 3.16 XMIL (4.2-5.4); RDW 13.5 % (11.5-14.5); WBC 1.98 X1000 (4.8-10.8)
[2019-04-11 07:39] LABS: AGAP 13; BUN 9 mg/dL (8-22); CALCIUM 8.8 mg/dL (8.8-10.2); CHLORIDE 112 mmol/L (98-107); COSMO 295; CREATININE 0.7 mg/dL (0.5-0.9); ESTIMATED GFR > 60; GLUCOSE 97 mg/dL (70-104); POTASSIUM 3.5 mmol/L (3.5-5.1); SODIUM 149 mmol/L (136-145); TCO2 24 mmol/L (25-35)
--- NOTE | 2019-04-11 07:39 | Diag Imaging Result Doc PS360 ---
CHEST-PORTABLE - 04/11/2019 INDICATION: sob COMPARISON: 04/08/2019 FINDINGS: Stable low lung volumes. There is scattered linear atelectasis in the lung bases. No definite infiltrates. Heart size and pulmonary vascularity is top normal. IMPRESSION: Low lung volumes with microatelectasis in the bases. Electronically signed by Jimmy Ferrer 04/11/2019 7:36 AM
--- NOTE | 2019-04-11 07:44 | EKG Report ---
Test Performed on : 04/11/2019 06:56:49 AM Test Reason : abnormal eKG Blood Pressure : / mmHG Vent. Rate : 088 BPM Atrial Rate : 088 BPM P-R Int : 174 ms QRS Dur : 122 ms QT Int : 382 ms P-R-T Axes : 064 029 119 degrees QTc Int : 462 ms Normal sinus rhythm. Possible Anterior infarct , age undetermined T wave abnormality, consider lateral ischemia Abnormal ECG When compared with ECG of 09-APR-2019 05:20, (Unconfirmed) Vent. rate has increased BY 36 BPM Left bundle branch block is no longer present Borderline criteria for Anterior infarct are now present Confirmed by Rosalino Antunez MD ([id number]) on 04/11/2019 5:30:51 PM
--- NOTE | 2019-04-11 07:59 | PROGRESS NOTE ---
DATE: 04/11/2019 SUBJECTIVE: A 68-year-old white female patient admitted with shortness of breath and dizziness along with some altered mental status. The patient states she started feeling bad around 2:50 on the day of admission. She was feeling dizzy, and had altered mental status. She also had some shortness of breath. In the emergency room when she came, she was found to be bradycardic. She had hyperkalemia. Patient evaluated and admitted to ICU initially. The patient was started on IV fluid. Her hyperkalemia treated appropriately. Cardiology consult obtained with Dr. Conteh. Recommendation was noted. The patient seems to be doing better. No chest pain. Mild cough with scanty sputum production. Denied any nausea or vomiting. Oral intake is fair. PAST MEDICAL HISTORY: Significant for hypertension, TIA, pneumoniae, arthritis, COPD and post- polio syndrome. Admission history and physical and Cardiology consult noted OBJECTIVE: Vital Signs: Blood pressure 138/58, pulse 88, respirations 24, and temperature 98.1 degrees. Skin: Senile turgor. Neck: Supple. No JVD. Lungs: Bibasilar crepitation. Heart: S1 and S2 heard. No gallop or thrill. Abdomen: Soft. No distention. Bowel sounds present. Extremities: No cyanosis or clubbing. Patient does have deformity of the left foot. COOK NIGHT: Alert, awake, and answering questions fairly well. Able to move all 4 limbs. LABORATORY DATA: Lab data done today. Her platelet count was 64,000. WBC count 1.98, hemoglobin 10.3 and hematocrit 31.1. Electrolytes done yesterday noted. CONSIDERATION: 1. Patient admitted with hyperkalemia. Acute kidney injury improved Estuardo arrhythmia and cytopenia. Dr. Escobar following patient with us. Appreciate Dr. Conteh's help managing this patient. 2. History of hypertension post-polio syndrome. I am going to get chest x-ray done. Continue the rest of the treatment, and close observation. 3. I am going to add bronchodilator treatment. cc: MD Roly Wilson MD
[2019-04-11] MEDS: SYMBICORT 160/4.5 MICROGM INHALER INH SCH ×2 (09:04→19:58)
[2019-04-11] MEDS ORDERED: GRANIX SUBQ ONE (09:14)
[2019-04-11 09:31] LABS: RETIC% 1.98 % (0.8-2.1); RETIC-HE 40.4 PG (28.2-36.6)
--- NOTE | 2019-04-11 10:09 | Diag Imaging Result Doc PS360 ---
US SPLEEN (LIMITED) - 04/11/2019 INDICATION: thrombocytopenia TECHNIQUE: COMPARISON: None FINDINGS: The spleen is enlarged. Echotexture is normal. Normal color Doppler blood flow. The spleen measures 16.6 x 16.3 x 5.5 cm. IMPRESSION: Moderate splenomegaly. Electronically signed by Jimmy Ferrer 04/11/2019 10:07 AM
--- NOTE | 2019-04-11 10:17 | Diag Imaging Result Doc PS360 ---
US RENAL 2 (RETROPER) COMPLETE - 04/11/2019 INDICATION: acute renal failure TECHNIQUE: COMPARISON: None FINDINGS: The kidneys are normal in echotexture. No hydronephrosis, mass, or cyst. The right kidney measures 9.5 x 5.2 x 4.4 cm. The left kidney measures 9.3 x 5.2 x 4.3 cm. Cortex measures about 11 mm bilaterally. The urinary bladder is normal and filled with clear urine. IMPRESSION: Negative exam. Electronically signed by Jimmy Ferrer 04/11/2019 10:15 AM
--- NOTE | 2019-04-11 10:39 | EKG Report ---
Test Performed on : 04/08/2019 5:01:00 PM Test Reason : ED. NO EKG ORDER FOR MUSE Blood Pressure : / mmHG Vent. Rate : 092 BPM Atrial Rate : 092 BPM P-R Int : 154 ms QRS Dur : 136 ms QT Int : 384 ms P-R-T Axes : 030 006 164 degrees QTc Int : 474 ms Sinus rhythm. with premature ventricular complexes. or fusion complexes Left bundle branch block Abnormal ECG When compared with ECG of 08-APR-2019 15:10, (Unconfirmed) Sinus rhythm. has replaced Idioventricular rhythm. Vent. rate has increased BY 62 BPM Unconfirmed Result
[2019-04-11] MEDS: LR 1,000 ML IV SCH (12:15)
[2019-04-11] MEDS: TYLENOL PO PRN ×2 (12:17→22:40)
[2019-04-11] MEDS: FOLIC ACID PO SCH (15:53)
--- NOTE | 2019-04-11 16:21 | CARDIOLOGY PROGRESS NOTE ---
DATE: 04/11/2019 CHIEF COMPLAINT: Weakness. Dizziness. Heart block. SUBJECTIVE: Mrs. Quesada is feeling better. Right now she is having some slight wheezing and cough. She denies having any chest pain. Her chest x-ray today has been reported as indicating low lung volumes with microatelectasis in the bases. Telemetry shows sinus rhythm with PACs and PVCs. Otherwise, she is not having a great appetite. She wants to eat something from home. OBJECTIVE: Vital Signs: Blood pressure is 124/77, temperature 98 degrees, pulse 77, sinus regular, and respirations 14. General: She is awake, alert, in no distress. HEENT: Unremarkable. Chest: Sounds clear when listening to the bases of the lungs. At the top of the lungs there is slight end expiratory wheezing. Heart: Sounds are regular with occasional extrasystole. Abdomen: Nontender. Extremities: Showed no edema. Neurologic: Follows commands, moves all four extremities. DIAGNOSTIC DATA: Blood work showed sodium of 149, potassium 3.5, BUN 9, creatinine 0.7. ProBNP is 7443. That probably reflects renal dysfunction more than heart failure. The white count is down to 1980. The platelet count is 64,000. Hemoglobin 10.3. IMPRESSION: 1. The patient who presented with acute renal failure, hyperkalemia, and consequent heart block from it. 2. Abnormal electrocardiogram with a left bundle branch block. 3. Pancytopenia with leukopenia, thrombocytopenia, and anemia. 4. History of hypertension. 5. History of transient ischemic attack. RECOMMENDATIONS: At this time, the patient's renal failure has subsided. She has a little bit of hypernatremia. She probably has some water deficit. She needs to drink more water. I will discontinue the Ringer's lactate. Her potassium is actually borderline low now. Hematology/Oncology has been consulted for the pancytopenia. Cardiac art I do not have any further recommendations. I have told her that probably we need to discontinue most of her medications. We will have to rearrange her drug regimen once she is in a better clinical condition. At this time, the Oncology service is going to deal with the pancytopenia. I will stand by and call me if you need any further assistance. cc: MD Roly Atkins MD
[2019-04-11] MEDS ORDERED: LASIX IV ONE (18:52)
--- NOTE | 2019-04-11 21:10 | HEMO/ONC CONSULTATION ---
DATE: 04/11/2019 REASON FOR CONSULTATION: Thrombocytopenia. HISTORY OF PRESENT ILLNESS: This is a 68-year-old female who came to the emergency department via EMS with a complaint of shortness of breath and dizziness along with some altered mental status this past Thursday04/08/2019. The patient had been feeling well in the afternoon and then began to fell dizziness and had some altered mental status. Her evaluation in the ER showed that she had severe bradycardia with a heart rate in the 30s. The patient was a poor historian. She was initially admitted to the ICU for the treatment of hyperkalemia and cardiology was consulted. Since her admission, the patient has been diagnosed with an acute renal failure, hyperkalemia, and consequent heart block from it. She has also had pancytopenia and we will evaluate further. PAST MEDICAL HISTORY: Hypertension, TIA. SOCIAL HISTORY: Patient denies smoking, alcohol, or illicit drug use. ALLERGIES: NSAIDs, aspirin, ramipril. CURRENT HOME MEDICATIONS: Losartan, hydrochlorothiazide, amlodipine, clonidine, clopidogrel, furosemide, hydralazine, Bystolic, potassium chloride. REVIEW OF SYSTEMS: The patient was very tired this morning and was not wanting to conversate much. She had no complaint of pain. Stated that she was tired. PHYSICAL EXAMINATION: Vital Signs: Temperature 98.0 degrees, pulse rate 77, respiratory rate 14, blood pressure 124/77, O2 saturation 95% on room air. The patient is in 0/10 pain. General: The patient is alert and oriented. She does not appear to be in any acute distress. HEENT: Sclerae is anicteric. PERRLA. Oral mucosa is normal. Cardiovascular: Heart sounds are irregular. Respiratory: Lung sounds are clear bilaterally. Normal respiratory effort. Gastrointestinal: Abdomen is soft, nontender, nondistended. Neurological: Alert and oriented x3. LABORATORY: WBCs 1.98, hemoglobin 10.3, hematocrit 31.1, platelet count 64,000. ANC 1.05, reticulocyte count 1.98. Sodium 149. ProBNP 7443. Vitamin B12 1469, folate acid 5.6. RADIOLOGY: Spleen ultrasound shows splenomegaly at 16.6 cm. ASSESSMENT AND PLAN: 1. Thrombocytopenia. We will evaluate further labs. It is multifactorial. The patient has had acute renal failure. It could be splenic consumption or peripheral consumption. 2. The patient is also neutropenic. We will provide her with 1 dose of Neupogen today. 2. Osteoporosis. The patient normally sees us in the clinic for osteoporosis. She receives Reclast yearly in July. 3. Shortness of breath. Continue management per her primary medical doctor in pulmonology with the help of cardiology. 4. Heart block. Aware. Dictated by LIAN Rincon for Thomas Escobar MD cc: MD Roly Michaels MD MTDD
[2019-04-12] MEDS: PHENERGAN IV PRN ×2 (02:06→22:15)
[2019-04-12] MEDS ORDERED: KLOR-CON PO ONE (06:42)
--- NOTE | 2019-04-12 07:35 | PROGRESS NOTE ---
DATE: 04/12/2019 SUBJECTIVELY: Ms Quesada is feeling better. Occasional nausea. Oral intake is poor. No chest pain or palpitations. The patient does feel weak. Yesterday, patient had some pulmonary congestion. Her proBNP was elevated. I gave her Lasix. Pulmonary vasculature was top-normal. The patient diuresed well. OBJECTIVE: Vital signs: Noted. Neck: Supple. No JVD. Lungs: Bibasilar crepitation. Heart: S1 and S2 heard. Abdomen: Soft, globular. Bowel sounds present. Central nervous system: Alert, awake. Able to move all 4 limbs. Patient does have post-polio syndrome. LABORATORY DATA: Done yesterday noted. ProBNP was 7443. CONSIDERATION: 1. Hypertension. Blood pressure is stable without any medicine. We will continue monitoring. 2. Thrombocytopenia. Appreciate Dr. Escobar's help managing patient. 3. Her folic acid level is low. Patient is already on folic acid supplement started yesterday. 4. Cardiac arrhythmia, mainly bradyarrhythmia. Clinically doing better. 5. Pancytopenia. Patient had low-normal potassium yesterday. I am going to supplement potassium. Continue the rest of the treatment. Close observation. cc: MD Roly Wilson MD
[2019-04-12] MEDS: TYLENOL PO PRN ×2 (08:08→12:03)
[2019-04-12] MEDS: SYMBICORT 160/4.5 MICROGM INHALER INH SCH ×2 (08:19→20:10)
[2019-04-12] MEDS: FOLIC ACID PO SCH (09:21)
--- NOTE | 2019-04-12 13:19 | HEMO/ONC PROGRESS NOTE ---
DATE: 04/12/2019 SUBJECTIVE: Ms. Quesada refers to feeling better this morning. She is lying flat in bed, still resting this morning. She states she feels a lot better than she did yesterday, but she does have a headache today. She does feel as though she is weaker, but overall, she is improving. OBJECTIVE: Vital Signs: Temperature 99.9 degrees, pulse rate 72, respiratory rate 16, blood pressure 147/54, and O2 saturation 97% on room air. She is in 0/10 pain. General: On physical exam, the patient is in no acute distress. She is in pleasant spirits. HEENT: Sclerae are anicteric. PERRLA. Oral mucosa normal. Respiratory: Upper lungs mostly clear. Cardiovascular: Normal S1 and S2. Heart rate and rhythm irregular. Gastrointestinal: The abdomen is protuberant, soft, nontender. Neurological: Alert and oriented x3. No focal motor deficits. The patient does have post-polio syndrome. LABORATORY: Plasma lactate 1.2. Awaiting CBC pending. ASSESSMENT AND PLAN: 1. Thrombocytopenia. The patient has hypersplenism. Her thrombocytopenia is most likely due to this. We will continue to monitor. She will need a platelet transfusion for platelet count less than 20,000 or bleeding. We will continue to monitor peripherally. 2. Neutropenia. The patient was given 1 dose of Neupogen yesterday. CBC for improvement is pending for today. We will continue to monitor. 3. Osteoporosis. The patient has osteoporosis and receives Reclast yearly in July. 4. Shortness of breath. Continue management per her primary medical doctor and pulmonology and cardiology. 5. Heart block, aware. Continue with cardiology. Dictated by LIAN Rincon for Thomas Escobar MD Patient has splenomegaly and hypersplenism. Splenomegaly is most likely due to fatty liver, but we will check a flow cytometry to rule out hematologic process. Continue current management. Thomas Escobar MD cc: MD Roly Michaels MD [facility]
[2019-04-12 13:52] LABS: BASO# 0.02 X1000 (0.0-0.2); BASO% 0.2 % (0.0-0.8); EOS# 0.03 X1000 (0.0-0.7); EOS% 0.3 % (0.0-10.0); HEMATOCRIT 36.4 % (37.0-47.0); HEMOGLOBIN 12.4 g/dL (12.0-16.0); IMM GRAN# 0.03 X1000 (0.0-0.04); IMM GRAN% 0.3 % (0.0-0.5); LYMPH# 1.17 X1000 (1.2-3.4); LYMPH% 12.3 % (20.5-51.1); MCH 33.9 PG (27-31); MCHC 34.1 g/dL (33-37); MCV 99.5 FL (81-99); MONO# 0.72 X1000 (0.11-0.59); MONO% 7.6 % (1.7-9.3); MPV 10.6 FL (7.4-10.4); NEUT# 7.55 X1000 (1.4-6.5); NEUT% 79.3 % (42.2-75.2); PLT 73 X1000 (130-400); RBC 3.66 XMIL (4.2-5.4); WBC 9.52 X1000 (4.8-10.8)
[2019-04-12] MEDS: MORPHINE IV PRN (22:30)
[2019-04-13] MEDS ORDERED: CATAPRES PO PRN (06:41)
--- NOTE | 2019-04-13 07:20 | PROGRESS NOTE ---
DATE: 04/13/2019 SUBJECTIVE: Ms. Quesada is doing better. She denied any fever or chills. The patient did have some nausea and vomiting yesterday. No major headache. No chest pain or palpitations. Known case of hypertension. The patient's blood pressure 1 time was much higher. The patient was on multiple medicine at home. I am going to resume her Norvasc. The patient is ambulating well with physical therapy. OBJECTIVE: Vital signs noted. Her temperature was 99.9 degrees. Neck: Supple. No JVD. Lungs: Bibasilar crepitation. Heart: S1 and S2 heard. Abdomen: Soft, globular. Bowel sounds present. 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 The patient does have post-polio syndrome on the left leg. Patient's problems includes emergent hypertension. I am going to resume Norvasc. We will monitor heart rate and blood pressure. Thrombocytopenia improving. The patient had low-grade fever. I am going to repeat chest x-ray and clean-catch UA today. Bradyarrhythmia improving. We will check her labs. If clinical condition permits, we will plan discharging patient home today. cc: MD Roly Wilson MD
--- NOTE | 2019-04-13 07:25 | Diag Imaging Result Doc PS360 ---
CHEST-PORTABLE - 04/13/2019 INDICATION: fever COMPARISON: 04/11/2019 FINDINGS: Stable low lung volumes with mild bronchial vascular crowding. No infiltrates or edema. Heart size is normal. No large pleural effusion. IMPRESSION: Low lung volumes but no acute disease. Electronically signed by Jimmy Ferrer 04/13/2019 7:22 AM
[2019-04-13 07:45] LABS: BASO# 0.01 X1000 (0.0-0.2); BASO% 0.1 % (0.0-0.8); EOS# 0.02 X1000 (0.0-0.7); EOS% 0.3 % (0.0-10.0); HEMATOCRIT 33.7 % (37.0-47.0); HEMOGLOBIN 11.4 g/dL (12.0-16.0); IMM GRAN# 0.08 X1000 (0.0-0.04); LYMPH% 15.2 % (20.5-51.1); MCH 32.9 PG (27-31); MCHC 33.8 g/dL (33-37); MCV 97.4 FL (81-99); MONO# 0.62 X1000 (0.11-0.59); MONO% 7.9 % (1.7-9.3); MPV 10.4 FL (7.4-10.4); NEUT# 5.94 X1000 (1.4-6.5); NEUT% 75.5 % (42.2-75.2); PLT 86 X1000 (130-400); RBC 3.46 XMIL (4.2-5.4); RDW 13.9 % (11.5-14.5); WBC 7.87 X1000 (4.8-10.8)
[2019-04-13 08:27] LABS: URINE SOURCE CLEAN CATCH
[2019-04-13 08:27] LABS: AGAP 14; ALB/GLOB RATIO 1.5; ALBUMIN 3.5 g/dL (3.5-5.0); ALKALINE PHOSPHATASE 163 U/L (32-104); BUN 3 mg/dL (8-22); CALCIUM 8.5 mg/dL (8.8-10.2); CHLORIDE 105 mmol/L (98-107); COSMO 286; CREATININE 0.6 mg/dL (0.5-0.9); ESTIMATED GFR > 60; GLUCOSE 83 mg/dL (70-104); GOT 43 U/L (10-30); GPT 34 U/L (10-36); MAGNESIUM 1.2 mg/dL (1.5-2.7); SODIUM 146 mmol/L (136-145); TCO2 27 mmol/L (25-35); TOTAL BILIRUBIN 0.71 mg/dL (0.20-1.00); TOTAL PROTEIN 5.8 g/dL (6.3-8.3)
[2019-04-13 08:32] LABS: BILIRUBIN URINE NEGATIVE (NEGATIVE); BLOOD URINE NEGATIVE (NEGATIVE); COLOR YELLOW; GLUCOSE URINE NEGATIVE (NEGATIVE); KETONE URINE TRACE mg/dL (NEGATIVE); LEUKOCYTES URINE NEGATIVE (NEGATIVE); NITRITE URINE NEGATIVE (NEGATIVE); PROTEIN URINE 50 mg/dL (NEGATIVE); SP GRAVITY URINE 1.013; TURBIDITY URINE CLEAR (CLEAR); UR EPITHELIAL CELLS <10 /HPF (<10); URINE BACTERIA NEGATIVE /HPF; URINE RBC <10 /HPF (<10); URINE WBC <10 /HPF (<10); UROBILINOGEN URINE 2 mg/dL (NORMAL)
[2019-04-13 08:43] LABS: AMYLASE 37 U/L (20-200); LIPASE 23 U/L (13-60)
[2019-04-13] MEDS: MORPHINE IV PRN (09:48)
[2019-04-13] MEDS: NORVASC PO SCH ×2 (09:49→19:53)
[2019-04-13] MEDS: FOLIC ACID PO SCH (09:49)
[2019-04-13] MEDS: SYMBICORT 160/4.5 MICROGM INHALER INH SCH ×2 (09:50→20:10)
[2019-04-13] MEDS ORDERED: MAGNESIUM SULFATE 2 GM/S.W.I. 2 GM/50 ML IVPB IV ONE (10:58)
[2019-04-13] MEDS ORDERED: KLOR-CON PO ONE (10:59)
[2019-04-13] MEDS: ANUSOL-HC SUPP PR SCH ×2 (11:24→19:53)
[2019-04-13] MEDS: TYLENOL PO PRN ×2 (13:43→20:11)
[2019-04-13 16:49] LABS: FLOW CYTOMETERY SOURCE WHOLE BLOOD; LEUKEMIA LYMPHOMA BY FLOW REFERRED FOR TESTING
[2019-04-13] MEDS: [UNRECOGNIZED DRUG - OTHER] BOTH EYES SCH ×2 (17:34→19:52)
[2019-04-14] MEDS: [UNRECOGNIZED DRUG - OTHER] BOTH EYES SCH ×2 (02:43→08:03)
[2019-04-14] MEDS: ANUSOL-HC SUPP PR SCH ×2 (02:43→08:02)
[2019-04-14] MEDS: NORVASC PO SCH ×2 (02:43→08:02)
[2019-04-14 05:24] LABS: BASO# 0.01 X1000 (0.0-0.2); BASO% 0.2 % (0.0-0.8); EOS# 0.01 X1000 (0.0-0.7); EOS% 0.2 % (0.0-10.0); HEMATOCRIT 31.1 % (37.0-47.0); HEMOGLOBIN 10.7 g/dL (12.0-16.0); IMM GRAN# 0.06 X1000 (0.0-0.04); IMM GRAN% 1.3 % (0.0-0.5); LYMPH# 0.91 X1000 (1.2-3.4); LYMPH% 19.2 % (20.5-51.1); MCH 33.4 PG (27-31); MCHC 34.4 g/dL (33-37); MCV 97.2 FL (81-99); MONO# 0.48 X1000 (0.11-0.59); MONO% 10.1 % (1.7-9.3); MPV 10.3 FL (7.4-10.4); NEUT# 3.26 X1000 (1.4-6.5); PLT 75 X1000 (130-400); WBC 4.73 X1000 (4.8-10.8)
[2019-04-14 05:50] LABS: AGAP 11; ALB/GLOB RATIO 1.8; ALBUMIN 3.3 g/dL (3.5-5.0); ALKALINE PHOSPHATASE 81 U/L (32-104); BUN 5 mg/dL (8-22); CALCIUM 8.2 mg/dL (8.8-10.2); CHLORIDE 104 mmol/L (98-107); COSMO 277; CREATININE 0.6 mg/dL (0.5-0.9); ESTIMATED GFR > 60; GLUCOSE 98 mg/dL (70-104); GOT 35 U/L (10-30); GPT 28 U/L (10-36); POTASSIUM 3.2 mmol/L (3.5-5.1); SODIUM 140 mmol/L (136-145); TCO2 25 mmol/L (25-35); TOTAL BILIRUBIN 0.62 mg/dL (0.20-1.00); TOTAL PROTEIN 5.1 g/dL (6.3-8.3)
[2019-04-14] MEDS: SYMBICORT 160/4.5 MICROGM INHALER INH SCH (08:01)
[2019-04-14] MEDS: FOLIC ACID PO SCH (08:02)
[2019-04-14] MEDS: TYLENOL PO PRN (08:15)
[2019-04-14] MEDS ORDERED: [UNRECOGNIZED DRUG - OTHER] BOTH EYES SCH (09:00)
[2019-04-14] MEDS ORDERED: KLOR-CON PO SCH (09:00)
[2019-04-14 11:20] VITALS: BP 140/56
--- NOTE | 2019-04-14 21:40 | DISCHARGE SUMMARY ---
ADMISSION DATE: 04/08/2019 DISCHARGE DATE: 04/14/2019 FINAL DISCHARGE DIAGNOSIS: 1. Cardiac arrhythmia. 2. 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 3. Severe hyperkalemia. 4. Hypotension. 5. History of post-polio syndrome and left foot drop. 6. Transient ischemic attack. 7. Thrombocytopenia. 8. Acute kidney injury. 9. Metabolic acidosis. HOSPITAL COURSE: Ms Quesada 68-year-old white female patient admitted with shortness of breath, dizziness, weakness, altered mental status. The rest of the information as per HPI. The patient was admitted to ICU the initially. Her hyperkalemia treated and aggressively. The patient was given IV fluids for hypotension. Cardiology consult obtained with Dr. Conteh. The patient's clinical condition stabilized and improved and patient was transferred to the floor. Her blood pressure remained stable without any medication. Her hyperkalemia improved. Now the patient developed hypokalemia and hypomagnesemia, which we are treating accordingly. Patient did develop mild conjunctival congestion and I started her on Cortisporin eye drops, and patient was doing better. The patient denied any cough or chest congestion. No high-grade fever, chills. Clinically, patient is doing much better. She was very eager to go home. Hematology consult obtained with Dr. Escobar. Recommendation noted. Her vital signs reviewed. Blood pressure 140/56, pulse 70, respiration 15, temperature 99 degrees. Neck: Is supple. No JVD. Lungs: Bilateral good air entry present. CVS: S1 and S2 heard. Abdomen: Soft, globular. Bowel sounds present. 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 Patient does have post-polio syndrome, more prominent left lower leg. LABORATORY DATA: Revealed hemoglobin 10.7, hematocrit 31.1, platelet count 75,000. WBC count 4.73. PT/INR 1.10. PTT 29.1. Her blood gas results reviewed. Electrolytes: Potassium today was 3.2, sodium 140. Magnesium 1.7. Her magnesium checked yesterday was low. We supplemented her magnesium and potassium and clinically patient is doing better. Plasma lactate was normal. Amylase and lipase were normal. The patient had flow cytometry done by hematology oncology and result is pending. Overall the her chest x-ray: Low lung volumes but no acute disease. Overall, patient received maximum benefit of hospitalization. The patient is gaining, clinically doing much better. The patient was eager to go home and I am going to discharge patient home today. Overall discharge condition satisfactory. Fall precaution. Discharge medicine as per separate sheet. In case of more distress, call us back or go to emergency room. Monitor blood pressure at home. I resumed her Norvasc, gave her clonidine to use p.r.n. Patient will get blood work done on Thursday. In case of more distress, call us back or go to emergency room. Overall discharge condition satisfactory. cc: MD Roly Wilson MD
== END 2019-04-14 13:16 | disposition home or self-care (01) | DRG 641 ==
LOC: SUPCPDRO → ED 14:47 → ICU 18:19 → 4N 04-10 14:30
PROVIDERS: ADMIT Internal Medicine; ATTEND Internal Medicine